=== PATIENT | female | born 1985 | race Caucasian/White ===

== ENCOUNTER → 2017-05-28 | Outpatient (CLI) | payer BC ==
[2017-05-28 18:09] LABS: CH 30.9; CHCM 34.4; HCT 40.8 % (34.0-46.0); HGB 13.7 gm/dL (11.4-16.0); MCH 30.4 pg (25.0-35.0); MCHC 33.6 g/dL (31.0-37.0); MCV 90.5 fL (80.0-100.0); Mean Platelet Volume 7.8; RDW 13.6 % (11.5-15.5); WBC 8.4 k/uL (3.8-10.6)
[2017-05-28 18:23] LABS: ALT 52 U/L (9-52); AST 23 U/L (14-36); Alkaline Phosphatase 63 U/L (38-126); Anion Gap 11 mmol/L; Blood Urea Nitrogen 21 mg/dL (7-17); Calcium 9.8 mg/dL (8.4-10.2); Carbon Dioxide 26 mmol/L (22-30); Chloride 103 mmol/L (98-107); Cholesterol 206 mg/dL (<200); Glucose 113 mg/dL (74-99); HDL Cholesterol 46 mg/dL (40-60); Non-African American GFR(MDRD) >60 (>60 ml/min/1.73 sqM); Potassium 4.7 mmol/L (3.5-5.1); Sodium 140 mmol/L (137-145); Total Bilirubin 0.7 mg/dL (0.2-1.3); Total Protein 7.2 g/dL (6.3-8.2)
[2017-05-28 19:11] LABS: Vitamin B12 491 pg/mL (239-931)
== END | disposition home or self-care (01) ==
LOC: LABWHC1 17:23
PROVIDERS: ATTEND Family Medicine
DX: E04.9 Nontoxic goiter, unspecified (principal)
CPT/HCPCS: 36415; 80053; 80061; 82306; 82607; 84439; 84443; 85027; 86376; 86800

== ENCOUNTER → 2017-06-09 | Outpatient (CLI) | payer BC ==
--- NOTE | 2017-06-09 15:37 | US ---
EXAMINATION TYPE: US thyroid st tissue head/neck DATE OF EXAM: 06/09/2017 COMPARISON: NONE CLINICAL HISTORY: E04.9 NONTOXIC GOITER. Patient stated has band of neck thickening noted by dentist. GLAND SIZE: Right Lobe: 5.6 x 2.1 x 1.5 cm Overall Parenchyma: heterogenous Left Lobe: 4.3 x 1.7 x 1.1 cm Overall Parenchyma: heterogeneous Isthmus Thickness: 0.4 cm NODULES RIGHT: # of nodules measured on right: 0. Upper lateral lobe is noted on right thyroid. LEFT: # of nodules measured on left: 0 ISTHMUS: # of nodules measured in the isthmus: 0 Bilateral neck scanned, no evidence of lymphadenopathy. No discrete solid or cystic areas are evident. IMPRESSION: Mildly Heterogenous thyroid without discrete solid or cystic nodules.
== END | disposition home or self-care (01) ==
LOC: RADUSWWP 14:14
PROVIDERS: ATTEND Family Medicine
DX: E04.9 Nontoxic goiter, unspecified (principal)
CPT/HCPCS: 76536

== ENCOUNTER → 2019-01-14 | Outpatient (CLI) | payer BC | END | disposition home or self-care (01) | LOC: LABWHC1 13:55 | PROVIDERS: ATTEND Obstetrics & Gynecology | DX: O20.0 Threatened abortion (principal); Z3A.00 Weeks of gestation of pregnancy not specified | CPT/HCPCS: 36415; 84702 ==

== ENCOUNTER 2019-02-07 09:56 | Emergency (ER) | payer BC ==
[2019-02-07 10:01] VITALS: TEMP 97.8
--- NOTE | 2019-02-07 10:12 | ED ---
Extremity Problem HPI - General Chief complaint: Extremity Problem,Nontraumatic Stated complaint: poss blood clot Time Seen by Provider: 02/07/19 10:04 Source: patient, RN notes reviewed Mode of arrival: ambulatory Limitations: no limitations - History of Present Illness Initial comments: 33-year-old female presents emergency Department chief complaint right leg pain, swelling and warmth. Patient states that she woke up tonight with the cramping that was severe, took a long period time to resolve. Patient states she occasionally does get these cramps was never had this was a long. Patient states she saw some soreness this morning. Patient is concerned about possible DVT ago she denies any history or risk factors. Denies hormone therapy, control, smoking history, family history of clots or clotting disorders. Patient states she did travel tramadol though she was on the vehicle for a few hours. - Related Data Home Medications Medication Instructions Recorded Confirmed Labetalol [Trandate] 100 mg PO BID 02/07/19 02/07/19 Allergies Allergy/AdvReac Type Severity Reaction Status Date / Time sulfamethoxazole Allergy Unknown Verified 02/07/19 10:21 [From Bactrim] Childhood trimethoprim [From Bactrim] Allergy Unknown Verified 02/07/19 10:21 Childhood Review of Systems ROS Statement: Those systems with pertinent positive or pertinent negative responses have been documented in the HPI. ROS Other: All systems not noted in ROS Statement are negative. Past Medical History Past Medical History: Asthma Additional Past Medical History / Comment(s): Gestational diabetes History of Any Multi-Drug Resistant Organisms: None Reported Past Surgical History: Adenoidectomy, Tonsillectomy Additional Past Surgical History / Comment(s): wisdom teeth extraction Past Anesthesia/Blood Transfusion Reactions: No Reported Reaction Past Psychological History: Anxiety Smoking Status: Never smoker Past Alcohol Use History: None Reported Past Drug Use History: None Reported - Past Family History Mother Family Medical History: Diabetes Mellitus General Exam Limitations: no limitations General appearance: alert, in no apparent distress Head exam: Present: atraumatic, normocephalic, normal inspection Respiratory exam: Present: normal lung sounds bilaterally. Absent: respiratory distress, wheezes, rales, rhonchi, stridor Cardiovascular Exam: Present: regular rate, normal rhythm, normal heart sounds. Absent: systolic murmur, diastolic murmur, rubs, gallop, clicks GI/Abdominal exam: Present: soft, normal bowel sounds. Absent: distended, tenderness, guarding, rebound, rigid Extremities exam: Present: other (Right calf there is tenderness with palpation, mild swelling, pedal pulses equal bilaterally, there is mild area of warmth with no erythema.) Skin exam: Present: warm, dry, intact, normal color. Absent: rash Course Vital Signs 02/07/19 09:58 Temperature 97.8 F Pulse Rate 90 Respiratory 18 Rate Blood Pressure 131/82 O2 Sat by Pulse 98 Oximetry Medical Decision Making - Medical Decision Making 33-year-old female presented for Pain. Ultrasound is negative for acute DVT. Patient has leg cramps, pain related to muscle spasm. Patient will be discharged. Disposition Clinical Impression: Calf pain, Leg cramp Disposition: HOME SELF-CARE Condition: Stable Instructions (If sedation given, give patient instructions): Leg Cramps (ED) Additional Instructions: Please return to the Emergency Department if symptoms worsen or any other concerns. Is patient prescribed a controlled substance at d/c from ED?: No Referrals: Tomasz Sanchez III, MD [Primary Care Provider] - 1-2 days
--- NOTE | 2019-02-07 11:10 | US ---
EXAMINATION TYPE: US venous doppler duplex LE RT DATE OF EXAM: 02/07/2019 10:10 AM COMPARISON: NONE CLINICAL HISTORY: 33-year-old female Pain. Right calf pain x 1 day SIDE PERFORMED: Right TECHNIQUE: The lower extremity deep venous system is examined utilizing real time linear array sonog erinn with graded compression, doppler sonography and color-flow sonography. FINDINGS: VESSELS IMAGED: External Iliac Vein (EIV) Common Femoral Vein Deep Femoral Vein Greater Saphenous Vein * Femoral Vein Popliteal Vein Small Saphenous Vein * Proximal Calf Veins (* superficial vessels) Right Leg: Appears negative for DVT IMPRESSION: No evidence for DVT within the right lower extremity imaged from the groin to the upper calf.
[2019-02-07 11:57] VITALS: BP 122/86; PULSE 97; RESP 20
== END 2019-02-07 11:57 | disposition home or self-care (01) ==
LOC: EC 09:56
DX: G47.62 Sleep related leg cramps (principal); M79.661 Pain in right lower leg; M62.831 Muscle spasm of calf; Z79.899 Other long term (current) drug therapy; Z88.1 Allergy status to other antibiotic agents; Z88.2 Allergy status to sulfonamides
CPT/HCPCS: 99283

== ENCOUNTER → 2019-02-11 | Outpatient (CLI) | payer BC | END | disposition home or self-care (01) | LOC: LABWHC1 10:22 | PROVIDERS: ATTEND Obstetrics & Gynecology | DX: N91.2 Amenorrhea, unspecified (principal) | CPT/HCPCS: 36415; 84702 ==

== ENCOUNTER → 2019-02-13 | Outpatient (CLI) | payer BC | END | disposition home or self-care (01) | LOC: LABWHC1 10:03 | PROVIDERS: ATTEND Obstetrics & Gynecology | DX: Z34.80 Encounter for supervision of other normal pregnancy, unspecified trimester (principal) | CPT/HCPCS: 36415; 84702 ==

== ENCOUNTER → 2019-04-16 | Outpatient (CLI) | payer BC | END | disposition home or self-care (01) | LOC: LABWHC1 10:07 | PROVIDERS: ATTEND Obstetrics & Gynecology | DX: O24.419 Gestational diabetes mellitus in pregnancy, unspecified control (principal); Z3A.00 Weeks of gestation of pregnancy not specified | CPT/HCPCS: 36415; 82950 ==

== ENCOUNTER 2019-07-29 17:55 | Outpatient (CLI) | payer BC ==
[2019-07-29 20:08] LABS: Basophils # (A) 0.1 k/uL (0-0.2); Basophils % (A) 1 %; Eosinophils # (A) 0.2 k/uL (0-0.7); Eosinophils % (A) 2 %; HCT 34.4 % (34.0-46.0); HGB 11.4 gm/dL (11.4-16.0); Lymphocytes % (A) 22 %; MCH 30.3 pg (25.0-35.0); MCV 91.7 fL (80.0-100.0); Mean Platelet Volume 7.3; Monocytes # (A) 0.4 k/uL (0-1.0); Monocytes % (A) 4 %; Neutrophils # (A) 6.2 k/uL (1.3-7.7); Neutrophils % (A) 70 %; Platelet Count 260 k/uL (150-450); RBC 3.75 m/uL (3.80-5.40); RDW 13.7 % (11.5-15.5); WBC 8.9 k/uL (3.8-10.6)
--- NOTE | 2019-07-29 20:20 | US ---
EXAMINATION TYPE: US gallbladder DATE OF EXAM: 07/29/2019 COMPARISON: NONE CLINICAL HISTORY: pain rt upper quad. Pain right side x 5 hours. HTN.Patient is . EXAM MEASUREMENTS: Liver Length: 19.8 cm Gallbladder Wall: 0.26 cm CBD: not seen with certainty Right Kidney: 11.8 x 6.4 x 5.6 cm Limited due to body habitus and overlying bowel gas Pancreas: limited, ?Portions seen slightly hyperechoic Liver: Appears enlarged. Hypoechoic area with indistinct border seen anterior to the gallbladder sug gestive of focal fatty sparing? measurin.1 x 1.9 x 1.5 cm Gallbladder: appears to be wnl Evidence for sonographic Luna's sign: no CBD: not seen with certainty Right Kidney: No hydronephrosis or masses seen, possible column of Sj IMPRESSION: Mild hepatomegaly. No gallstones or dilated ducts. 2 cm hypoechoic area in the liver amy cent to the gallbladder could be a hemangioma or fatty sparing..
[2019-07-29 20:40] LABS: ALT 27 U/L (9-52); AST 29 U/L (14-36); African American GFR (CKD) >90 (>60 ml/min/1.73 sqM); Albumin 3.5 g/dL (3.5-5.0); Alkaline Phosphatase 55 U/L (38-126); Anion Gap 8 mmol/L; Blood Urea Nitrogen 10 mg/dL (7-17); Calcium 9.2 mg/dL (8.4-10.2); Carbon Dioxide 23 mmol/L (22-30); Chloride 105 mmol/L (98-107); Glucose 87 mg/dL (74-99); Sodium 136 mmol/L (137-145); Total Bilirubin 0.5 mg/dL (0.2-1.3); Total Protein 6.2 g/dL (6.3-8.2)
[2019-07-29 23:12] VITALS: BP 130/73; PULSE 72; RESP 16; TEMP 98.5
--- NOTE | 2019-08-05 08:36 | P.MSEPDOC ---
Presenting Problems - Arrival Data Date of Arrival on Unit: 07/29/19 Time of Arrival on Unit: 17:55 Mode of Transport: Wheelchair - Complaint OB-Reason for Admission/Chief Complaint: Pain Comment: pt presented to er desk with complaints sharp constant abdominal pain that. started 2 hours ago. rates at 8 of 10. states is high risk due to gest dm and advanced. maternal age. to Triage for eval Medical History - Information : 3 Para: 2 Term: 2 : 0 Abortions: Spontaneous or Elective: 0 Number of Living Children: 2 - Gestational Age Gestational Age by KRISTI (wks/days): 28 Weeks and 2 Days - History Complications: GDM Comment: pt very teary state pain does not feel like contractions at all not a squeezing. pain. states regular bms no constipation, no history bowel or gall bladder issues Review of Systems - Review of Systems Constitutional: No problems Breast: No problems ENT: No problems Cardiovascular: No problems Respiratory: No problems Gastrointestinal: No problems Genitourinary: No problems Musculoskeletal: No problems Neurological: No problems Skin: No problems Vital Signs - Temperature Temperature: 98.5 F Temperature Source: Oral - Pulse Right Pulse Rate: 72 Pulse Assessment Method: Automatic Cuff - Respirations Respiratory Rate: 16 Oxygen Delivery Method: Room Air O2 Sat by Pulse Oximetry: 100 - Blood Pressure Right Arm Blood Pressure: 130/73 Blood Pressure Mean: 92 Blood Pressure Source: Automatic Cuff Medical Screen Scoring (Pre) - Cervical Exam Dilation: Exam Deferred Effacement: Exam Deferred - Uterine Contractions Frequency: N/A - Maternal Vital Signs Maternal Temperature: N/A Maternal Blood Pressure: N/A Signs of Preeclampsia: N/A Maternal Respirations: N/A - Maternal Trauma Maternal Trauma: N/A - Assessment - Baby A Baseline FHR: 140 Heart Rate - NICHD Category: Category I (Normal) = 0 NST: Reactive Position: Non-vertex & not laboring = 3 Station: N/A - Total Score - Baby A Total Score - Baby A: 3 - Total Score - Baby B Total Score - Baby B: 0 - Total Score - Baby C Total Score - Baby C: 0 - Level of Risk - Baby A Level of Risk - Baby A: Low (0-5) - Level of Risk - Baby B Level of Risk - Baby B: Low (0-5) - Level of Risk - Baby C Level of Risk - Baby C: Low (0-5) Physician Notification (Pre) - Physician Notified Physician Notified Date: 07/29/19 Physician Notified Time: 18:34 Physician/Practitioner Notifed:: Dr Loja Spoke With: Dr Loja New Order Received: Yes - Notification Comment Comment: 1833 Dr Loja notified pt here for sudden onset sharp constant abd pain about 2 hours. ago. Denies history of bowel issues or gall bladder issues. no contractions. nst. reactive for 28 weeks. cat 1 fhr . orders for labs to be drawn. 2054 dewayne remains in department. reviewed labs and ultrasound states pt february. discharge home with instructions for bland diet return with worsening of symptoms Disposition - Disposition OB Disposition: Discharge to home Discharge Date: 07/29/19 Discharge Time: 21:00 I agree with the RN Medical Screening Exam: Yes Risk & Benefit of care provided described in d/c instruction: Yes Diagnosis: RIGHT UPPER QUADRANT PAIN
== END 2019-07-29 21:00 | disposition home or self-care (01) ==
LOC: FBPOP 17:55
PROVIDERS: ATTEND Obstetrics & Gynecology
DX: O98.813 Other maternal infectious and parasitic diseases complicating pregnancy, third trimester (principal); R16.0 Hepatomegaly, not elsewhere classified; R10.11 Right upper quadrant pain; Z3A.28 28 weeks gestation of pregnancy
CPT/HCPCS: 59025; 76705; 80053; 85025; 99213

== ENCOUNTER 2019-09-20 16:56 | Outpatient (CLI) | payer BC ==
[2019-09-20] MEDS ORDERED: ACETAMINOPHEN TAB 325 MG TAB PO STA (17:39)
[2019-09-20 17:53] LABS: Appearance,Urine Clear (Clear); Bilirubin,Urine Negative (Negative); Blood,Urine Negative (Negative); Color,Urine Yellow; Glucose,Urine (UA) Negative (Negative); Ketones,Urine 1+ (Negative); Leukocyte Esterase,Urine Negative (Negative); Nitrite,Urine Negative (Negative); Protein,Urine Negative (Negative); Specific Gravity,Urine 1.012 (1.001-1.035); Urobilinogen,Urine <2.0 mg/dL (<2.0)
[2019-09-20 18:03] LABS: Basophils % (A) 0 %; Eosinophils # (A) 0.2 k/uL (0-0.7); Eosinophils % (A) 2 %; HCT 36.3 % (34.0-46.0); HGB 12.5 gm/dL (11.4-16.0); Lymphocytes # (A) 2.1 k/uL (1.0-4.8); Lymphocytes % (A) 24 %; MCHC 34.3 g/dL (31.0-37.0); MCV 90.5 fL (80.0-100.0); Mean Platelet Volume 7.3; Monocytes # (A) 0.4 k/uL (0-1.0); Monocytes % (A) 4 %; Neutrophils # (A) 5.9 k/uL (1.3-7.7); Neutrophils % (A) 68 %; Platelet Count 243 k/uL (150-450); RBC 4.02 m/uL (3.80-5.40); RDW 13.7 % (11.5-15.5); WBC 8.6 k/uL (3.8-10.6)
[2019-09-20 18:07] LABS: Creatinine,Urine Random 66.2 mg/dL
[2019-09-20 18:11] LABS: ALT 22 U/L (9-52); AST 21 U/L (14-36); African American GFR (CKD) >90 (>60 ml/min/1.73 sqM); Blood Urea Nitrogen 10 mg/dL (7-17); LDH 400 U/L (313-618); Non-African American GFR(CKD) >90 (>60 ml/min/1.73 sqM); Uric Acid 3.6 mg/dL (3.7-7.4)
[2019-09-20 18:56] VITALS: BP 134/87; PULSE 93; RESP 16; TEMP 98.2
--- NOTE | 2019-09-20 19:06 | P.MSEPDOC ---
Presenting Problems - Arrival Data Date of Arrival on Unit: 09/20/19 Time of Arrival on Unit: 16:56 Mode of Transport: Ambulatory - Complaint OB-Reason for Admission/Chief Complaint: Headache, Elevated Blood Pressure Medical History - Information : 3 Para: 2 Term: 2 : 0 Abortions: Spontaneous or Elective: 0 Number of Living Children: 2 - Gestational Age Gestational Age by KRISTI (wks/days): 35 Weeks and 6 Days - History Complications: GDM Review of Systems - Review of Systems Constitutional: No problems Breast: No problems ENT: No problems Cardiovascular: No problems Respiratory: No problems Gastrointestinal: No problems Genitourinary: No problems Musculoskeletal: No problems Neurological: No problems Skin: No problems Vital Signs - Temperature Temperature: 98.2 F Temperature Source: Oral - Pulse Right Brachial Pulse Rate: 93 Pulse Assessment Method: Automatic Cuff - Respirations Respiratory Rate: 16 Oxygen Delivery Method: Room Air O2 Sat by Pulse Oximetry: 97 - Blood Pressure Right Arm Blood Pressure: 134/87 Blood Pressure Mean: 102 Blood Pressure Source: Automatic Cuff Medical Screen Scoring (Pre) - Cervical Exam Dilation: Exam Deferred Effacement: Exam Deferred Membranes: Intact - Uterine Contractions Frequency: > 5 minutes apart = 1 Duration: N/A Intensity: N/A - Maternal Vital Signs Maternal Temperature: N/A Maternal Blood Pressure: N/A Signs of Preeclampsia: N/A Maternal Respirations: N/A - Maternal Trauma Maternal Trauma: N/A - Assessment - Baby A Baseline FHR: 140 Heart Rate - NICHD Category: Category I (Normal) = 0 NST: Reactive Position: N/A Station: N/A - Total Score - Baby A Total Score - Baby A: 1 - Total Score - Baby B Total Score - Baby B: 1 - Total Score - Baby C Total Score - Baby C: 1 - Level of Risk - Baby A Level of Risk - Baby A: Low (0-5) - Level of Risk - Baby B Level of Risk - Baby B: Low (0-5) - Level of Risk - Baby C Level of Risk - Baby C: Low (0-5) - Pain Assessment Pain Location and Character: Head, Frontal Pain Scale Used: Numeric (1 - 10) Pain Intensity: 1 Pain Description: *Acute, Dull Pain Frequency: Intermittent Pain Duration Units: Minutes Pain Behavior: None Exhibited Physician Notification (Pre) - Physician Notified Physician Notified Date: 09/20/19 Physician Notified Time: 18:12 New Order Received: Yes - Notification Comment Comment: Dr. Zuleta in unit. Report given. VS WNL. Reactive NST. Labs reviewed per Dr. Zuleta. Orders recieved to d/c pt to home. Disposition - Disposition OB Disposition: Discharge to home Discharge Date: 09/20/19 Discharge Time: 18:20 I agree with the RN Medical Screening Exam: Yes Risk & Benefit of care provided described in d/c instruction: Yes Diagnosis: GESTATIONAL HTN W/O SIGNIFICANT PROTEINURIA, THIRD TRIMESTER (Patient was sent over from the office by Dr. Wong for evaluation of a elevated blood pressure. Patient also had a headache at that time. Patient's blood pressures here were normal. Preeclampsia labs were normal. heart tones were category 1. At this point there is no evidence of gestational hypertension that is persistent. There is no evidence of compromise. Plan at this time was discharged home with follow-up maternal- medicine on as scheduled. Patient was given instructions to return if she had signs or symptoms of preeclampsia or other concerns.)
== END 2019-09-20 18:20 | disposition home or self-care (01) ==
LOC: FBPOP 16:56
PROVIDERS: ATTEND Obstetrics & Gynecology
DX: O13.3 Gestational [pregnancy-induced] hypertension without significant proteinuria, third trimester (principal); Z3A.35 35 weeks gestation of pregnancy
CPT/HCPCS: 59025; 81003; 82565; 82570; 83615; 84156; 84450; 84460; 84520; 84550; 85025; 99213

== ENCOUNTER 2019-09-27 13:57 | Outpatient (CLI) | payer BC ==
[2019-09-27 14:46] LABS: Appearance,Urine Clear (Clear); Bilirubin,Urine Negative (Negative); Blood,Urine Negative (Negative); Color,Urine Light Yellow; Glucose,Urine (UA) 1+ (Negative); Ketones,Urine Negative (Negative); Leukocyte Esterase,Urine Negative (Negative); Nitrite,Urine Negative (Negative); PH, Urine 5.5 (5.0-8.0); Protein,Urine Negative (Negative); Specific Gravity,Urine 1.008 (1.001-1.035); Urobilinogen,Urine <2.0 mg/dL (<2.0)
[2019-09-27 14:50] LABS: Basophils % (A) 0 %; Eosinophils # (A) 0.1 k/uL (0-0.7); Eosinophils % (A) 1 %; HCT 34.3 % (34.0-46.0); HGB 11.7 gm/dL (11.4-16.0); Lymphocytes # (A) 1.6 k/uL (1.0-4.8); Lymphocytes % (A) 24 %; MCH 30.7 pg (25.0-35.0); MCV 90.2 fL (80.0-100.0); Mean Platelet Volume 7.9; Monocytes # (A) 0.2 k/uL (0-1.0); Monocytes % (A) 4 %; Neutrophils # (A) 4.7 k/uL (1.3-7.7); Neutrophils % (A) 70 %; Platelet Count 210 k/uL (150-450); RDW 13.7 % (11.5-15.5); WBC 6.6 k/uL (3.8-10.6)
[2019-09-27 14:55] LABS: ALT 26 U/L (9-52); AST 19 U/L (14-36); African American GFR (CKD) >90 (>60 ml/min/1.73 sqM); Blood Urea Nitrogen 10 mg/dL (7-17); LDH 348 U/L (313-618); Non-African American GFR(CKD) >90 (>60 ml/min/1.73 sqM); Uric Acid 3.8 mg/dL (3.7-7.4)
[2019-09-27 15:38] VITALS: BP 139/60; PULSE 89; RESP 18; TEMP 96.4
--- NOTE | 2019-09-28 10:30 | P.MSEPDOC ---
Presenting Problems - Arrival Data Date of Arrival on Unit: 09/27/19 Time of Arrival on Unit: 13:57 Mode of Transport: Ambulatory - Complaint OB-Reason for Admission/Chief Complaint: Other Medical History - Gestational Age Gestational Age by KRISTI (wks/days): 36 Weeks and 6 Days - History Complications: GBS+ Review of Systems - Review of Systems Constitutional: No problems Breast: No problems ENT: No problems Cardiovascular: No problems Respiratory: No problems Gastrointestinal: No problems Genitourinary: No problems Musculoskeletal: No problems Neurological: No problems Skin: No problems Vital Signs - Temperature Temperature: 96.4 F - Pulse Right Brachial Pulse Rate: 89 Pulse Assessment Method: Automatic Cuff - Respirations Respiratory Rate: 18 Oxygen Delivery Method: Room Air O2 Sat by Pulse Oximetry: 98 - Blood Pressure Right Arm Blood Pressure: 139/60 Blood Pressure Mean: 86 Blood Pressure Source: Automatic Cuff Physician Notification (Pre) - Physician Notified Physician Notified Date: 09/27/19 Physician Notified Time: 15:20 New Order Received: Yes - Notification Comment Comment: lab results given and bp given, orders to discharge pt home, follow up on labor and delivery on fri for scheduled induction Disposition - Disposition OB Disposition: Triage, Discharge to home, Written follow up instructions reviewed Discharge Date: 09/27/19 Discharge Time: 15:30 I agree with the RN Medical Screening Exam: Yes Risk & Benefit of care provided described in d/c instruction: Yes Diagnosis: GESTATIONAL HTN W/O SIGNIFICANT PROTEINURIA, THIRD TRIMESTER
== END 2019-09-27 15:30 | disposition home or self-care (01) ==
LOC: FBPOP 13:57
PROVIDERS: ATTEND Obstetrics & Gynecology
DX: O13.3 Gestational [pregnancy-induced] hypertension without significant proteinuria, third trimester (principal); Z3A.36 36 weeks gestation of pregnancy
CPT/HCPCS: 59025; 81003; 82565; 82570; 83615; 84156; 84450; 84460; 84520; 84550; 85025

== ENCOUNTER 2019-09-29 06:00 | Inpatient (IN) | payer BC ==
--- NOTE | 2019-09-28 18:48 | P.HPOB ---
History of Present Illness H&P Date: 09/28/19 This is a 34 y.o. female, 3, para 2, with an estimated date of confinement of 10/19/2019, estimated gestational age of 37-1/7 weeks, who presents for induction of labor due to gestational hypertension. She has a history of chronic hypertension and has been on Labetalol throughout her pregna ncy, but has been experiencing elevated blood pressures over the last week along with increased headaches. Pre-eclampsia workup has been negative. Her has also been complicated by gestational diabetes controlled with Metformin and diet. Recently her fasting sugars have been slightly elevated. She has been followed by maternal medicine throughout her and they have recommended delivery between 37 and 38 weeks due to the above problems. NSTs have been reactive and she is feeling good movement. She is feeling irregular contractions. labs: Hepatitis B surface antigen-neg RPR-NR Rubella-immune Blood type-A neg Antibody screen-neg, Rhogam was given at 28 weeks Hemoglobin-13.2 Random glucose-174 1 hr. GTT-196 Group B streptococcus-positive OB Hx: . History of 2 vaginal deliveries at term. Gi Asst Hx: No hx of STDs. Social Hx: . Works at [employer]. Review of Systems Constitutional: Denies chills, Denies fever Eyes: denies blurred vision, denies pain Ears, nose, mouth and throat: Reports headache, Denies sore throat Cardiovascular: Denies chest pain, Denies shortness of breath Respiratory: Denies cough Gastrointestinal: Reports abdominal pain (Irreg. ctxs) Genitourinary: Reports pelvic pain, Reports Musculoskeletal: Reports low back pain Integumentary: Denies pruritus, Denies rash Neurological: Denies numbness, Denies weakness Psychiatric: Reports anxiety, Reports depression Past Medical History Past Medical History: Asthma Additional Past Medical History / Comment(s): Gestational diabetes History of Any Multi-Drug Resistant Organisms: None Reported Past Surgical History: Adenoidectomy, Tonsillectomy Additional Past Surgical History / Comment(s): wisdom teeth extraction Past Anesthesia/Blood Transfusion Reactions: No Reported Reaction Past Psychological History: Anxiety, Depression Smoking Status: Never smoker Past Alcohol Use History: None Reported Past Drug Use History: None Reported - Past Family History Mother Family Medical History: Diabetes Mellitus Medications and Allergies Home Medications Medication Instructions Recorded Confirmed Type Labetalol [Trandate] 100 mg PO BID 02/07/19 09/27/19 History Aspirin [Children's Aspirin] 1 tab PO DAILY 07/29/19 09/27/19 History metFORMIN HCL 1 tab PO BID 07/29/19 09/27/19 History Pnv No.95/Ferrous Fum/Folic AC 1 each PO DAILY 09/27/19 09/27/19 History [ Multivitamin Tablet] Allergies Allergy/AdvReac Type Severity Reaction Status Date / Time sulfamethoxazole Allergy Unknown Verified 09/27/19 14:07 [From Bactrim] Childhood trimethoprim [From Bactrim] Allergy Nausea & Verified 09/27/19 14:07 Vomiting Exam Osteopathic Statement: *. No significant issues noted on an osteopathic structural exam other than those noted in the History and Physical/Consult. HEENT: within normal limits Heart: regular rate and rhythm Lungs: clear to auscultation bilaterally Abdomen: heart tones: reactive Cervix: 2.5 cm/60%/-2 Extremities: trace edema Assessment and Plan (1) 37 weeks gestation of Status: Acute Code(s): Z3A.37 - 37 WEEKS GESTATION OF SNOMED Co de(s): 09553833 (2) Gestational hypertension Status: Acute Code(s): O13.9 - GESTATIONAL HTN W/O SIGNIFICANT PROTEINURIA, UNSP TRIMESTER SNOMED Code(s): 436130757 (3) Chronic hypertension affecting Status: Acute Code(s): O10.919 - UNSP PRE-EXISTING HTN COMP , UNSP TRIMESTER SNOMED Code(s): 78196610 (4) Group B Streptococcus carrier, +RV culture, currently Status: Acute Code(s): O99.820 - STREPTOCOCCUS B CARRIER STATE COMPLICATING SNOMED Code(s): 4959720955834 (5) Gestational diabetes mellitus (GDM) affecting Status: Acute Code(s): O24.419 - GESTATIONAL DIABETES MELLITUS IN , UNSP CONTROL SNOMED Code(s): 90152148462870 Plan: Proceed with oxytocin induction of labor. Antibiotic prophylaxis for group B streptococcus. Will monitor sugars during labor. Expectant management.
[2019-09-29] MEDS ORDERED: OXYTOCIN 30 UNITS/500 ML NS 30 UNIT in SALINE 1 500ML.BAG IV SCH (06:11)
[2019-09-29] MEDS ORDERED: CARBOPROST TROMETHAMINE 250 MCG/ML 1 ML AMP IM PRN (06:11)
[2019-09-29] MEDS ORDERED: TERBUTALINE 1 MG/ML VIAL SQ PRN (06:11)
[2019-09-29] MEDS ORDERED: LIDOCAINE 0.5% (PF) 5 MG/ML (50 ML SDV) SQ PRN (06:11)
[2019-09-29] MEDS ORDERED: LIDOCAINE 1% 20 ML VIAL (10MG/ML) FOR IV START INTRADERMA PRN (06:11)
[2019-09-29] MEDS ORDERED: OXYTOCIN 10 UNIT/ML 1 ML VIAL IM PRN (06:11)
[2019-09-29] MEDS ORDERED: METHYLERGONOVINE 0.2 MG/ML 1 ML AMP IM PRN (06:11)
[2019-09-29] MEDS ORDERED: AMPICILLIN 2,000 MG in SODIUM CHLORIDE 0.9% 100 ML IVPB ONE (06:15)
[2019-09-29 06:25] LABS: Glucose,Whole Blood 100 mg/dL (75-99)
[2019-09-29] MEDS: LACTATED RINGERS 1,000 ML IV SCH ×2 (06:36→10:27)
[2019-09-29 06:39] LABS: Basophils % (A) 0 %; Eosinophils # (A) 0.1 k/uL (0-0.7); Eosinophils % (A) 1 %; HCT 35.9 % (34.0-46.0); HGB 12.5 gm/dL (11.4-16.0); Lymphocytes # (A) 2.1 k/uL (1.0-4.8); Lymphocytes % (A) 27 %; MCH 31.2 pg (25.0-35.0); MCV 89.1 fL (80.0-100.0); Mean Platelet Volume 7.8; Monocytes # (A) 0.3 k/uL (0-1.0); Monocytes % (A) 4 %; Neutrophils # (A) 5.1 k/uL (1.3-7.7); Neutrophils % (A) 67 %; Platelet Count 222 k/uL (150-450); RBC 4.03 m/uL (3.80-5.40); RDW 13.5 % (11.5-15.5); WBC 7.7 k/uL (3.8-10.6)
[2019-09-29] MEDS: LABETALOL 100 MG TAB PO SCH ×3 (06:50→19:38)
[2019-09-29 06:54] LABS: INR 0.8 (<1.2); Partial Thromboplastin Time 21.7 sec (22.0-30.0); Prothrombin Time 9.3 sec (9.0-12.0)
[2019-09-29 08:18] LABS: Glucose,Urine (UA) Negative (Negative); Ketones,Urine Negative (Negative); Protein,Urine Negative (Negative)
[2019-09-29 08:40] LABS: Glucose,Whole Blood 93 mg/dL (75-99)
[2019-09-29] MEDS ORDERED: AMPICILLIN 1,000 MG in SODIUM CHLORIDE 0.9% 50 ML IVPB SCH (10:00)
[2019-09-29 10:26] LABS: Glucose,Whole Blood 81 mg/dL (75-99)
[2019-09-29] MEDS ORDERED: ROPIVACAINE 100 MG, fentaNYL (PF) 200 MCG in SODIUM CHLORIDE 0.9% 76 ML EPIDURAL ONE (11:41)
[2019-09-29 12:28] LABS: Glucose,Whole Blood 82 mg/dL (75-99)
[2019-09-29] MEDS ORDERED: ZOLPIDEM 5 MG TAB PO PRN (13:45)
[2019-09-29] MEDS ORDERED: diphenhydrAMINE 50 MG CAP PO PRN (13:45)
[2019-09-29] MEDS ORDERED: OXYTOCIN 20 UNITS/1000 ML NS 1,000 ML IV SCH (13:45)
[2019-09-29] MEDS ORDERED: diphenhydrAMINE 50 MG/ML 1 ML VIAL IVP PRN ×2 (13:45)
[2019-09-29] MEDS ORDERED: LANOLIN CREAM 5 GM TUBE TOPICAL PRN (13:45)
[2019-09-29] MEDS ORDERED: HYDROCORTISONE 2.5% RECTAL CREAM 30 GM TUBE RECTAL PRN (13:45)
[2019-09-29] MEDS ORDERED: SIMETHICONE 80 MG CHEWABLE PO PRN (13:45)
[2019-09-29] MEDS ORDERED: BENZOCAINE/MENTHOL SPRAY 1 GM/SPRAY AEROSOL TOPICAL PRN (13:45)
[2019-09-29] MEDS ORDERED: diphenhydrAMINE 25 MG CAP PO PRN (13:45)
[2019-09-29] MEDS ORDERED: WITCH HAZEL 1 EACH MED..PAD TOPICAL PRN (13:45)
--- NOTE | 2019-09-29 14:00 | P.PROBDLV ---
Vaginal Delivery Note - . Vaginal Delivery Note: The patient progressed to complete dilation after oxytocin induction of labor and artificial rupture membranes with clear fluid noted. She did receive epidural anesthesia. Once reaching complete, she pushed for a couple pushes and infant taken to a [facility]. With one further push, the 's head delivered across the perineum followed by the anterior shoulder. Nose and mouth were bulb suctioned at the perineum. With one further push, the remainder the infant eas vnetura delivered and was placed on mother's abdomen. was then taken to warmer for evaluation by nursing staff. A viable female infant was noted with scores of 9 at 1 minute and 9 at 5 minutes and infant weight of 7 pounds 10.9 ounces. At this point placenta was not ready to separate. Inspection of the perineum revealed a first degree perineal laceration. This area was anesthetized with 1% lidocaine and then it was sutured with 3-0 Vicryl suture in a running locked fashion. After approximately 20 minutes, the placenta did separate with some manual assistance. A gloved hand was placed within the uterus and no further tissue was obtained. Several blood clots were removed following the placenta. Uterus did contract well and firmed up easily. Oxytocin was given. Estimated blood loss is approximately 200 mL's. Both mother and infant are in stable condition.
[2019-09-29 14:53] LABS: Hemoglobin A1C 5.2 % (4.0-6.0)
[2019-09-29] MEDS: IBUPROFEN 600 MG TAB PO PRN (17:19)
[2019-09-29] MEDS: SENNOSIDES-DOCUSATE SODIUM 1 EACH TAB PO SCH (19:38)
[2019-09-29] MEDS: ACETAMINOPHEN TAB 325 MG TAB PO PRN (22:15)
[2019-09-29 23:58] VITALS: TEMP 98
[2019-09-30] MEDS: IBUPROFEN 600 MG TAB PO PRN ×3 (01:35→13:38)
[2019-09-30] MEDS: ACETAMINOPHEN TAB 325 MG TAB PO PRN ×2 (04:42→09:57)
[2019-09-30] MEDS: SENNOSIDES-DOCUSATE SODIUM 1 EACH TAB PO SCH (07:30)
[2019-09-30] MEDS: LABETALOL 100 MG TAB PO SCH (07:38)
[2019-09-30 07:39] VITALS: BP 142/97; PULSE 81; RESP 18
[2019-09-30 08:16] LABS: Basophils % (A) 0 %; Eosinophils # (A) 0.1 k/uL (0-0.7); Eosinophils % (A) 1 %; HCT 33.5 % (34.0-46.0); HGB 11.5 gm/dL (11.4-16.0); Lymphocytes # (A) 1.8 k/uL (1.0-4.8); Lymphocytes % (A) 21 %; MCH 31.1 pg (25.0-35.0); MCHC 34.2 g/dL (31.0-37.0); MCV 90.9 fL (80.0-100.0); Mean Platelet Volume 7.8; Monocytes # (A) 0.3 k/uL (0-1.0); Monocytes % (A) 4 %; Neutrophils # (A) 6.2 k/uL (1.3-7.7); Neutrophils % (A) 73 %; Platelet Count 215 k/uL (150-450); RBC 3.69 m/uL (3.80-5.40); RDW 13.7 % (11.5-15.5); WBC 8.6 k/uL (3.8-10.6)
--- NOTE | 2019-09-30 08:51 | P.DS ---
Providers Date of admission: 09/29/19 06:00 Expected date of discharge: 09/30/19 Attending physician: Jacqueline Loja Primary care physician: Stated None - Discharge Diagnosis(es) (1) 37 weeks gestation of Current Visit: No Status: Acute (2) Gestational hypertension Current Visit: No Status: Acute (3) Chronic hypertension affecting Current Visit: No Status: Acute (4) Group B Streptococcus carrier, +RV culture, currently Current Visit: No Status: Acute (5) Gestational diabetes mellitus (GDM) affecting Current Visit: No Status: Acute Hospital Course: This is a 34-year-old female 3 para 2 at 37 and one sevenths weeks who presented for induction of labor secondary to gestational hypertension along with gestational diabetes on metformin. She underwent oxytocin induction of labor and delivered vaginally a viable female with scores of 9 at 1 minute and 9 at 5 minutes and weight of 7 pounds 10.9 ounces. Her course has been essentially uncomplicated. Lochia has been decreasing. Pain is fairly well controlled. She is bottle feeding. Vital signs are stable. Abdomen is soft with fundus firm and nontender. Extremities show negative Homans. Impression is status post vaginal delivery day #1. Plan is to discharge home today. She will continue on her labetalol 100 mg twice a day. She is instructed to stop the metformin but monitor sugars as needed. She will contact me if she has any severe high blood pressures or any concerning symptoms. Otherwise she will follow up in the office in 6 weeks for check. She will be given a prescription for ibuprofen as needed. Routine instructions are given. Procedures: Oxytocin induction of labor Spontaneous vaginal delivery of a viable female infant on 09/29/2019 Patient Condition at Discharge: Stable Plan - Discharge Summary New Discharge Prescriptions: New Ibuprofen [Motrin] 600 mg PO Q6HR PRN #60 tab PRN Reason: Mild Pain Or Fever >= 100.5 Continue Pnv No.95/Ferrous Fum/Folic AC [ Multivitamin Tablet] 1 each PO DAILY No Action Labetalol [Trandate] 100 mg PO BID metFORMIN HCL 1 tab PO BID Aspirin [Children's Aspirin] 1 tab PO DAILY Discharge Medication List Labetalol [Trandate] 100 mg PO BID 02/07/19 [History] Aspirin [Children's Aspirin] 1 tab PO DAILY 07/29/19 [History] metFORMIN HCL 1 tab PO BID 07/29/19 [History] Pnv No.95/Ferrous Fum/Folic AC [ Multivitamin Tablet] 1 each PO DAILY 09/27/19 [History] Ibuprofen [Motrin] 600 mg PO Q6HR PRN #60 tab 09/30/19 [Rx] Follow up Appointment(s)/Referral(s): Jacqueline Loja DO [Doctor of Osteopathic Medicine] - 6 Weeks Activity/Diet/Wound Care/Special Instructions: Instructions 1. Do not begin any exercise program for 3 weeks. 2. Do not resume sexual relations for 3 weeks or longer if uncomfortable. 3. You may take tub baths or showers at any time. 4. You may use tampons if desired after 3 weeks. 5. Keep the area of episiotomy (stitches) clean and dry. 6. If you are not nursing, wear a good fitting, supportive bra during the day and limit fluid intake for at least 1 week to prevent breast engorgement. 7. Call the office, [phone], within the next week to make appointment for your 6 week checkup if it has not already been made. 8. Report any of the following occurrences to the doctor promptly: a. Heavy, excessive bleeding b. Chills, fever c. Burning or frequency of urination d. Pain or redness and breasts if nursing e. Increasing pain or swelling in episiotomy (stitches). In addition to the above instructions, the following additional should be followed: 1. No heavy lifting or straining (exercising) until after 6 week checkup. 2. Keep abdominal incision clean and dry: You may wear a dressing if more comfortable. 3. Make office appointment for 10 days after going home or as instructed by her doctor. Discharge Disposition: HOME SELF-CARE
== END 2019-09-30 15:05 | disposition home or self-care (01) | DRG 807 ==
LOC: 4FBP 06:00
PROVIDERS: ADMIT Obstetrics & Gynecology; ATTEND Obstetrics & Gynecology
PROC: 0HQ9XZZ Repair Perineum Skin, External Approach (ICD-10-PCS; principal; 2019-09-29)
PROC: 10E0XZZ Delivery of Products of Conception, External Approach (ICD-10-PCS; 2019-09-29)
PROC: 3E033VJ Introduction of Other Hormone into Peripheral Vein, Percutaneous Approach (ICD-10-PCS; 2019-09-29)
DX: O13.4 Gestational [pregnancy-induced] hypertension without significant proteinuria, complicating childbirth (principal); Z37.0 Single live birth; O24.425 Gestational diabetes mellitus in childbirth, controlled by oral hypoglycemic drugs; O70.0 First degree perineal laceration during delivery; O99.344 Other mental disorders complicating childbirth; O99.52 Diseases of the respiratory system complicating childbirth; J45.909 Unspecified asthma, uncomplicated; F32.9 Major depressive disorder, single episode, unspecified; F41.9 Anxiety disorder, unspecified; O10.92 Unspecified pre-existing hypertension complicating childbirth; Z3A.37 37 weeks gestation of pregnancy; Z79.82 Long term (current) use of aspirin; Z79.84 Long term (current) use of oral hypoglycemic drugs; Z83.3 Family history of diabetes mellitus
CPT/HCPCS: 81003; 83036; 85025; 85610; 85730; 86850; 86870; 86880; 86900; 86901; 88307

== ENCOUNTER 2019-10-06 16:46 | Inpatient (IN) | payer BC ==
[2019-10-06] MEDS ORDERED: SODIUM CHLORIDE 0.9% 500 ML 500 ML IV STA (17:11)
[2019-10-06] MEDS ORDERED: LABETALOL 5 MG/ML VIAL MDV IVP STA ×2 (17:47→20:29)
--- NOTE | 2019-10-06 17:58 | ED ---
General Adult HPI - General Chief complaint: Headache Stated complaint: headache, elevated BP Time Seen by Provider: 10/06/19 17:09 Source: patient, RN notes reviewed Mode of arrival: ambulatory Limitations: no limitations - History of Present Illness Initial comments: 34-year-old female 1 week presents to the emergency department for a chief complaint of headache and hypertension. Patient states she checked her blood pressure at home and it was elevated. States she had a headache from high blood pressure before her livery. States she has been taking 100 mg of labetalol 3 times a day. States that she has had this headache for 3 days. denies visual changes, denies any weakness in upper or lower extremities. Patient has no other complaints at this time including shortness of breath, chest pain, abdominal pain, nausea or vomiting, or visual changes. - Related Data Home Medications Medication Instructions Recorded Confirmed Labetalol [Trandate] 100 mg PO BID 02/07/19 09/29/19 Aspirin [Children's Aspirin] 1 tab PO DAILY 07/29/19 09/29/19 metFORMIN HCL 1 tab PO BID 07/29/19 09/29/19 Pnv No.95/Ferrous Fum/Folic AC 1 each PO DAILY 09/27/19 09/29/19 [ Multivitamin Tablet] Previous Rx's Medication Instructions Recorded Ibuprofen [Motrin] 600 mg PO Q6HR PRN #60 tab 09/30/19 Allergies Allergy/AdvReac Type Severity Reaction Status Date / Time sulfamethoxazole Allergy Unknown Verified 09/29/19 06:10 [From Bactrim] Childhood trimethoprim [From Bactrim] Allergy Nausea & Verified 09/29/19 06:10 Vomiting Review of Systems ROS Statement: Those systems with pertinent positive or pertinent negative responses have been documented in the HPI. ROS Other: All systems not noted in ROS Statement are negative. Past Medical History Past Medical History: Asthma, Hypertension Additional Past Medical History / Comment(s): Gestational diabetes History of Any Multi-Drug Resistant Organisms: None Reported Past Surgical History: Adenoidectomy, Tonsillectomy Additional Past Surgical History / Comment(s): wisdom teeth extraction Past Anesthesia/Blood Transfusion Reactions: No Reported Reaction Past Psychological History: Anxiety, Depression Smoking Status: Never smoker Past Alcohol Use History: None Reported Past Drug Use History: None Reported - Past Family History Mother Family Medical History: Diabetes Mellitus General Exam Limitations: no limitations General appearance: alert, in no apparent distress Head exam: Present: atraumatic, normocephalic, normal inspection Eye exam: Present: normal appearance, PERRL, EOMI. Absent: scleral icterus, conjunctival injection, periorbital swelling ENT exam: Present: normal exam, mucous membranes moist Neck exam: Present: normal inspection, full ROM. Absent: tenderness, meningismus, lymphadenopathy Respiratory exam: Present: normal lung sounds bilaterally. Absent: respiratory distress, wheezes, rales, rhonchi, stridor Cardiovascular Exam: Present: regular rate, normal rhythm, normal heart sounds. Absent: systolic murmur, diastolic murmur, rubs, gallop, clicks Neurological exam: Present: alert, oriented X3, CN II-XII intact, normal gait, other (gcs 15) Psychiatric exam: Present: normal affect, normal mood Course Vital Signs 10/06/19 10/06/19 10/06/19 16:47 17:54 18:40 Temperature 97.9 F Pulse Rate 70 61 58 L Respiratory 19 18 18 Rate Blood Pressure 187/102 164/90 178/108 O2 Sat by Pulse 99 94 L 97 Oximetry 10/06/19 10/06/19 10/06/19 19:00 19:10 19:15 Temperature Pulse Rate 63 65 68 Respiratory 18 18 18 Rate Blood Pressure 160/64 149/91 168/95 O2 Sat by Pulse 97 96 97 Oximetry 10/06/19 10/06/19 19:23 19:35 Temperature Pulse Rate 65 60 Respiratory 18 18 Rate Blood Pressure 168/102 164/98 O2 Sat by Pulse 94 L 94 L Oximetry Medical Decision Making - Medical Decision Making Patient's initial blood pressure 187/102. CBC unremarkable. CMP shows a creatinine of 0.95. Patient does have 1+ protein on urine dipstick. She also has 56 white blood cells with greater than 182 red blood cells, this will be cultured before starting antibiotics. Given elevated blood pressure patient was started on labetalol drip as well as given 4 embolus of magnesium and maintained on 2 g maintenance magnesium per hour. Dr. Middleton consulted with Dr. Yao. Will be admitted to the labor and delivery floor. Pressure did improve to 149/91 and will continue to be monitored. - Lab Data Result diagrams: 10/06/19 18:08 10/06/19 18:08 Lab Results 10/06/19 10/06/19 10/06/19 Range/Units 18:08 18:08 18:45 WBC 5.4 (3.8-10.6) k/uL RBC 3.57 L (3.80-5.40) m/uL Hgb 11.1 L (11.4-16.0) gm/dL Hct 33.0 L (34.0-46.0) % MCV 92.4 (80.0-100.0) fL MCH 31.2 (25.0-35.0) pg MCHC 33.8 (31.0-37.0) g/dL RDW 13.4 (11.5-15.5) % Plt Count 245 (150-450) k/uL Neutrophils % 59 % Lymphocytes % 32 % Monocytes % 4 % Eosinophils % 3 % Basophils % 1 % Neutrophils # 3.2 (1.3-7.7) k/uL Lymphocytes # 1.7 (1.0-4.8) k/uL Monocytes # 0.2 (0-1.0) k/uL Eosinophils # 0.2 (0-0.7) k/uL Basophils # 0.0 (0-0.2) k/uL Sodium 139 (137-145) mmol/L Potassium 4.4 (3.5-5.1) mmol/L Chloride 108 H (98-107) mmol/L Carbon Dioxide 24 (22-30) mmol/L Anion Gap 7 mmol/L BUN 18 H (7-17) mg/dL Creatinine 0.95 (0.52-1.04) mg/dL Est GFR (CKD-EPI)AfAm 90 (>60 ml/min/1.73 sqM) Est GFR (CKD-EPI)NonAf 78 (>60 ml/min/1.73 sqM) Glucose 105 H (74-99) mg/dL Uric Acid 4.9 (3.7-7.4) mg/dL Calcium 9.1 (8.4-10.2) mg/dL Magnesium 2.0 (1.6-2.3) mg/dL Total Bilirubin 0.6 (0.2-1.3) mg/dL AST 38 H (14-36) U/L ALT 29 (4-34) U/L Alkaline Phosphatase 64 (38-126) U/L Lactate Dehydrogenase 479 (313-618) U/L Total Protein 6.0 L (6.3-8.2) g/dL Albumin 3.6 (3.5-5.0) g/dL Urine Color Light Red Urine Appearance Cloudy H (Clear) Urine pH 7.5 (5.0-8.0) Ur Specific Lloyd 1.011 (1.001-1.035) Urine Protein 1+ H (Negative) Urine Glucose (UA) Negative (Negative) Urine Ketones Negative (Negative) Urine Blood Large H (Negative) Urine Nitrite Negative (Negative) Urine Bilirubin Negative (Negative) Urine Urobilinogen <2.0 (<2.0) mg/dL Ur Leukocyte Esterase Large H (Negative) Urine RBC >182 H (0-5) /hpf Urine WBC 56 H (0-5) /hpf Ur Squamous Epith Cells 2 (0-4) /hpf Disposition Clinical Impression: Hypertension Disposition: ADMITTED IP TO THIS HOSP Condition: Fair Is patient prescribed a controlled substance at d/c from ED?: No Referrals: Vesna Whelan MD [Primary Care Provider] - 1-2 days Time of Disposition: 19:45
[2019-10-06] MEDS ORDERED: MAGNESIUM SULFATE-D5W PMX 1 GM in DEXTROSE/WATER 1 100ML.BAG IVPB SCH (18:00)
[2019-10-06] MEDS ORDERED: MAGNESIUM SULFATE-WATER PMX 4 GM in WATER FOR INJECTION 1 100ML.BAG IVPB ONE (18:00)
[2019-10-06] MEDS ORDERED: LABETALOL 100 MG in SODIUM CHLORIDE 0.9% 80 ML IV ONE (18:08)
[2019-10-06 18:20] LABS: Basophils % (A) 1 %; Eosinophils # (A) 0.2 k/uL (0-0.7); Eosinophils % (A) 3 %; HGB 11.1 gm/dL (11.4-16.0); Lymphocytes # (A) 1.7 k/uL (1.0-4.8); Lymphocytes % (A) 32 %; MCH 31.2 pg (25.0-35.0); MCHC 33.8 g/dL (31.0-37.0); MCV 92.4 fL (80.0-100.0); Mean Platelet Volume 7.9; Monocytes # (A) 0.2 k/uL (0-1.0); Monocytes % (A) 4 %; Neutrophils # (A) 3.2 k/uL (1.3-7.7); Neutrophils % (A) 59 %; Platelet Count 245 k/uL (150-450); RBC 3.57 m/uL (3.80-5.40); RDW 13.4 % (11.5-15.5); WBC 5.4 k/uL (3.8-10.6)
[2019-10-06 18:27] LABS: Albumin 3.6 g/dL (3.5-5.0); Calcium 9.1 mg/dL (8.4-10.2); Potassium 4.4 mmol/L (3.5-5.1); Total Bilirubin 0.6 mg/dL (0.2-1.3); Uric Acid 4.9 mg/dL (3.7-7.4)
[2019-10-06] MEDS: MAGNESIUM SULFATE-WATER PMX 20 GM in WATER FOR INJECTION 1 500ML.BAG IV SCH (19:16)
[2019-10-06] MEDS ORDERED: MORPHINE SULFATE 4 MG/ML SYRINGE IVP STA (19:35)
[2019-10-06] MEDS ORDERED: NALOXONE 0.4 MG/ML 1 ML VIAL IV PRN (19:36)
[2019-10-06 19:38] LABS: Appearance,Urine Cloudy (Clear); Bilirubin,Urine Negative (Negative); Blood,Urine Large (Negative); Color,Urine Light Red; Glucose,Urine (UA) Negative (Negative); Ketones,Urine Negative (Negative); Leukocyte Esterase,Urine Large (Negative); Nitrite,Urine Negative (Negative); PH, Urine 7.5 (5.0-8.0); Protein,Urine 1+ (Negative); RBC,Urine >182 /hpf (0-5); Specific Gravity,Urine 1.011 (1.001-1.035); Squamous Epithelial Cell,Urine 2 /hpf (0-4); Urobilinogen,Urine <2.0 mg/dL (<2.0); WBC,Urine 56 /hpf (0-5)
[2019-10-06] MEDS ORDERED: LABETALOL 200 MG TAB PO STA (21:50)
--- NOTE | 2019-10-06 22:01 | P.HPOB ---
History of Present Illness H&P Date: 10/06/19 Chief Complaint: preeclampsia 34-year-old presents with chronic hypertension and superimposed preeclampsia. She delivered one week ago. Her blood pressures have been controlled throughout her with 100 mg of labetalol twice daily. She presented today with a blood pressure of 180/107. She's been having a headache for the last 3 days which she thought to attribute to sleep deprivation but then she took her blood pressure today and her blood pressure was elevated at home so she came in. she has a headache and photophobia, decreased urine output and edema in her upper and lower extremities. Her liver enzymes were slightly elevated and in waiting on the PC ratio. She was started on magnesium sulfate and labetalol IV was pushed in the emergency room. Review of Systems All systems: negative Constitutional: Denies chills, Denies fever Eyes: denies blurred vision, denies pain Ears, nose, mouth and throat: Reports headache, Denies sore throat Cardiovascular: Denies chest pain, Denies shortness of breath Respiratory: Denies cough Gastrointestinal: Reports nausea, Denies abdominal pain, Denies diarrhea, Denies vomiting Genitourinary: Denies dysuria, Denies hematuria Musculoskeletal: Denies myalgias Integumentary: Denies pruritus, Denies rash Neurological: Denies numbness, Denies weakness Psychiatric: Denies anxiety, Denies depression Endocrine: Denies fatigue, Denies weight change Past Medical History Past Medical History: Asthma, Hypertension Additional Past Medical History / Comment(s): Gestational diabetes, one week History of Any Multi-Drug Resistant Organisms: None Reported Past Surgical History: Adenoidectomy, Tonsillectomy Additional Past Surgical History / Comment(s): wisdom teeth extraction Past Anesthesia/Blood Transfusion Reactions: No Reported Reaction Past Psychological History: Anxiety, Depression Smoking Status: Never smoker Past Alcohol Use History: None Reported Past Drug Use History: None Reported - Past Family History Mother Family Medical History: Diabetes Mellitus Medications and Allergies Home Medications Medication Instructions Recorded Confirmed Type Labetalol [Trandate] 100 mg PO BID 02/07/19 10/06/19 History Aspirin [Children's Aspirin] 81 mg PO DAILY 07/29/19 10/06/19 History metFORMIN HCL 1,000 mg PO BID 07/29/19 10/06/19 History Pnv No.95/Ferrous Fum/Folic AC 1 tab PO DAILY 09/27/19 10/06/19 History [ Multivitamin Tablet] Albuterol Nebulized [Ventolin 2.5 mg INHALATION RT-QID PRN 10/06/19 10/06/19 History Nebulized] Calcium Carbonate [Calcium] 600 mg PO DAILY 10/06/19 10/06/19 History Doxylamine Succinate [Unisom] 25 mg PO HS 10/06/19 10/06/19 History Vitamin B-6(Unknown Dose) 1 tab PO DAILY 10/06/19 10/06/19 History Allergies Allergy/AdvReac Type Severity Reaction Status Date / Time sulfamethoxazole Allergy Unknown Verified 10/06/19 20:26 [From Bactrim] Childhood trimethoprim [From Bactrim] Allergy Unknown Verified 10/06/19 20:26 Childhood Exam Osteopathic Statement: *. No significant issues noted on an osteopathic structural exam other than those noted in the History and Physical/Consult. Vital Signs Temp Pulse Resp BP Pulse Ox 10/06/19 21:00 72 18 144/88 94 L 10/06/19 20:40 98.0 F 81 18 139/79 94 L 10/06/19 20:20 67 18 160/93 94 L 10/06/19 19:50 67 18 171/96 96 10/06/19 19:35 60 18 164/98 94 L 10/06/19 19:23 65 18 168/102 94 L 10/06/19 19:15 68 18 168/95 97 10/06/19 19:10 65 18 149/91 96 10/06/19 19:00 63 18 160/64 97 10/06/19 18:40 58 L 18 178/108 97 10/06/19 17:54 61 18 164/90 94 L 10/06/19 16:47 97.9 F 70 19 187/102 99 Intake and Output 10/06/19 10/06/19 10/06/19 06:59 14:59 22:59 Other: Weight 128.956 kg Heart: Regular rate and rhythm Lungs: Clear to auscultation bilaterally Abdomen: Soft, nontender Extremities: Negative Homans sign, 2+ bilateral lower extremity edema, 1+ DTR Results Result Diagrams: 10/06/19 18:08 10/06/19 18:08 Abnormal Lab Results - Last 24 Hours (Table) 10/06/19 10/06/19 10/06/19 Range/Units 18:08 18:08 18:45 RBC 3.57 L (3.80-5.40) m/uL Hgb 11.1 L (11.4-16.0) gm/dL Hct 33.0 L (34.0-46.0) % Chloride 108 H (98-107) mmol/L BUN 18 H (7-17) mg/dL Glucose 105 H (74-99) mg/dL AST 38 H (14-36) U/L Total Protein 6.0 L (6.3-8.2) g/dL Urine Appearance Cloudy H (Clear) Urine Protein 1+ H (Negative) Urine Blood Large H (Negative) Ur Leukocyte Esterase Large H (Negative) Urine RBC >182 H (0-5) /hpf Urine WBC 56 H (0-5) /hpf Assessment and Plan (1) Preeclampsia in period Current Visit: Yes Status: Acute Code(s): O14.95 - UNSPECIFIED PRE- ECLAMPSIA, COMPLICATING THE PUERPERIUM SNOMED Code(s): 818491545 Plan: 1. Magnesium sulfate was started and will be continued for 24 hours. 2. Catheter placed 3. Seizure precautions 4. Clear liquid diet 5. Tylenol for headache 6. Labetalol Will be increased to 200 mg po twice a day with first dose now 7. Strict input and output 8. Monitor very closely for worsening preeclampsia or signs of magnesium toxicity
[2019-10-06 22:04] LABS: Creatinine,Urine Random 49.8 mg/dL; Protein/Creatinine Ratio,Urine 2.2
[2019-10-06] MEDS: ACETAMINOPHEN TAB 500 MG TAB PO PRN (23:18)
[2019-10-06] MEDS ORDERED: hydrALAZINE HCL 20 MG/ML 1 ML VIAL IVP STA (23:34)
[2019-10-07] MEDS: IBUPROFEN 600 MG TAB PO PRN ×2 (03:22→09:36)
[2019-10-07] MEDS: MAGNESIUM SULFATE-WATER PMX 20 GM in WATER FOR INJECTION 1 500ML.BAG IV SCH ×2 (05:25→22:33)
[2019-10-07] MEDS ORDERED: HYDROmorphone 1 MG/ML 1 ML SYRINGE IVP STA (05:41)
[2019-10-07] MEDS ORDERED: LORazepam 2 MG/ML INJ IV STA (06:03)
[2019-10-07 06:12] LABS: Glucose,Whole Blood 142 mg/dL (75-99)
[2019-10-07] MEDS: PRENATAL VIT-IRON-FOLIC ACID 1 EACH CAP PO SCH (08:11)
[2019-10-07] MEDS: ACETAMINOPHEN TAB 500 MG TAB PO PRN ×3 (08:11→20:32)
[2019-10-07] MEDS: LABETALOL 200 MG TAB PO SCH ×2 (09:03→20:35)
--- NOTE | 2019-10-07 12:50 | P.PN ---
Progress Note - Text Progress Note Date: 10/07/19 Patient is seen. She complains of continuing to have a headache and more pain around her eyes. She states the headache isn't any worse but it has not gone away. She stated her eyes just hurt. She denies any blurry vision. She denies any abdominal or pelvic pain. Her bleeding has been minimal. She is bottle feeding. She states she is not really hungry but she denies nausea or vomiting. She would like to get up to the shower when she can. Her blood pressures are running in the 150s over 80s. Advised I will consult with hospitalist covering for Dr. Vesna roblero her PCP. Will also order a head CT due to persistent headache. I will continue the magnesium sulfate until it has been at least 24 hours since it started. We'll continue to follow.
--- NOTE | 2019-10-07 15:26 | CT ---
EXAMINATION TYPE: CT brain wo/w con DATE OF EXAM: 10/07/2019 COMPARISON: None. HISTORY: LEIGH, post x1 week CT DLP: 2247 mGycm. Automated Exposure Control for Dose Reduction was Utilized. TECHNIQUE: CT scan of the head is performed without and with IV Contrast, patient injected with 100 mL of Isovue 300. FINDINGS: Noncontrast images show no acute intracranial hemorrhage or midline shift. The ventricles and sulci are within normal limits in size. Zhao-white matter differentiation is maintained. Postcon trast images show no suspicious enhancing intraparenchymal mass or abnormal enhancement. Cerebellar h emispheres are slightly low lying into foramen magnum axial image 5 for reference but not greater carolann n 5 mm inferior displacement to suggest Chiari type I malformation . [id number] mucosal thick ening left maxillary sinus with patchy fluid. Remainder paranasal sinuses are clear. Globes are intac t. IMPRESSION: Low-lying cerebellar tonsils without Chiari type I malformation. Acute on chronic left m axillary sinus disease.
[2019-10-07] MEDS ORDERED: FLUTICASONE 50MCG/SPRAY NASAL 16GM EA NOSTRIL PRN (16:59)
--- NOTE | 2019-10-07 17:07 | P.CONS ---
History of Present Illness - Reason for Consult Consult date: 10/07/19 Preeclampsia - Chief Complaint Headache - History of Present Illness Patient is a 34 old female with a known history of asthma, anxiety/depression, gestational diabetes, hypertension and 1 week came to ER with the complaints of headache 3 days. Denied blurry vision. But does have photophobia. Denied any focal weakness. denied cough. Patient does have stuffy nose and says that her 3-year-old son is having some upper respiratory infection. Denied any complaints of chest pain or shortness of breath. No leg swelling. No fever no chills. Patient was found to have elevated blood pressure 187/102 on admission. Patient does have high blood pressure before delivery and was well controlled with 100 mg of labetalol 3 times daily. Patient was given a dose of 20 mg of IV labetalol and hydralazine 10 mg IV in the ER. Blood pressure has been elevated with SBP around 150s/80s currently. CT of the head was ordered to rule out any acute intracranial abnormalities. Medicine service was consulted for uncontrolled blood pressure. Patient is currently on magnesium sulfate drip. Laboratory data showed WBC 5.4, hemoglobin 11.1 and platelets 2 45,000 Sodium 139 potassium 4.4, BUE and 18 and creatinine 0.95 AST 38 and ALT 29 Magnesium 5.3 Urinalysis showed cloudy with large leukocyte esterase and nitrite negative. RBCs greater than 182 and WBCs 56. Next line random urine creatinine level is 57.8 and random total urine protein 16. Urine protein creatinine ratio around 0.27 Review of Systems Review of Systems All systems: negative Constitutional: Denies chills, Denies fever Eyes: denies blurred vision, denies pain Ears, nose, mouth and throat: Reports headache, Denies sore throat Cardiovascular: Denies chest pain, Denies shortness of breath Respiratory: Denies cough Gastrointestinal: Reports nausea, Denies abdominal pain, Denies diarrhea, Denies vomiting Genitourinary: Denies dysuria, Denies hematuria Musculoskeletal: Denies myalgias Integumentary: Denies pruritus, Denies rash Neurological: Denies numbness, Denies weakness Psychiatric: Denies anxiety, Denies depression Endocrine: Denies fatigue, Denies weight change Past Medical History Past Medical History: Asthma, Hypertension Additional Past Medical History / Comment(s): Gestational diabetes, one week History of Any Multi-Drug Resistant Organisms: None Reported Past Surgical History: Adenoidectomy, Tonsillectomy Additional Past Surgical History / Comment(s): wisdom teeth extraction Past Anesthesia/Blood Transfusion Reactions: No Reported Reaction Past Psychological History: Anxiety, Depression Additional Psychological History / Comment(s): Hx depression Smoking Status: Never smoker Past Alcohol Use History: None Reported Past Drug Use History: None Reported - Past Family History Mother Family Medical History: Diabetes Mellitus Medications and Allergies Home Medications Medication Instructions Recorded Confirmed Type Labetalol [Trandate] 100 mg PO BID 02/07/19 10/06/19 History Aspirin [Children's Aspirin] 81 mg PO DAILY 07/29/19 10/06/19 History metFORMIN HCL 1,000 mg PO BID 07/29/19 10/06/19 History Pnv No.95/Ferrous Fum/Folic AC 1 tab PO DAILY 09/27/19 10/06/19 History [ Multivitamin Tablet] Albuterol Nebulized [Ventolin 2.5 mg INHALATION RT-QID PRN 10/06/19 10/06/19 H istory Nebulized] Calcium Carbonate [Calcium] 600 mg PO DAILY 10/06/19 10/06/19 History Doxylamine Succinate [Unisom] 25 mg PO HS 10/06/19 10/06/19 History Vitamin B-6(Unknown Dose) 1 tab PO DAILY 10/06/19 10/06/19 History Allergies Allergy/AdvReac Type Severity Reaction Status Date / Time sulfamethoxazole Allergy Unknown Verified 10/06/19 20:26 [From Bactrim] Childhood trimethoprim [From Bactrim] Allergy Unknown Verified 10/06/19 20:26 Childhood Physical Exam Vitals: Vital Signs Temp Pulse Pulse Resp BP BP Pulse Ox 10/07/19 14:00 97.6 F 74 16 152/89 93 L 10/07/19 11:48 97.4 F L 72 16 153/87 10/07/19 10:00 73 16 156/89 10/07/19 09:00 79 18 150/81 10/07/19 07:59 96.7 F L 76 18 144/72 10/07/19 06:53 86 16 134/76 10/07/19 06:00 81 16 151/84 10/07/19 05:10 81 16 155/86 10/07/19 04:00 88 133/78 10/07/19 03:00 98 16 122/75 98 10/07/19 02:00 97 16 126/77 95 10/07/19 01:15 96 16 133/72 10/07/19 00:15 155/88 10/06/19 23:56 96.5 F L 78 18 145/80 98 10/06/19 23:00 97.2 F L 68 18 165/88 96 10/06/19 22:25 97.2 F L 88 18 152/96 96 10/06/19 22:00 88 18 152/96 96 10/06/19 21:00 72 18 144/88 94 L 10/06/19 20:40 98.0 F 81 18 139/79 94 L 10/06/19 20:20 67 18 160/93 94 L 10/06/19 19:50 67 18 171/96 96 10/06/19 19:35 60 18 164/98 94 L 10/06/19 19:23 65 18 168/102 94 L 10/06/19 19:15 68 18 168/95 97 10/06/19 19:10 65 18 149/91 96 10/06/19 19:00 63 18 160/64 97 10/06/19 18:40 58 L 18 178/108 97 10/06/19 17:54 61 18 164/90 94 L 10/06/19 16:47 97.9 F 70 19 187/102 99 Intake and Output 10/07/19 10/07/19 10/07/19 06:59 14:59 22:59 Intake Total 1754.838 6431 Output Total 1449 2024 Balance 243.333 -510 Intake: IV 150 175 Magnesium Sulfate-Water 150 175 Pmx 20 gm In Water For Injection 1 500ml.bag @ 1 GM/HR 25 mls/hr IV .Q20H PAULETTE Rx#:[id number] Intake, IV Titration 943.333 140 Amount Magnesium Sulfate-Water 783.333 Pmx 20 gm In Water For Injection 1 500ml.bag @ 1 GM/HR 25 mls/hr IV .Q20H PAULETTE Rx#:[id number] Sodium Chloride 0.9% 1, 160 140 000 ml @ 20 mls/hr IV . Q24H PAULETTE Rx#:[id number] Oral 600 1200 Output: Urine 1450 2024 Other: Voiding Method Indwelling Catheter PHYSICAL EXAMINATION: Patient is lying in the bed comfortably, no acute distress, awake alert and oriented.. HEENT: Normocephalic. Neck is supple.minimal preseptal swelling and redness of eyes. Pupils reactive. Nostrils clear. Oral cavity is moist. Ears reveal no drainage. Neck reveals no JVD, carotid bruits, or thyromegaly. CHEST EXAMINATION: Trachea is central. Symmetrical expansion. Lung pressley clear to auscultation and percussion. CARDIAC: Normal S1, S2 with no gallops. No murmurs ABDOMEN: Soft. Bowel sounds normal. No organomegaly. No abdominal bruits. Extremities: reveal no edema. No clubbing or cyanosis Neurologically awake, alert, oriented x3 with well-coordinated movements. No focal deficits noted Skin: No rash or skin lesions. Psychiatric: Coperative. Nonsuicidal Musculoskeletal: No joint swelling or deformity. Normal range of motion. Results CBC & Chem 7: 10/06/19 18:08 10/06/19 18:08 Labs: Abnormal Lab Results - Last 24 Hours (Table) 10/06/19 10/06/19 10/06/19 Range/Units 18:08 18:08 18:45 RBC 3.57 L (3.80-5.40) m/uL Hgb 11.1 L (11.4-16.0) gm/dL Hct 33.0 L (34.0-46.0) % Chloride 108 H (98-107) mmol/L BUN 18 H (7-17) mg/dL Glucose 105 H (74-99) mg/dL POC Glucose (mg/dL) (75-99) mg/dL Magnesium (1.6-2.3) mg/dL AST 38 H (14-36) U/L Total Protein 6.0 L (6.3-8.2) g/dL Urine Appearance Cloudy H (Clear) Urine Protein 1+ H (Negative) Urine Blood Large H (Negative) Ur Leukocyte Esterase Large H (Negative) Urine RBC >182 H (0-5) /hpf Urine WBC 56 H (0-5) /hpf U Random Total Protein (<12) mg/dL 10/06/19 10/06/19 10/07/19 Range/Units 18:45 22:10 05:40 RBC (3.80-5.40) m/uL Hgb (11.4-16.0) gm/dL Hct (34.0-46.0) % Chloride (98-107) mmol/L BUN (7-17) mg/dL Glucose (74-99) mg/dL POC Glucose (mg/dL) (75-99) mg/dL Magnesium 5.3 H* (1.6-2.3) mg/dL AST (14-36) U/L Total Protein (6.3-8.2) g/dL Urine Appearance (Clear) Urine Protein (Negative) Urine Blood (Negative) Ur Leukocyte Esterase (Negative) Urine RBC (0-5) /hpf Urine WBC (0-5) /hpf U Random Total Protein 112 H 16 H (<12) mg/dL 10/07/19 Range/Units 06:06 RBC (3.80-5.40) m/uL Hgb (11.4-16.0) gm/dL Hct (34.0-46.0) % Chloride (98-107) mmol/L BUN (7-17) mg/dL Glucose (74-99) mg/dL POC Glucose (mg/dL) 142 H (75-99) mg/dL Magnesium (1.6-2.3) mg/dL AST (14-36) U/L Total Protein (6.3-8.2) g/dL Urine Appearance (Clear) Urine Protein (Negative) Urine Blood (Negative) Ur Leukocyte Esterase (Negative) Urine RBC (0-5) /hpf Urine WBC (0-5) /hpf U Random Total Protein (<12) mg/dL Microbiology - Last 24 Hours (Table) 10/06/19 18:45 Urine Culture - Preliminary Urine,Voided Assessment and Plan Assessment: Preeclampsia with severe features. Patient does have a systolic blood pressure greater than 180 mmHg and cerebral symptoms. acute on chronic left maxillary sinusitis Uncontrolled hypertension 1 week Asthma stable Gestational diabetes on metformin at home DVT prophylaxis with early ambulation Plan: Patient will be continued on labetalol 200 mg twice daily and low-dose Nifedipine XL 30 mg daily can be added if the systolic blood pressure is greater than 160 mmHg. Continue the symptomatic management for headache with Tylenol. Sinusitis could also be contributing to headache. will start on ceftriaxone 1 g daily and monitor for any improvement in symptoms. Patient is currently on magnesium sulfate drip for 24 hours. Continue the seizure precautions and liquid diet as tolerated. Follow-up urine culture report. Patient is currently symptomatic. We will continue to follow closely and further recommendations based on the clinical course. Time with Patient: Greater than 30
[2019-10-07] MEDS: NIFEdipine XL 30 MG TAB.ER.24 PO SCH (17:34)
[2019-10-07] MEDS: SODIUM CHLORIDE 0.9% 1,000 ML IV SCH (22:33)
[2019-10-08] MEDS: ACETAMINOPHEN TAB 500 MG TAB PO PRN (04:00)
--- NOTE | 2019-10-08 08:54 | P.DS ---
Providers Date of admission: 10/06/19 19:17 Expected date of discharge: 10/08/19 Attending physician: Sharron Yao Consults: 10/07/19 12:43 Consult Physician Urgent Consulting Provider: Daron De La Cruz Consult Reason/Comments: preeclampsia, persistent LEIGH Do you want consulting provider notified?: Yes Primary care physician: Vesna Whelan [place] [facility] Course: this is a 34-year-old female 3 para 3 who is 1 week who presented to the emergency room with headache and severely elevated blood pressures. She also had swelling around her eyes and photophobia. She was started on magnesium sulfate seizure prophylaxis and given IV hydralazine and labetalol in the emergency room. She was also continued on labetalol but the dose was increased. Medicine was consulted and a second blood pressure medicine with Procardia was added. CT of the head did show some sinusitis but no acute lesions. She was also started on Rocephin for possible sinusitis. Today she feels much better compared to when she was admitted. She still has a very dull minimal headache across the top of her forehead. She denies any vision changes currently. The photophobia is gone. She denies any pain. She would like to go home today if possible. Vital signs have shown mildly elevated blood pressures in the 150s over 80s this morning. Impression is status post vaginal delivery approximate 1 week, preeclampsia, chronic hypertension, possible sinusitis. Plan is to possibly discharge home today pending medicine evaluation. I have advised her to follow up with a 1-2 weeks in the office. Will confirm with medicine what medications she needs to go home on and follow- up with Dr. Vesna roblero after discharge. She is advised to return to the emerge ncy room if any severely high blood pressures, new symptoms, or any other concerns. Patient Condition at Discharge: Fair Plan - Discharge Summary New Discharge Prescriptions: No Action Labetalol [Trandate] 100 mg PO BID metFORMIN HCL 1,000 mg PO BID Aspirin [Children's Aspirin] 81 mg PO DAILY Pnv No.95/Ferrous Fum/Folic AC [ Multivitamin Tablet] 1 tab PO DAILY Vitamin B-6(Unknown Dose) 1 tab PO DAILY Doxylamine Succinate [Unisom] 25 mg PO HS Albuterol Nebulized [Ventolin Nebulized] 2.5 mg INHALATION RT-QID PRN PRN Reason: Shortness Of Breath Calcium Carbonate [Calcium] 600 mg PO DAILY Discharge Medication List Labetalol [Trandate] 100 mg PO BID 02/07/19 [History] Aspirin [Children's Aspirin] 81 mg PO DAILY 07/29/19 [History] metFORMIN HCL 1,000 mg PO BID 07/29/19 [History] Pnv No.95/Ferrous Fum/Folic AC [ Multivitamin Tablet] 1 tab PO DAILY 09/27/19 [History] Albuterol Nebulized [Ventolin Nebulized] 2.5 mg INHALATION RT-QID PRN 10/06/19 [History] Calcium Carbonate [Calcium] 600 mg PO DAILY 10/06/19 [History] Doxylamine Succinate [Unisom] 25 mg PO HS 10/06/19 [History] Vitamin B-6(Unknown Dose) 1 tab PO DAILY 10/06/19 [History] Follow up Appointment(s)/Referral(s): Vesna Whelan MD [Primary Care Provider] - 1-2 days Jacqueline Loja DO [Doctor of Osteopathic Medicine] - 10 Days Activity/Diet/Wound Care/Special Instructions: Activity as tolerated. Diet as tolerated. Discharge Disposition: HOME SELF-CARE
[2019-10-08] MEDS: NIFEdipine XL 30 MG TAB.ER.24 PO SCH (09:29)
[2019-10-08] MEDS: PRENATAL VIT-IRON-FOLIC ACID 1 EACH CAP PO SCH (09:29)
[2019-10-08] MEDS: LABETALOL 200 MG TAB PO SCH (09:29)
[2019-10-08 09:58] VITALS: TEMP 97.4
[2019-10-08 13:34] VITALS: BP 149/79; PULSE 72; RESP 16
== END 2019-10-08 13:30 | disposition home or self-care (01) | DRG 776 ==
LOC: EC 16:46 → 4FBP 19:17
PROVIDERS: ADMIT Obstetrics & Gynecology; ATTEND Obstetrics & Gynecology
DX: O11.5 Pre-existing hypertension with pre-eclampsia, complicating the puerperium (principal); O24.415 Gestational diabetes mellitus in pregnancy, controlled by oral hypoglycemic drugs; J01.00 Acute maxillary sinusitis, unspecified; O10.93 Unspecified pre-existing hypertension complicating the puerperium; J32.0 Chronic maxillary sinusitis; J45.909 Unspecified asthma, uncomplicated; Z72.820 Sleep deprivation; Z79.82 Long term (current) use of aspirin; Z79.84 Long term (current) use of oral hypoglycemic drugs; Z79.899 Other long term (current) drug therapy; Z90.49 Acquired absence of other specified parts of digestive tract; Z86.59 Personal history of other mental and behavioral disorders; Z98.890 Other specified postprocedural states; Z88.2 Allergy status to sulfonamides; Z83.3 Family history of diabetes mellitus
CPT/HCPCS: 36415; 70470; 80053; 81001; 82570; 83615; 83735; 84156; 84550; 85025; 87086; 93005; 96365; 96366; 96367; 96375; 99285

== ENCOUNTER 2019-10-22 10:04 | Observation (INO) | payer BC ==
--- NOTE | 2019-10-22 10:29 | ED ---
Dizziness HPI - General Source: patient Mode of arrival: ambulatory <Billy Johnson - Last Filed: 10/22/19 18:29> <Adilson May - Last Filed: 10/22/19 18:44> - General Chief Complaint: Dizziness Stated Complaint: Shooting pain in left arm Time Seen by Provider: 10/22/19 10:14 - History of Present Illness Initial Comments: Patient is a 34-year-old female with history of hypertension presenting to emergency Department with a chief complaint of lightheadedness. Patient reports she woke up this morning without any issues, began to wash dishes and felt a sudden onset of lightheadedness, nausea, and feeling clammy. She also reports sudden onset of pain in the left upper extremity without alleviating or exacerbating factors. Denies chest pain shortness of breath and vomiting. Denies any headaches, blurry vision, one-sided extremity weakness or paresthesias. Denies a history of hypercholesterolemia, family history of cardiovascular disease. Not a smoker. Patient currently takes two antihypertensive medications. Denies abdominal pain, back pain. (Billy Johnson) - Related Data Home Medications Medication Instructions Recorded Confirmed metFORMIN HCL 1,000 mg PO BID 07/29/19 10/22/19 Pnv No.95/Ferrous Fum/Folic AC 1 tab PO DAILY 09/27/19 10/22/19 [ Multivitamin Tablet] Albuterol Nebulized [Ventolin 2.5 mg INHALATION RT-QID PRN 10/06/19 10/22/19 Nebulized] Doxylamine Succinate [Unisom] 25 mg PO HS 10/06/19 10/22/19 Vitamin B-6(Unknown Dose) 1 tab PO DAILY 10/06/19 10/22/19 Acetaminophen Tab [Tylenol Tab] 1,000 mg PO Q6HR PRN 10/22/19 10/22/19 Metoprolol Succinate (ER) [Toprol 100 mg PO DAILY 10/22/19 10/22/19 Xl] NIFEdipine XL [Procardia XL] 60 mg PO DAILY 10/22/19 10/22/19 Allergies Allergy/AdvReac Type Severity Reaction Status Date / Time sulfamethoxazole Allergy Unknown Verified 10/22/19 11:56 [From Bactrim] Childhood trimethoprim [From Bactrim] Allergy Unknown Verified 10/22/19 11:56 Childhood Review of Systems ROS Other: All systems not noted in ROS Statement are negative. <Billy Johnson - Last Filed: 10/22/19 18:29> ROS Other: All systems not noted in ROS Statement are negative. <Adilson May - Last Filed: 10/22/19 18:44> ROS Statement: Those systems with pertinent positive or pertinent negative responses have been documented in the HPI. Past Medical History Past Medical History: Asthma, Hypertension Additional Past Medical History / Comment(s): Gestational diabetes, one week History of Any Multi-Drug Resistant Organisms: None Reported Past Surgical History: Adenoidectomy, Tonsillectomy Additional Past Surgical History / Comment(s): wisdom teeth extraction Past Anesthesia/Blood Transfusion Reactions: No Reported Reaction Past Psychological History: Anxiety, Depression Smoking Status: Never smoker Past Alcohol Use History: None Reported Past Drug Use History: None Reported - Past Family History Mother Family Medical History: Diabetes Mellitus <Billy Johnson - Last Filed: 10/22/19 18:29> General Exam Limitations: no limitations General appearance: alert, in no apparent distress, obese Head exam: Present: atraumatic, normocephalic, normal inspection Eye exam: Present: normal appearance, PERRL, EOMI. Absent: conjunctival injection, nystagmus Pupils: Present: normal accommodation ENT exam: Present: normal exam, normal oropharynx, mucous membranes moist, TM's normal bilaterally, normal external ear exam Neck exam: Present: normal inspection, full ROM Respiratory exam: Present: normal lung sounds bilaterally. Absent: respiratory distress, wheezes, rales Cardiovascular Exam: Present: regular rate, normal rhythm, normal heart sounds Extremities exam: Present: normal inspection, full ROM, normal capillary refill, other (+2 bilateral radial pulses bilaterally.). Absent: tenderness Back exam: Present: normal inspection, full ROM. Absent: tenderness Neurological exam: Present: alert, oriented X3, CN II-XII intact, normal gait, r eflexes normal (+ 1 patellar reflex bilaterally) Psychiatric exam: Present: normal affect, normal mood Skin exam: Present: warm, dry, intact, normal color <Billy Johnson - Last Filed: 10/22/19 18:29> General appearance: alert, in no apparent distress Head exam: Present: normocephalic Respiratory exam: Present: normal lung sounds bilaterally Cardiovascular Exam: Present: regular rate, normal rhythm, normal heart sounds Expanded Peripheral pulses: 2+: Radial (R), Radial (L), Posterior Tibialis (R), Posterior Tibialis (L), Dorsalis Pedis (R), Dorsalis Pedis (L) Neurological exam: Present: alert <Adilson May - Last Filed: 10/22/19 18:44> Course <Adilson May - Last Filed: 10/22/19 18:44> Vital Signs 10/22/19 10/22/19 10/22/19 10:07 11:30 12:00 Temperature 97.4 F L Pulse Rate 59 L 69 70 Respiratory 18 21 23 Rate Blood Pressure 113/77 126/84 135/90 O2 Sat by Pulse 100 98 98 Oximetry 10/22/19 10/22/19 10/22/19 12:30 13:00 16:50 Temperature Pulse Rate 75 71 75 Respiratory 27 H 18 18 Rate Blood Pressure 117/81 134/97 140/96 O2 Sat by Pulse 100 96 98 Oximetry - Reevaluation(s) Reevaluation #1: 10/22/19 12:25 Patient reevaluated by myself, Dr. May. Patient resting comfortably in bed and is symptom-free at this time. Patient is 3 weeks . Patient states while doing dishes today she felt lightheaded and had discomfort of her left arm. Discomfort is described as an ache. Patient states there was a little bit of her left shoulder as well. Patient denies ever having chest discomfort or dyspnea. X-ray reviewed. EKGs reviewed. Patient reevaluated. Case was discussed in detail with Dr. De La Cruz who does request d-dimer echo computed tomography scan consult with Maximilian and MRV. Cardiology has been paged. EKG #1 done at 1054 shows normal sinus rhythm at 71. CT 166. QRS 86. QT 410. QTc 445. Normal axis. Normal QRS. Nonspecific inferior ST. Repeat EKG at 1218 shows normal sinus rhythm at 80. CT 158. QRS 84. QT 390. QTC 449. Left axis. Normal QRS. No acute ST change. 10/22/19 17:34 Patient was seen by Dr. Bullard. CTA of the chest as well as MRI and MRV results reviewed. Case was earlier discussed with neural interventional list Dr. mcclellan, who did not feel patient needed another neurology evaluation at this time. 10/22/19 18:44 Patient was also updated on CT results as well as need for follow-up regarding aneurysm. (Adilson May) Medical Decision Making - Lab Data Result diagrams: 10/22/19 11:00 10/22/19 11:00 <Billy Johnson - Last Filed: 10/22/19 18:29> - Lab Data Result diagrams: 10/22/19 11:00 10/22/19 11:00 <Adilson May - Last Filed: 10/22/19 18:44> - Lab Data Lab Results 10/22/19 10/22/19 10/22/19 Range/Units 11:00 11:00 11:00 WBC 7.8 (3.8-10.6) k/uL RBC 4.73 (3.80-5.40) m/uL Hgb 13.6 (11.4-16.0) gm/dL Hct 41.9 (34.0-46.0) % MCV 88.6 (80.0-100.0) fL MCH 28.8 (25.0-35.0) pg MCHC 32.5 (31.0-37.0) g/dL RDW 12.2 (11.5-15.5) % Plt Count 319 (150-450) k/uL Neutrophils % 78 % Lymphocytes % 16 % Monocytes % 3 % Eosinophils % 1 % Basophils % 0 % Neutrophils # 6.1 (1.3-7.7) k/uL Lymphocytes # 1.3 (1.0-4.8) k/uL Monocytes # 0.2 (0-1.0) k/uL Eosinophils # 0.1 (0-0.7) k/uL Basophils # 0.0 (0-0.2) k/uL PT 9.6 (9.0-12.0) sec INR 0.9 (<1.2) APTT 21.0 L (22.0-30.0) sec D-Dimer (<0.60) mg/L FEU Sodium 138 (137-145) mmol/L Potassium 4.8 (3.5-5.1) mmol/L Chloride 104 (98-107) mmol/L Carbon Dioxide 25 (22-30) mmol/L Anion Gap 9 mmol/L BUN 17 (7-17) mg/dL Creatinine 1.03 (0.52-1.04) mg/dL Est GFR (CKD-EPI)AfAm 81 (>60 ml/min/1.73 sqM) Est GFR (CKD-EPI)NonAf 70 (>60 ml/min/1.73 sqM) Glucose 143 H (74-99) mg/dL Calcium 9.8 (8.4-10.2) mg/dL Magnesium 1.8 (1.6-2.3) mg/dL Total Bilirubin 1.0 (0.2-1.3) mg/dL AST 33 (14-36) U/L ALT 29 (4-34) U/L Alkaline Phosphatase 58 (38-126) U/L Troponin I (0.000-0.034) ng/mL Total Protein 7.5 (6.3-8.2) g/dL Albumin 4.8 (3.5-5.0) g/dL Influenza Type A RNA (Not Detectd) Influenza Type B (PCR) (Not Detectd) 10/22/19 10/22/19 10/22/19 Range/Units 11:00 11:00 11:00 WBC (3.8-10.6) k/uL RBC (3.80-5.40) m/uL Hgb (11.4-16.0) gm/dL Hct (34.0-46.0) % MCV (80.0-100.0) fL MCH (25.0-35.0) pg MCHC (31.0-37.0) g/dL RDW (11.5-15.5) % Plt Count (150-450) k/uL Neutrophils % % Lymphocytes % % Monocytes % % Eosinophils % % Basophils % % Neutrophils # (1.3-7.7) k/uL Lymphocytes # (1.0-4.8) k/uL Monocytes # (0-1.0) k/uL Eosinophils # (0-0.7) k/uL Basophils # (0-0.2) k/uL PT (9.0-12.0) sec INR (<1.2) APTT (22.0-30.0) sec D-Dimer 0.79 H (<0.60) mg/L FEU Sodium (137-145) mmol/L Potassium (3.5-5.1) mmol/L Chloride (98-107) mmol/L Carbon Dioxide (22-30) mmol/L Anion Gap mmol/L BUN (7-17) mg/dL Creatinine (0.52-1.04) mg/dL Est GFR (CKD-EPI)AfAm (>60 ml/min/1.73 sqM) Est GFR (CKD-EPI)NonAf (>60 ml/min/1.73 sqM) Glucose (74-99) mg/dL Calcium (8.4-10.2) mg/dL Magnesium (1.6-2.3) mg/dL Total Bilirubin (0.2-1.3) mg/dL AST (14-36) U/L ALT (4-34) U/L Alkaline Phosphatase (38-126) U/L Troponin I 0.223 H* (0.000-0.034) ng/mL Total Protein (6.3-8.2) g/dL Albumin (3.5-5.0) g/dL Influenza Type A RNA Not Detected (Not Detectd) Influenza Type B (PCR) Not Detected (Not Detectd) Disposition Is patient prescribed a controlled substance at d/c from ED?: No Time of Disposition: 18:30 <Billy Johnson - Last Filed: 10/22/19 18:29> <Adilson May - Last Filed: 10/22/19 18:44> Clinical Impression: Elevated troponin I level, Lightheadedness Disposition: ADMITTED IP TO THIS HOSP Condition: Stable Instructions (If sedation given, give patient instructions): Dizziness (ED) Additional Instructions: She will be admitted Referrals: Vesna Whelan MD [Primary Care Provider] - 1-2 days
[2019-10-22] MEDS ORDERED: ASPIRIN 81 MG PO STA (10:30)
[2019-10-22 11:29] LABS: Albumin 4.8 g/dL (3.5-5.0); Calcium 9.8 mg/dL (8.4-10.2); Magnesium 1.8 mg/dL (1.6-2.3); Potassium 4.8 mmol/L (3.5-5.1); Total Protein 7.5 g/dL (6.3-8.2)
--- NOTE | 2019-10-22 11:31 | XR ---
EXAMINATION TYPE: XR chest 2V DATE OF EXAM: 10/22/2019 COMPARISON: None INDICATION: Chest pain TECHNIQUE: Frontal and lateral views of the chest are obtained. FINDINGS: The heart size is normal. The pulmonary vasculature is normal. The lungs are clear. IMPRESSION: 1. No acute pulmonary process.
[2019-10-22 11:42] LABS: Basophils % (A) 0 %; Eosinophils # (A) 0.1 k/uL (0-0.7); Eosinophils % (A) 1 %; HCT 41.9 % (34.0-46.0); HGB 13.6 gm/dL (11.4-16.0); Lymphocytes # (A) 1.3 k/uL (1.0-4.8); Lymphocytes % (A) 16 %; MCH 28.8 pg (25.0-35.0); MCHC 32.5 g/dL (31.0-37.0); MCV 88.6 fL (80.0-100.0); Mean Platelet Volume 7.7; Monocytes # (A) 0.2 k/uL (0-1.0); Monocytes % (A) 3 %; Neutrophils # (A) 6.1 k/uL (1.3-7.7); Neutrophils % (A) 78 %; Platelet Count 319 k/uL (150-450); RBC 4.73 m/uL (3.80-5.40); RDW 12.2 % (11.5-15.5); WBC 7.8 k/uL (3.8-10.6)
[2019-10-22 11:48] LABS: INR 0.9 (<1.2); Prothrombin Time 9.6 sec (9.0-12.0)
[2019-10-22] MEDS ORDERED: ATORVASTATIN 40 MG TAB PO STA (12:03)
--- NOTE | 2019-10-22 14:15 | CT ---
CT CHEST FOR PULMONARY EMBOLISM. EXAMINATION TYPE: CT angio chest DATE OF EXAM: 10/22/2019 INDICATION: Arm discomfort and elevated troponin CT DLP: 1291.7 mGycm, Automated exposure control for dose reduction was used. CONTRAST: Patient injected with 100 mL of Isovue 370. COMPARISON: None TECHNIQUE: CT of the chest is performed on a spiral scan at 2 mm thick sections. 3-D MIP images yomaira nstructed by the technologist are reviewed on the computer in the coronal and sagittal planes. Dissec tion protocol utilized. FINDINGS: No persistent filling defects are evident to suggest an acute pulmonary embolism as visualized. The a sterling appears without evidence of dissection No mediastinal or hilar adenopathy enlarged by CT criteria is evident. The ascending aorta diameter at the level of the main pulmonary artery is 4.3 cm. The main pulmonary artery diameter at the bifur cation is 3.8 cm. Lung windows are clear. Limited CT section through the upper abdomen are unremarkable. IMPRESSIONS: 1. Ascending thoracic aortic aneurysm of 4.3 cm. 2. No acute pulmonary embolism. No aortic dissection is evident.
--- NOTE | 2019-10-22 15:33 | ECHOF ---
Referral Reason:nstemi MEASUREMENTS -------- HEIGHT: 165.1 cm WEIGHT: 120.2 kg BP: 134/97 RVIDd: 3.2 cm (< 3.3) IVSd: 1.3 cm (0.6 - 1.1) LVIDd: 5.3 cm (3.9 - 5.3) LVPWd: 1.1 cm (0.6 - 1.1) IVSs: 1.7 cm LVIDs: 3.3 cm LVPWs: 1.8 cm LA Diam: 3.3 cm (2.7 - 3.8) LAESV Index (A-L): 19.57 ml/m Ao Diam: 3.3 cm (2.0 - 3.7) AV Cusp: 2.5 cm (1.5 - 2.6) MV EXCURSION: 18.378 mm (> 18.000) MV EF SLOPE: 94 mm/s (70 - 150) EPSS: 1.0 cm MV E Brenden: 0.89 m/s MV DecT: 179 ms MV A Brenden: 0.77 m/s MV E/A Ratio: 1.15 FINDINGS -------- Sinus rhythm. This was a technically good study. The left ventricular size is normal. There is mild concentric left ventricular hypertrophy. Overa ll left ventricular systolic function is normal with, an EF between 60 - 65 %. The right ventricle is normal in size and function. Normal LA size by volume 22+/-6 ml/m2. The right atrium is normal in size. Interatrial and interventricular septum intact. The aortic valve is trileaflet and appears structurally normal. There is trace to mild mitral regurgitation. Trace tricuspid regurgitation present. There is no pulmonic regurgitation present. The aortic root size is normal. Normal inferior vena cava with normal inspiratory collapse consistent with estimated right atrial pre ssure of 5 mmHg. There is no pericardial effusion. CONCLUSIONS -------- 1. Sinus rhythm. 2. This was a technically good study. 3. The left ventricular size is normal. 4. There is mild concentric left ventricular hypertrophy. 5. Overall left ventricular systolic function is normal with, an EF between 60 - 65 %. 6. The right ventricle is normal in size and function. 7. Normal LA size by volume 22+/-6 ml/m2. 8. The right atrium is normal in size. 9. Interatrial and interventricular septum intact. 10. The aortic valve is trileaflet and appears structurally normal. 11. There is trace to mild mitral regurgitation. 12. Trace tricuspid regurgitation present. 13. There is no pulmonic regurgitation present. 14. The aortic root size is normal. 15. Normal inferior vena cava with normal inspiratory collapse consistent with estimated right atrial pressure of 5 mmHg. 16. There is no pericardial effusion. HOSPITALITY DIRECTOR: ELSY Harvey
--- NOTE | 2019-10-22 15:52 | P.CRDCN ---
History of Present Illness Consult date: 10/22/19 History of present illness: This is a 34-year-old female who delivered her third child about 3 weeks ago. Apparently about 2 weeks ago patient came to the emergency room with headache and was diagnosed to have post echo and serial. She was treated with Procardia and was sent home. She was subsequently seen by primary care physician who changed to Procardia to Toprol-XL. Patient has been doing well until this morning. When she went to the kitchen and was standing there, suddenly cyst felt dizzy and sweaty and also developed some left arm discomfort. This lasted about several minutes. Patient came to the emergency room. She did not have any chest pain. Did not complain of any palpitations. Her EKG showed sinus rhythm without acute changes. However cardiac enzymes showed a troponin value 0.22. Patient is a d-dimer was mildly high. Computed tomography scan of the chest was negative for pulmonary emboli or dissection. There doesn't seem to be any calcification of the coronary arteries. At the time of my examination, patient is completely asymptomatic. She wants to go home to take care of her baby. Bedside echo cardiogram did not reveal any evidence of wall motion of normalities and showed preserved LV function. I suggest that we do serial troponin values to see if the trend is consistent with acute coronary syndrome. Patient is also being evaluated by MRI of the brain. She doesn't have any hypercholesterolemia or smoking history. She does have gestational diabetes. No family history of ischemic heart disease Review of Systems As per the chart Past Medical History Past Medical History: Asthma, Hypertension Additional Past Medical History / Comment(s): Gestational diabetes, one week History of Any Multi-Drug Resistant Organisms: None Reported Past Surgical History: Adenoidectomy, Tonsillectomy Additional Past Surgical History / Comment(s): wisdom teeth extraction Past Anesthesia/Blood Transfusion Reactions: No Reported Reaction Past Psychological History: Anxiety, Depression Smoking Status: Never smoker Past Alcohol Use History: None Reported Past Drug Use History: None Reported - Past Family History Mother Family Medical History: Diabetes Mellitus Medications and Allergies Home Medications Medication Instructions Recorded Confirmed Type metFORMIN HCL 1,000 mg PO BID 07/29/19 10/22/19 History Pnv No.95/Ferrous Fum/Folic AC 1 tab PO DAILY 09/27/19 10/22/19 History [ Multivitamin Tablet] Albuterol Nebulized [Ventolin 2.5 mg INHALATION RT-QID PRN 10/06/19 10/22/19 History Nebulized] Doxylamine Succinate [Unisom] 25 mg PO HS 10/06/19 10/22/19 History Vitamin B-6(Unknown Dose) 1 tab PO DAILY 10/06/19 10/22/19 History Acetaminophen Tab [Tylenol Tab] 1,000 mg PO Q6HR PRN 10/22/19 10/22/19 History Metoprolol Succinate (ER) [Toprol 100 mg PO DAILY 10/22/19 10/22/19 History Xl] NIFEdipine XL [Procardia XL] 60 mg PO DAILY 10/22/19 10/22/19 History Allergies Allergy/AdvReac Type Severity Reaction Status Date / Time sulfamethoxazole Allergy Unknown Verified 10/22/19 11:56 [From Bactrim] Childhood trimethoprim [From Bactrim] Allergy Unknown Verified 10/22/19 11:56 Childhood Physical Exam Vitals: Vital Signs Temp Pulse Resp BP Pulse Ox 10/22/19 13:00 71 18 134/97 96 10/22/19 12:30 75 27 H 117/81 100 10/22/19 12:00 70 23 135/90 98 10/22/19 11:30 69 21 126/84 98 10/22/19 10:07 97.4 F L 59 L 18 113/77 100 Intake and Output 10/22/19 10/22/19 10/22/19 06:59 14:59 22:59 Other: Weight 120.202 kg GENERAL EXAM: Patient is alert and oriented and doesn't appear to be in any acute distress HEENT: Normocephalic. Normal reaction of pupils, equal size, normal range of extraocular motion. No erythema or exudates in the throat. NECK: No masses, no nuchal rigidity. CHEST: No chest wall deformity. LUNGS: Equal air entry with no crackles or wheeze. HEART: S1 and S2 normal with no audible mumurs or gallops. Regular rhythm, femorals equal on both sides.. ABDOMEN: No hepatosplenomegaly, normal bowel sounds, no guarding or rigidity. SKIN: No rashes CENTRAL NERVOUS SYSTEM: No focal deficits. EXTREMITIES: No cyanosis, clubbing or edema. Results 10/22/19 11:00 10/22/19 11:00 Cardiac Enzymes 10/22/19 10/22/19 Range/Units 11:00 11:00 AST 33 (14-36) U/L Troponin I 0.223 H* (0.000-0.034) ng/mL Coagulation 10/22/19 Range/Units 11:00 PT 9.6 (9.0-12.0) sec APTT 21.0 L (22.0-30.0) sec CBC 10/22/19 Range/Units 11:00 WBC 7.8 (3.8-10.6) k/uL RBC 4.73 (3.80-5.40) m/uL Hgb 13.6 (11.4-16.0) gm/dL Hct 41.9 (34.0-46.0) % Plt Count 319 (150-450) k/uL Comprehensive Metabolic Panel 10/22/19 Range/Units 11:00 Sodium 138 (137-145) mmol/L Potassium 4.8 (3.5-5.1) mmol/L Chloride 104 (98-107) mmol/L Carbon Dioxide 25 (22-30) mmol/L BUN 17 (7-17) mg/dL Creatinine 1.03 (0.52-1.04) mg/dL Glucose 143 H (74-99) mg/dL Calcium 9.8 (8.4-10.2) mg/dL AST 33 (14-36) U/L ALT 29 (4-34) U/L Alkaline Phosphatase 58 (38-126) U/L Total Protein 7.5 (6.3-8.2) g/dL Albumin 4.8 (3.5-5.0) g/dL Intake and Output 10/22/19 10/22/19 10/22/19 06:59 14:59 22:59 Other: Weight 120.202 kg Patient Weight 10/23/19 06:59 Weight 120.202 kg 10/22/19 11:00 10/22/19 11:00 EKG Interpretations (text) Sinus rhythm Assessment and Plan (1) Left arm pain Current Visit: Yes Status: Acute Code(s): M79.602 - PAIN IN LEFT ARM SNOMED Code(s): 151718627 (2) Gestational hypertension Current Visit: No Status: Acute Code(s): O13.9 - GESTATIONAL HTN W/O SIGNIFICANT PROTEINURIA, UNSP TRIMESTER SNOMED Code(s): 721554717 (3) Preeclampsia in period Current Visit: No Status: Acute Code(s): O14.95 - UNSPECIFIED PRE-ECLAMPSIA, COMPLICATING THE PUERPERIUM SNOMED Code(s): 023938402 (4) Dizziness Current Visit: Yes Status: Acute Code(s): R42 - DIZZINESS AND GIDDINESS SNOMED Code(s): 941047980 (5) Troponin level elevated Current Visit: Yes Status: Acute Code(s): R79.89 - OTHER SPECIFIED ABNORMAL FINDINGS OF BLOOD CHEMISTRY SNOMED Code(s): 283116952 Plan: I recommend that we follows serious of troponin values to assess if it is consistent with acute coronary syndrome. So far her echocardiogram did not reveal any wall motion of normal and his. We'll also check her blood pressure for any postural changes. Continue to monitor for any cardiac arrhythmias. Further recommendations depend upon the clinical course.
--- NOTE | 2019-10-22 17:21 | MR ---
EXAMINATION TYPE: MR brain wo/w con DATE OF EXAM: 10/22/2019 COMPARISON: CT brain 10/07/2019 HISTORY: Lightheaded, lt arm shooting pain CONTRAST: Performed utilizing 12.5 mL intravenous Gadavist gadolinium contrast. TECHNIQUE: Multiplanar, multiecho imaging on a 3.0 Antonella magnet is performed through the brain. Stud y is performed within 24 hours of arrival to the hospital. The craniovertebral junction is normal. The pituitary is normal. Diffusion-weighted imaging is performed. No abnormal hyperintensity is present to suggest an acute i ntracranial infarct or acute ischemic change. Signal through the brain appears normal. There is preservation of the gregg-white matter differentiati on. Ventricles and sulci are appropriate for the patient age. No abnormal enhancement is evident. IMPRESSIONS: 1. Normal pre and postcontrast MRI brain
--- NOTE | 2019-10-22 17:23 | MR ---
EXAMINATION TYPE: MR venography head w con DATE OF EXAM: 10/22/2019 COMPARISON: MRI brain 10/22/2019 HISTORY: Lightheaded, lt arm shooting pain CONTRAST: Performed utilizing 12.5 mL intravenous Gadavist gadolinium contrast. TECHNIQUE: Multiplanar, multiecho imaging on a 3.0 Antonella magnet is performed through the brain. Stud y is performed within 24 hours of arrival to the hospital. 3-D imaging postcontrast was performed through the venous structures of the brain. Sagittal sinus appears patent without filling defects are evident. Straight sinus is normal. Sigmoid sinus and jugular veins appear normal. Intracranial veins reconstructed on these images appear normal . No suspicious filling defects are evident. No venous infarcts were evident within the brain. IMPRESSIONS: 1. Normal MRV brain
[2019-10-22] MEDS ORDERED: NITROGLYCERIN SL TABS 0.4 MG TAB SUBLINGUAL PRN (18:28)
[2019-10-22] MEDS ORDERED: HEPARIN SODIUM,PORCINE 5,000 UNIT/ML 1 ML VIAL IV ONE (18:42)
[2019-10-22] MEDS: HEPARIN SOD,PORK IN 0.45% NACL 25,000 UNIT in 0.45% NACL 1 250ML.BAG IV SCH (19:05)
[2019-10-22] MEDS ORDERED: ACETAMINOPHEN TAB 500 MG TAB PO PRN (20:26)
[2019-10-22] MEDS ORDERED: ALBUTEROL NEBULIZED 2.5 MG/3 ML INHALATION PRN (20:26)
[2019-10-22] MEDS ORDERED: HYDROcodone/APAP 5-325MG 1 EACH TAB PO PRN (20:27)
[2019-10-22] MEDS ORDERED: ALPRAZolam 0.25 MG TAB PO PRN (20:27)
--- NOTE | 2019-10-22 20:37 | US ---
EXAMINATION TYPE: US carotid duplex BILAT DATE OF EXAM: 10/22/2019 COMPARISON: NONE CLINICAL HISTORY: pain, r/o thrombus. possible VA, h/o post pre-eclampsia, post 23 days, left arm shooting pain, no h/o stroke EXAM MEASUREMENTS: RIGHT: Peak Systolic Velocity (PSV) cm/sec ----- Right CCA: 71.2 ----- Right ICA: 86.6 ----- Right ECA: 76.2 ICA/CCA ratio: 1.2 RIGHT: End Diastole cm/sec ----- Right CCA: 25.8 ----- Right ICA: 45.6 ----- Right ECA: 14.2 LEFT: Peak Systolic Velocity (PSV) cm/sec ----- Left CCA: 75.3 ----- Left ICA: 78.8 ----- Left ECA: 59.6 ICA/CCA ratio: 1.0 LEFT: End Diastole cm/sec ----- Left CCA: 24.7 ----- Left ICA: 44.8 ----- Left ECA: 16.0 VERTEBRALS (direction of flow): Right Vertebral: Antegrade Left Vertebral: Antegrade Rhythm: Normal Mild homogenous plaque with no stenosis seen, color flow imaging of IJV appeared normal bilaterally IMPRESSION: 1. Carotid Doppler ultrasound is unremarkable as visualized Criteria for Assigning % of Stenosis / Diameter reduction (Estimation based on the indirect measurements of the internal carotid artery velocities (ICA PSV). 1. Normal (no stenosis)=ICA PSV < 125 cm/s: ratio < 2.0: ICA EDV<40 cm/s. 2. Less than 50% stenosis=ICA PSV < 125 cm/s: ratio < 2.0: ICA EDV<40 cm/s. 3. 50 to 69% stenosis=ICA PSV of 125 to 230 cm/s: ration 2.0 ? 4.0: ICA EDV 40-100 cm/s. 4. Greater than 70% stenosis to near occlusion= ICA PSV > 230 cm/s: ratio > 4.0: ICA EDV > 100 cm/s. 5. Near occlusion= ICA PSV velocities may be low or undetectable: variable ratio and ICA EDV. 6. Total occlusion=unable to detect flow.
[2019-10-22] MEDS ORDERED: NON FORMULARY DRUG (Doxylamine Succinate [Unisom] 25 MG) PO SCH (21:00)
--- NOTE | 2019-10-22 23:04 | HP ---
HISTORY AND PHYSICAL DATE OF SERVICE: 10/22/2019 CHIEF COMPLAINT: Lightheadedness and as well as aching pain of the left arm. HISTORY OF PRESENT ILLNESS: This 34-year-old woman with a past medical history of multiple medical problems including asthma, hypertension, history of gestational diabetes, history of preeclampsia, anxiety, depression, being followed by Dr. Vesna Whelan in the outpatient setting, recently had a baby and the patient had eclampsia during that admission apparently. The patient was treated with magnesium sulfate and other medications. The blood pressure was controlled and the patient went home. Today the patient woke up this morning without any issues, but started to wash dishes and felt sudden onset of lightheadedness and nausea and feeling clammy and patient also had some left upper arm numbness and achy pain also. The patient came to [facility] and was admitted for further evaluation and treatment. The multiple evaluations showed EKG showed some T inversions in V1. Otherwise, no other acute changes are noted. The patient also had D-dimer elevated to 0.7 and no evidence of pulmonary embolism. Glucose 143. Troponin elevated to 0.223 and 0.70. Cardiology is consulted and cardiology is evaluating the patient. There is no history of fever, rigors No history of headache, loss of consciousness or headache. The patient also had multiple other workup including the head and brain MRV which showed normal findings. The patient also had a brain MRI which showed again normal pre and post-contrast MRI of the brain. The chest CTA was also done as mentioned earlier, which showed ascending thoracic aortic aneurysm 4.3 cm. No acute findings are noted. A 2D echo by Cardiology showed ejection fraction about 60- 65%. No wall motion abnormalities. PAST MEDICAL HISTORY: History of recent delivery, history of asthma, hypertension, history of gestational diabetes, anxiety, depression. HOME MEDICATIONS: 1. Metformin 1000 mg p.o. b.i.d. 2. Vitamin B6. 3. vitamin. 4. ( ) XL 60 mg p.o. daily. 5. Toprol-XL 100 mg. 6. Unasyn 25 mg p.o. daily. 7. Ventolin 2.5. 8. Tylenol p.r.n. ALLERGIES: BACTRIM. FAMILY HISTORY: History of diabetes in the family. SOCIAL HISTORY: No history of smoking. No alcohol intake. REVIEW OF SYSTEMS: ENT: No diminished vision, no diminished hearing. CARDIOVASCULAR SYSTEM: As mentioned earlier. RESPIRATORY: As mentioned earlier. GI: No nausea. : No dysuria. NERVOUS SYSTEM: No numbness or weakness. ALLERGY: No asthma or hayfever. MUSCULOSKELETAL: As mentioned earlier. HEMATOLOGY: No anemia. ENDOCRINE: No history of diabetes or hypothyroidism. CONSTITUTIONAL: As mentioned earlier. PSYCHIATRY: As mentioned earlier. PHYSICAL EXAM: Patient is alert, oriented x3. Pulse 75, blood pressure 140/96, respiration 18, temp is normal, pulse ox 98% on room air. HEENT: Conjunctivae normal. Oral mucosa moist. NECK: No jugular venous distention. No lymph node enlargement. CARDIOVASCULAR: S1, S2. RESPIRATORY: Diminished breath sounds at the bases. No rhonchi, no crackles. ABDOMEN: Soft, obese, nontender. No mass palpable. LEGS: No edema, no swelling. NERVOUS SYSTEM: Higher functions mentioned earlier. Moves all four limbs. No focal deficits. LYMPHATICS: No lymph node in neck or axilla. SKIN: No rash. JOINTS: No active deforming arthropathy. LABS: CBC within normal. D-dimer is 0.79, glucose 143. Troponins are noted. ASSESSMENT: 1. Lightheadedness, dizziness and left arm achiness. Rule out acute [id number]- elevation myocardial infarction. 2. Troponin 0.223 and 0.790. 3. Elevated glucose, possible diabetes type 2. 4. History of gestational diabetes type 2. 5. History of asthma. 6. Hypertension. 7. History of and as well as preeclampsia. 8. Anxiety, depression. 9. Obesity with body mass index 44.1. RECOMMENDATIONS AND DISCUSSION: This 34-year-old woman who presented with multiple complex medical issues, we will monitor the patient closely, continue the current medication, continue symptomatic treatment. Otherwise, recommend unstable angina protocol, antiplatelet agents and follow closely with Cardiology. 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 The overall prognosis is guarded because of multiple complex medical issues as mentioned earlier. MRI and MRV are normal. However, I will continue to monitor. Discussed with the patient who understands. MMODL / IJN: [id number] /
[2019-10-23 00:56] LABS: C Reactive Protein 8.4 mg/L (<10.0)
[2019-10-23] MEDS: HEPARIN SODIUM,PORCINE 5,000 UNIT/ML 1 ML VIAL IV PRN ×2 (01:52→09:37)
[2019-10-23] MEDS: PANTOPRAZOLE 40 MG/10 ML VIAL IVP SCH ×2 (01:53→09:36)
[2019-10-23 02:26] LABS: Appearance,Urine Clear (Clear); Bacteria,Urine Rare /hpf; Bilirubin,Urine Negative (Negative); Blood,Urine Moderate (Negative); Color,Urine Yellow; Glucose,Urine (UA) Negative (Negative); Ketones,Urine 2+ (Negative); Leukocyte Esterase,Urine Moderate (Negative); Mucus,Urine Few /hpf; Nitrite,Urine Negative (Negative); PH, Urine 5.5 (5.0-8.0); Protein,Urine Trace (Negative); RBC,Urine 1 /hpf (0-5); Specific Gravity,Urine 1.037 (1.001-1.035); Squamous Epithelial Cell,Urine 4 /hpf (0-4); Urobilinogen,Urine <2.0 mg/dL (<2.0); WBC,Urine 10 /hpf (0-5)
[2019-10-23 02:30] LABS: Amphetamine Screen,Urine Not Detected (NotDetected); Barbiturate Screen,Urine Not Detected (NotDetected); Benzodiazepines Screen,Urine Not Detected (NotDetected); Cocaine Screen,Urine Not Detected (NotDetected); Methadone Screen, Urine Not Detected (NotDetected); Opiate Screen,Urine Not Detected (NotDetected); Oxycodone Screen, Urine Not Detected (NotDetected); Phencyclidine Screen,Urine Not Detected (NotDetected); Tricyclic Antidepressant,Urine Not Detected (NotDetected); Urn Cannabinoid Scrn Not Detected (NotDetected)
--- NOTE | 2019-10-23 07:35 | XR ---
EXAMINATION TYPE: XR chest 1V portable DATE OF EXAM: 10/23/2019 Comparison: 10/22/2019 Clinical History: 34-year-old female CHF Findings: Heart size is accentuated by AP portable technique. Aorta and pulmonary vasculature are within normal limits. Lungs and pleural spaces are clear. Impression: No acute cardiopulmonary process.
[2019-10-23 07:51] LABS: Basophils % (A) 1 %; Eosinophils # (A) 0.1 k/uL (0-0.7); Eosinophils % (A) 2 %; HCT 41.1 % (34.0-46.0); HGB 13.5 gm/dL (11.4-16.0); Lymphocytes # (A) 1.9 k/uL (1.0-4.8); Lymphocytes % (A) 37 %; MCH 29.7 pg (25.0-35.0); MCHC 32.8 g/dL (31.0-37.0); MCV 90.7 fL (80.0-100.0); Mean Platelet Volume 8.5; Monocytes # (A) 0.3 k/uL (0-1.0); Monocytes % (A) 6 %; Neutrophils # (A) 2.8 k/uL (1.3-7.7); Neutrophils % (A) 53 %; Platelet Count 309 k/uL (150-450); RBC 4.53 m/uL (3.80-5.40); RDW 12.4 % (11.5-15.5); WBC 5.2 k/uL (3.8-10.6)
[2019-10-23 07:55] LABS: INR 0.9 (<1.2); Partial Thromboplastin Time 42.8 sec (22.0-30.0); Prothrombin Time 9.9 sec (9.0-12.0)
[2019-10-23 08:05] LABS: African American GFR (CKD) >90 (>60 ml/min/1.73 sqM); Anion Gap 10 mmol/L; Blood Urea Nitrogen 16 mg/dL (7-17); Calcium 9.1 mg/dL (8.4-10.2); Carbon Dioxide 24 mmol/L (22-30); Chloride 106 mmol/L (98-107); Cholesterol 216 mg/dL (<200); Glucose 96 mg/dL (74-99); HDL Cholesterol 49 mg/dL (40-60); LDL Cholesterol,Calculated 134 mg/dL (0-99); Non-African American GFR(CKD) 81 (>60 ml/min/1.73 sqM); Sodium 140 mmol/L (137-145); Triglycerides 165 mg/dL (<150)
--- NOTE | 2019-10-23 08:51 | P.GSCN ---
History of Present Illness Consult date: 10/23/19 Reason for Consult: Thoracic aneurysm Requesting physician: Adilson May History of present illness: This is a 34-year-old active female patient who is 3 weeks who follows on an outpatient basis with Dr. Vesna Whelan. She has a previous medical history of hypertension, asthma, gestational diabetes. Apparently yesterday she was in her kitchen doing dishes when she had a sudden episode of lightheadedness, dizziness, nausea, feeling clammy, with excruciating pain in her left arm. She denied any shortness of breath or emesis. She also denied ever experiencing anything like this before. The lightheaded and dizziness feeling went away quickly, however after an hour of excruciating pain in her left arm she presented to [facility] emergency room. Chest x-ray was completed which demonstrated no acute process. Echocardiogram was completed demonstrating normal left ventricular function with EF 60-65%, 3 leaflet aortic valve, trace to mild mitral regurgitation, trace tricuspid regurgitation, and normal aortic root without enlargement. A chest CTA was also completed with no findings consistent with pulmonary embolism, however there was noted a 4.3 cm enlargement of the ascending aorta at the level of the main pulmonary artery without any evidence of dissection. Due to this finding cardiothoracic surgery was consulted for surgical recommendations. Of note the patient also had carotid Dopplers, and brain MRI which were normal. The patient did have elevation in her troponins, she was placed on a heparin drip, and cardiology was consulted for recommendations. Review of Systems Review of systems was completed and was negative except as noted in the HPI Past Medical History Past Medical History: Asthma, Hypertension Additional Past Medical History / Comment(s): Gestational diabetes, three weeks History of Any Multi-Drug Resistant Organisms: None Reported Past Surgical History: Adenoidectomy, Tonsillectomy Additional Past Surgical History / Comment(s): wisdom teeth extraction Past Anesthesia/Blood Transfusion Reactions: No Reported Reaction Past Psychological History: Anxiety, Depression Additional Psychological History / Comment(s): Hx depression Smoking Status: Never smoker Past Alcohol Use History: None Reported Past Drug Use History: None Reported - Past Family History Mother Family Medical History: Diabetes Mellitus, Hypertension Medications and Allergies Home Medications Medication Instructions Recorded Confirmed Type metFORMIN HCL 1,000 mg PO BID 07/29/19 10/22/19 History Pnv No.95/Ferrous Fum/Folic AC 1 tab PO DAILY 09/27/19 10/22/19 History [ Multivitamin Tablet] Albuterol Nebulized [Ventolin 2.5 mg INHALATION RT-QID PRN 10/06/19 10/22/19 History Nebulized] Doxylamine Succinate [Unisom] 25 mg PO HS 10/06/19 10/22/19 History Vitamin B-6(Unknown Dose) 1 tab PO DAILY 10/06/19 10/22/19 History Acetaminophen Tab [Tylenol Tab] 1,000 mg PO Q6HR PRN 10/22/19 10/22/19 History Metoprolol Succinate (ER) [Toprol 100 mg PO DAILY 10/22/19 10/22/19 History Xl] NIFEdipine XL [Procardia XL] 60 mg PO DAILY 10/22/19 10/22/19 History Allergies Allergy/AdvReac Type Severity Reaction Status Date / Time sulfamethoxazole Allergy Unknown Verified 10/22/19 11:56 [From Bactrim] Childhood trimethoprim [From Bactrim] Allergy Unknown Verified 10/22/19 11:56 Childhood Surgical - Exam Vital Signs Temp Pulse Resp BP Pulse Ox 97.4 F L 59 L 18 113/77 100 10/22/19 10:07 10/22/19 10:07 10/22/19 10:07 10/22/19 10:07 10/22/19 10:07 - General well developed, well nourished, no distress, no pain, obese - Eyes PERRL, normal ocular movement - ENT no hearing loss, no congestion - Neck no masses, no bruits, trachea midline - Respiratory Lungs sounds clear bilaterally. Respirations even, nonlabored. Currently on room air with oxygen saturation 98%. No chest wall deformities. No clubbing or cyanosis present. - Cardiovascular S1, S2 present. Regular rate and rhythm, sinus rhythm on telemetry. Palpable peripheral pulses bilaterally. No edema present. No calf pain or tenderness noted. - Abdomen Abdomen: soft, non tender, bowel sounds - Genitourinary Deferred - Rectum Deferred - Integumentary no rash, no growths - Neurologic normal coordination, normal sensation - Musculoskeletal normal gait, normal posture - Psychiatric Patient is a bit teary-eyed, very anxious oriented to time, oriented to person, oriented to place, speech is normal, memory intact Results - Labs 10/23/19 06:58 10/23/19 06:58 Abnormal Lab Results - Last 24 Hours (Table) 10/22/19 10/22/19 10/22/19 Range/Units 11:00 11:00 11:00 APTT 21.0 L (22.0-30.0) sec D-Dimer (<0.60) mg/L FEU Glucose 143 H (74-99) mg/dL Troponin I 0.223 H* (0.000-0.034) ng/mL Ur Specific [place] (1.001-1.035) Urine Protein (Negative) Urine Ketones (Negative) Urine Blood (Negative) Ur Leukocyte Esterase (Negative) Urine WBC (0-5) /hpf Urine Bacteria (None) /hpf Urine Mucus (None) /hpf 10/22/19 10/22/19 10/23/19 Range/Units 11:00 17:38 00:00 APTT (22.0-30.0) sec D-Dimer 0.79 H (<0.60) mg/L FEU Glucose (74-99) mg/dL Troponin I 0.790 H* 3.210 H* (0.000-0.034) ng/mL Ur Specific [place] (1.001-1.035) Urine Protein (Negative) Urine Ketones (Negative) Urine Blood (Negative) Ur Leukocyte Esterase (Negative) Urine WBC (0-5) /hpf Urine Bacteria (None) /hpf Urine Mucus (None) /hpf 10/23/19 10/23/19 10/23/19 Range/Units 00:00 02:10 06:58 APTT 31.0 H 42.8 H (22.0-30.0) sec D-Dimer (<0.60) mg/L FEU Glucose (74-99) mg/dL Troponin I (0.000-0.034) ng/mL Ur Specific [place] 1.037 H (1.001-1.035) Urine Protein Trace H (Negative) Urine Ketones 2+ H (Negative) Urine Blood Moderate H (Negative) Ur Leukocyte Esterase Moderate H (Negative) Urine WBC 10 H (0-5) /hpf Urine Bacteria Rare H (None) /hpf Urine Mucus Few H (None) /hpf Diabetes panel 10/22/19 Range/Units 11:00 Sodium 138 (137-145) mmol/L Potassium 4.8 (3.5-5.1) mmol/L Chloride 104 (98-107) mmol/L Carbon Dioxide 25 (22-30) mmol/L BUN 17 (7-17) mg/dL Creatinine 1.03 (0.52-1.04) mg/dL Glucose 143 H (74-99) mg/dL Calcium 9.8 (8.4-10.2) mg/dL AST 33 (14-36) U/L ALT 29 (4-34) U/L Alkaline Phosphatase 58 (38-126) U/L Total Protein 7.5 (6.3-8.2) g/dL Albumin 4.8 (3.5-5.0) g/dL Calcium panel 10/22/19 Range/Units 11:00 Calcium 9.8 (8.4-10.2) mg/dL Albumin 4.8 (3.5-5.0) g/dL Pituitary panel 10/22/19 Range/Units 11:00 Sodium 138 (137-145) mmol/L Potassium 4.8 (3.5-5.1) mmol/L Chloride 104 (98-107) mmol/L Carbon Dioxide 25 (22-30) mmol/L BUN 17 (7-17) mg/dL Creatinine 1.03 (0.52-1.04) mg/dL Glucose 143 H (74-99) mg/dL Calcium 9.8 (8.4-10.2) mg/dL Adrenal panel 10/22/19 Range/Units 11:00 Sodium 138 (137-145) mmol/L Potassium 4.8 (3.5-5.1) mmol/L Chloride 104 (98-107) mmol/L Carbon Dioxide 25 (22-30) mmol/L BUN 17 (7-17) mg/dL Creatinine 1.03 (0.52-1.04) mg/dL Glucose 143 H (74-99) mg/dL Calcium 9.8 (8.4-10.2) mg/dL Total Bilirubin 1.0 (0.2-1.3) mg/dL AST 33 (14-36) U/L ALT 29 (4-34) U/L Alkaline Phosphatase 58 (38-126) U/L Total Protein 7.5 (6.3-8.2) g/dL Albumin 4.8 (3.5-5.0) g/dL - Imaging Chest x-ray: report reviewed, image reviewed CT scan - chest: report reviewed, image reviewed EKG: image reviewed Assessment and Plan Assessment: 1. 4.3 cm ascending aortic aneurysm at the level of the main pulmonary artery, no evidence of dissection 2. Hypertension 3. Troponin elevation 4. Asthma 5. 3 weeks 6. Gestational diabetes Plan: The patient was seen and examined at the bedside. Chart/diagnostics were revie wed. The case will be discussed in detail with Dr. Vale. Patient is asymptomatic, there is no evidence of dissection, aortic valve is noted to be trileaflet and the aortic root is normal. No surgical intervention is warranted at this time. We recommended good blood pressure control with beta blockers. Follow-up computed tomography scan of the chest in 6 months to evaluate for increasing size of the aortic aneurysm. Continue medical management of other comorbidities per primary care service, cardiology. Thank you for this consult. Please contact us with any further questions. Time with Patient: Greater than 30
[2019-10-23] MEDS: PYRIDOXINE 50 MG TAB PO SCH (09:36)
[2019-10-23] MEDS: METOPROLOL SUCCINATE (ER) 100 MG TAB.ER.24H PO SCH (09:36)
[2019-10-23] MEDS ORDERED: ASPIRIN 325 MG TAB PO STA (10:04)
[2019-10-23] MEDS ORDERED: NITROGLYCERIN SL TABS 0.4 MG TAB SUBLINGUAL PRN ×2 (10:04→13:30)
[2019-10-23] MEDS ORDERED: ALPRAZolam 0.5 MG TAB PO PRN (10:04)
[2019-10-23] MEDS ORDERED: SODIUM CHLORIDE 0.9% 1,000 ML in EMPTY BAG 1 BAG IV ONE (10:04)
[2019-10-23] MEDS ORDERED: ALPRAZolam 0.25 MG TAB PO PRN (10:04)
[2019-10-23] MEDS ORDERED: ATORVASTATIN 80 MG TAB PO STA (10:04)
[2019-10-23] MEDS ORDERED: LIDOCAINE 1% INJ 10MG/ML (20 ML MDV) ONE ×2 (11:25→11:40)
[2019-10-23] MEDS ORDERED: fentaNYL (PF) 50 MCG/ML 2 ML AMP ONE (11:30)
--- NOTE | 2019-10-23 11:31 | P.PN ---
Subjective Progress Note Date: 10/23/19 This is a pleasant 34-year-old female who delivered her third child about 3 weeks ago, about 2 weeks ago the patient came to the emergency room with complaints of headache, and was found to be hypertensive, she was initiated on Procardia and sent home. Subsequently she was seen by her primary care doctor who changed to Procardia over to Toprol-XL. She presented to the hospital on this occasion with symptoms of an episode of dizziness with diaphoresis as well as some left arm discomfort which lasted several minutes. She denied any discomfort in her chest. Her initial EKG on presentation here showed a normal sinus rhythm with nonspecific ST-T wave changes in the inferior leads. Carotid Doppler study was normal. Chest x-ray on presentation here did not reveal any acute pulmonary process. An echocardiogram with Doppler study was performed which revealed an ejection fraction of 60-65%. CTA of the chest was performed which showed an ascending thoracic aortic aneurysm of 4.3 cm in its of pulmonary embolism. Chest x-ray did not show any acute cardiopulmonary process. Blood pressure here has been stable, 120/80 with a heart rate in the 70s, 98% on room air. No orthostatics were documented when they were evaluated. White blood cell count this morning 5.2, hemoglobin 13.5, platelet count 309. Sodium 140, potassium 4. BUN 16, creatinine 0.9. Troponins 0.2-3, 0.79, 3.2, 3.2. Cholesterol 216, LDL 134, triglycerides 165, HDL 49. Influenza A and B were negative. Objective - Vital Signs Vital signs: Vital Signs Temp 97.9 F 10/23/19 10:05 Pulse 79 10/23/19 10:05 Resp 16 10/23/19 10:05 BP 128/81 10/23/19 10:05 Pulse Ox 98 10/23/19 10:05 Intake & Output 10/22/19 10/23/19 10/23/19 18:59 06:59 18:59 Intake Total 269.256 123.731 Balance 269.256 123.731 Weight 120.202 kg 117 kg Intake: Intake, IV Titration 69.256 123.731 Amount Heparin Sod,Pork in 0.45% 69.256 103.731 NaCl 25,000 unit In 0.45 % NaCl 1 250ml.bag @ 8.33 UNITS/KG/HR 10.013 mls/ hr IV .Q24H [facility] Rx#: [id number] Sodium Chloride 0.9% 1, 20 000 ml In Empty Bag 1 bag @ 1 ML/KG/HR 117 mls/hr IV .[id number] ONE Rx#: [id number] Oral 200 - Exam GENERAL EXAM: Patient is alert and oriented and doesn't appear to be in any acute distress HEENT: Normocephalic. Normal reaction of pupils, equal size, normal range of extraocular motion. No erythema or exudates in the throat. NECK: No masses, no nuchal rigidity. CHEST: No chest wall deformity. LUNGS: Equal air entry with no crackles or wheeze. HEART: S1 and S2 normal with no audible mumurs or gallops. Regular rhythm, f emorals equal on both sides.. ABDOMEN: No hepatosplenomegaly, normal bowel sounds, no guarding or rigidity. SKIN: No rashes CENTRAL NERVOUS SYSTEM: No focal deficits. EXTREMITIES: No cyanosis, clubbing or edema - Labs CBC & Chem 7: 10/23/19 06:58 10/23/19 06:58 Labs: Abnormal Lab Results - Last 24 Hours (Table) 10/22/19 10/22/19 10/22/19 Range/Units 11:00 11:00 11:00 APTT 21.0 L (22.0-30.0) sec D-Dimer (<0.60) mg/L FEU Glucose 143 H (74-99) mg/dL Troponin I 0.223 H* (0.000-0.034) ng/mL Triglycerides (<150) mg/dL Cholesterol (<200) mg/dL LDL Cholesterol, Calc (0-99) mg/dL Ur Specific [place] (1.001-1.035) Urine Protein (Negative) Urine Ketones (Negative) Urine Blood (Negative) Ur Leukocyte Esterase (Negative) Urine WBC (0-5) /hpf Urine Bacteria (None) /hpf Urine Mucus (None) /hpf 10/22/19 10/22/19 10/23/19 Range/Units 11:00 17:38 00:00 APTT (22.0-30.0) sec D-Dimer 0.79 H (<0.60) mg/L FEU Glucose (74-99) mg/dL Troponin I 0.790 H* 3.210 H* (0.000-0.034) ng/mL Triglycerides (<150) mg/dL Cholesterol (<200) mg/dL LDL Cholesterol, Calc (0-99) mg/dL Ur Specific [place] (1.001-1.035) Urine Protein (Negative) Urine Ketones (Negative) Urine Blood (Negative) Ur Leukocyte Esterase (Negative) Urine WBC (0-5) /hpf Urine Bacteria (None) /hpf Urine Mucus (None) /hpf 10/23/19 10/23/19 10/23/19 Range/Units 00:00 02:10 06:58 APTT 31.0 H (22.0-30.0) sec D-Dimer (<0.60) mg/L FEU Glucose (74-99) mg/dL Troponin I (0.000-0.034) ng/mL Triglycerides 165 H (<150) mg/dL Cholesterol 216 H (<200) mg/dL LDL Cholesterol, Calc 134 H (0-99) mg/dL Ur Specific [place] 1.037 H (1.001-1.035) Urine Protein Trace H (Negative) Urine Ketones 2+ H (Negative) Urine Blood Moderate H (Negative) Ur Leukocyte Esterase Moderate H (Negative) Urine WBC 10 H (0-5) /hpf Urine Bacteria Rare H (None) /hpf Urine Mucus Few H (None) /hpf 10/23/19 10/23/19 Range/Units 06:58 06:58 APTT 42.8 H (22.0-30.0) sec D-Dimer (<0.60) mg/L FEU Glucose (74-99) mg/dL Troponin I 3.270 H* (0.000-0.034) ng/mL Triglycerides (<150) mg/dL Cholesterol (<200) mg/dL LDL Cholesterol, Calc (0-99) mg/dL Ur Specific [place] (1.001-1.035) Urine Protein (Negative) Urine Ketones (Negative) Urine Blood (Negative) Ur Leukocyte Esterase (Negative) Urine WBC (0-5) /hpf Urine Bacteria (None) /hpf Urine Mucus (None) /hpf Assessment and Plan Plan: Assessment and plan #1 left arm pain, EKGs show normal sinus rhythm with nonspecific changes in the inferior leads, troponins up to 3.2, cannot completely rule out acute coronary syndrome #2 gestational hypertension #3 preeclampsia in the period #4 diabetes gestational #5 dizziness, orthostatics have been negative Plan CT of the chest did show an ascending thoracic aortic aneurysm of 4.3 cm, no pulmonary embolism. Because of the abnormality in troponin along with the patient symptoms of arm discomfort, she was advised to undergo cardiac catheterization, the risks and benefits were explained to the patient in detail and she is willing to proceed. This will be performed today by Dr. Bullard and further recommendations will be made following this procedure. DNP note has been reviewed, I agree with a documented findings and plan of care. Patient was seen and examined.
[2019-10-23] MEDS ORDERED: fentaNYL (PF) 50 MCG/ML 2 ML AMP IVP ONE (11:33)
[2019-10-23] MEDS ORDERED: LIDOCAINE 1% INJ 10MG/ML (20 ML MDV) SQ ONE (11:33)
[2019-10-23] MEDS ORDERED: MIDAZOLAM 2 MG/2 ML VIAL IVP ONE ×2 (11:33→12:32)
[2019-10-23] MEDS ORDERED: IV FLUID CONTINUATION 1,000 ML IV ONE (11:39)
[2019-10-23] MEDS ORDERED: IOPAMIDOL-370 50ML BTL INJ ONE (11:54)
--- NOTE | 2019-10-23 12:11 | P.CARDCATH ---
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 Her troponin showed elevation consistent with acute coronary syndrome. EKG did not reveal any acute changes. Echocardiogram did not: Deferred wall motion normalities. However because of abnormal cardiac enzymes sized for non-STEMI, patient is advised to have a cardiac catheterization for definitive diagnosis. CONSENT:I have discussed the risks, benefits and alternative therapies for the above-mentioned procedure and for both sedation/analgesia as well as necessary blood product administration, if indicated, as they pertain to this patient. The patient has indicated understanding and acceptance of the risks and procedures discussed. PROCEDURE: Patient was brought to the lab in a fasting state. Patient was given some IV sedation. The right groin is infiltrated with lidocaine and right femoral artery was entered using Seldinger technique. A 6-Tajik catheter was left in place and selective coronary arteriography and left ventriculography was performed. Patient tolerated the procedure well. No immediate complications were noted . Patient is waiting to have intervention by Dr. Garcia Conscious Sedation: Versed 1mg Fentanyl 50 g Duration 22minutes HEMODYNAMICS: The aortic pressure is 140/70. The left ventricle end-diastolic pressure is about 5-10. There was no gradient across the aortic valve SELECTIVE CORONARY ARTERIOGRAPHY: LEFT MAIN: This is normal length and free of occlusive disease THE LEFT ANTERIOR DESCENDING CORONARY ARTERY:. This is a good caliber vessel giving rise good-sized diagonal and saw small septal branches. The LAD and branches are free of occlusive disease. THE LEFT CIRCUMFLEX AND IS CORONARY ARTERY: This is a moderate caliber vessel giving rise to moderate caliber OM branch. Free of occlusive disease THE RIGHT CORONARY ARTERY: Is a dominant vessel giving rise good-sized PLV and also PDA branches. The PDA branch has 80-90% stenosis in the midportion. Beyond the lesion. It appears is small LEFT VENTRICULOGRAPHY:. This revealed normal-sized cardiac silhouette with hypokinesis of the inferoapical segment with an ejection fraction of about 50% FINAL IMPRESSION: Critical lesion involving the small PDA. Mild hypokinesis of the inferoapical segment PLAN: Dr. Garcia is going to see if he can intervene the lesion in the PDA PROGNOSIS: Guarded
[2019-10-23] MEDS ORDERED: BIVALIRUDIN BOLUS 250 MG/50 ML IV ONE (12:22)
[2019-10-23] MEDS ORDERED: BIVALIRUDIN 250 MG in SODIUM CHLORIDE 0.9% 50 ML IV ONE ×2 (12:23→12:58)
[2019-10-23] MEDS ORDERED: NITROGLYCERIN 1000MCG/10ML SYRINGE INTRACORON ONE ×4 (12:30→13:12)
[2019-10-23] MEDS ORDERED: IOPAMIDOL-370 125ML BTL INJ ONE (12:34)
[2019-10-23] MEDS ORDERED: HYDROmorphone 1 MG/ML 1 ML SYRINGE ONE ×2 (12:42→12:53)
[2019-10-23] MEDS ORDERED: HYDROmorphone 1 MG/ML 1 ML SYRINGE IVP ONE ×2 (12:44→12:58)
[2019-10-23] MEDS ORDERED: PRASUGREL 10 MG TAB ONE (12:53)
[2019-10-23] MEDS ORDERED: PRASUGREL 10 MG TAB PO ONE (13:05)
[2019-10-23] MEDS ORDERED: niCARdipine Syringe (1,000 mcg/10 mL) INTRACORON ONE (13:13)
[2019-10-23] MEDS ORDERED: IOPAMIDOL-370 100ML BTL INJ ONE (13:16)
[2019-10-23] MEDS ORDERED: RX INFO: IV CONTRAST WAS GIVEN 1 EACH MISC MISCELLANE PRN (13:30)
[2019-10-23] MEDS ORDERED: SODIUM CHLORIDE 0.9% 1,000 ML IV SCH (13:30)
[2019-10-23] MEDS ORDERED: MAG HYDROX/AL HYDROX/SIMETH 30 ML CUP PO PRN (13:30)
[2019-10-23] MEDS ORDERED: ATROPINE SULFATE 0.1 MG/ML 10ML SYRINGE IV PRN (13:30)
[2019-10-23] MEDS ORDERED: ZOLPIDEM 5 MG TAB PO PRN (13:30)
[2019-10-23] MEDS: HEPARIN SOD,PORK IN 0.45% NACL 25,000 UNIT in 0.45% NACL 1 250ML.BAG IV SCH (13:37)
[2019-10-23] MEDS ORDERED: HYDROmorphone 1 MG/ML 1 ML SYRINGE IVP PRN ×2 (13:51→13:57)
[2019-10-23] MEDS ORDERED: ISOSORBIDE MONONITRATE ER 30 MG TAB.ER.24H PO STA (13:54)
--- NOTE | 2019-10-23 20:46 | PTCA ---
PERCUTANEOUSTRANS CORORONARY ANGIOGRAPHY DATE OF SERVICE: October 23, 2019 PERFORMING PHYSICIAN: Franc Shelton MD. PROCEDURE PERFORMED: Successful stenting of the PDA branch of the right coronary artery using 2.0 x 15 mm Jose Martin drug-eluting stent with an excellent angiographic results and reduction of stenosis from 90% to 0%. INDICATIONS: This is a 34-year-old female patient with history of gestational diabetes who recently had a baby which was her 3rd child 3 weeks ago, presented to the hospital with left arm discomfort as well as chest discomfort. She was ruled in for acute mmz-KG-rpqoxxjmi myocardial infarction. She underwent a heart catheterization by Dr. Bullard and was found to have critical disease involving the PDA branch of the RCA. The PDA was about 2 mm vessel. The decision was made toward percutaneous coronary intervention. APPROACH: Right common femoral artery. COMPLICATION: None. LEVEL OF SEDATION: Moderate with sedation length of 56 minutes. PROCEDURE DESCRIPTION: Please refer to diagnostic heart catheterization was performed by Dr. Bullard. Initially, I tried to engage the RCA using JR4 guide, but the guide was not seated well and not coaxial and because of that I decided to change into multipurpose catheter. I did engage the RCA using multipurpose guide. I did wire it using a Whisper wire. I did balloon angioplasty using 1.5 mm balloon before I deployed 2.0 x 15 mm Sunny Side drug- eluting stent where the stent was positioned under fluoroscopy guidance and deployed under its nominal pressure. The following angiogram after I pulled the wire out showed an area about 10 mm distal to the stent seems to be hazy and appeared to be diseased in the range of 50% to 60%. I decided to cover the area with a stent so I wired the PDA branch again, but I could not get any stent across the previous stent. Because of that, I decided to stop. The procedure was completed without any complication. POSTPROCEDURE MANAGEMENT: 1. Dual anti-platelet therapy. 2. Risk factors modifications. 3. Follow up with the patient. MMODL / IJN: [id number] /
[2019-10-23] MEDS ORDERED: ATORVASTATIN 80 MG TAB PO SCH (21:00)
--- NOTE | 2019-10-23 22:28 | PN ---
PROGRESS NOTE DATE OF SERVICE: 10/23/2019 This 34-year-old woman was admitted with acute pqj-HO-xqriewc-elevation myocardial infarction, underwent cardiac catheterization and stenting of the PDA. Troponin 3.270. 1. Hyperlipidemia. 2. Hypertriglyceridemia. 3. Acute urinary tract infection present on admission. 4. Elevated glucose, possible diabetes type 2. 5. History of gestational diabetes type 2. 6. History of asthma. 7. Hypertension. 8. History of as well as preeclampsia. 9. Anxiety, depression. 10.Obesity with body mass index 44.1. RECOMMENDATIONS AND DISCUSSION: Recommend to continue current medication, continue symptomatic treatment, continue with antiplatelet agents. Please refer to Cardiology notes for further information. Otherwise, prognosis guarded. Beta blockers, antiplatelet agents. Further recommendations to follow. MMODL / IJN: [id number] /
[2019-10-23 23:42] VITALS: RESP 18
[2019-10-24 06:46] LABS: Basophils % (A) 0 %; Eosinophils # (A) 0.1 k/uL (0-0.7); Eosinophils % (A) 2 %; HCT 35.9 % (34.0-46.0); Lymphocytes # (A) 1.8 k/uL (1.0-4.8); Lymphocytes % (A) 27 %; MCH 30.4 pg (25.0-35.0); MCHC 33.5 g/dL (31.0-37.0); MCV 90.7 fL (80.0-100.0); Mean Platelet Volume 7.8; Monocytes # (A) 0.3 k/uL (0-1.0); Monocytes % (A) 5 %; Neutrophils # (A) 4.3 k/uL (1.3-7.7); Neutrophils % (A) 65 %; Platelet Count 305 k/uL (150-450); RBC 3.96 m/uL (3.80-5.40); RDW 12.4 % (11.5-15.5); WBC 6.6 k/uL (3.8-10.6)
[2019-10-24 06:52] LABS: INR 0.9 (<1.2); Prothrombin Time 9.9 sec (9.0-12.0)
[2019-10-24 07:04] LABS: Calcium 9.1 mg/dL (8.4-10.2); Potassium 4.2 mmol/L (3.5-5.1)
[2019-10-24] MEDS ORDERED: PANTOPRAZOLE 40 MG TABLET PO SCH (07:30)
[2019-10-24] MEDS ORDERED: ISOSORBIDE MONONITRATE ER 30 MG TAB.ER.24H PO SCH (09:00)
[2019-10-24] MEDS ORDERED: ASPIRIN 325 MG TAB PO SCH (09:00)
[2019-10-24 09:16] VITALS: TEMP 98.5
[2019-10-24] MEDS: PYRIDOXINE 50 MG TAB PO SCH (09:17)
[2019-10-24] MEDS: METOPROLOL SUCCINATE (ER) 100 MG TAB.ER.24H PO SCH (09:17)
[2019-10-24 11:22] VITALS: BP 117/82; PULSE 98
--- NOTE | 2019-10-24 11:38 | P.PN ---
Subjective Progress Note Date: 10/24/19 This is a pleasant 34-year-old female who delivered her third child about 3 weeks ago, about 2 weeks ago the patient came to the emergency room with complaints of headache, and was found to be hypertensive, she was initiated on Procardia and sent home. Subsequently she was seen by her primary care doctor who changed to Procardia over to Toprol-XL. She presented to the hospital on this occasion with symptoms of an episode of dizziness with diaphoresis as well as some left arm discomfort which lasted several minutes. She denied any discomfort in her chest. Her initial EKG on presentation here showed a normal sinus rhythm with nonspecific ST-T wave changes in the inferior leads. Carotid Doppler study was normal. Chest x-ray on presentation here did not reveal any acute pulmonary process. An echocardiogram with Doppler study was performed which revealed an ejection fraction of 60-65%. CTA of the chest was performed which showed an ascending thoracic aortic aneurysm of 4.3 cm in its of pulmonary embolism. Chest x-ray did not show any acute cardiopulmonary process. Blood pressure here has been stable, 120/80 with a heart rate in the 70s, 98% on room air. No orthostatics were documented when they were evaluated. White blood cell count this morning 5.2, hemoglobin 13.5, platelet count 309. Sodium 140, potassium 4. BUN 16, creatinine 0.9. Troponins 0.2-3, 0.79, 3.2, 3.2. Cholesterol 216, LDL 134, triglycerides 165, HDL 49. Influenza A and B were negative. 10/24/2019 Patient seen and examined this morning, she was taken to the cardiac catheterization lab yesterday, underwent a stent to the PDA. Blood pressure 116/80 with a heart rate in the 90s, 99% on room air. White blood cell count 6.6, hemoglobin 12.0, platelet count 305. Sodium 139, potassium 4.2, BUN 15, creatinine 1.0. Echocardiogram with Doppler study revealed an ejection fraction of 60-65%. Objective - Vital Signs Vital signs: Vital Signs Temp 98.5 F 10/24/19 08:00 Pulse 98 10/24/19 11:21 Resp 18 10/24/19 11:21 BP 117/82 10/24/19 11:21 Pulse Ox 99 10/24/19 11:21 Intake & Output 10/23/19 10/24/1910/24/20 18:59 06:59 18:59 Intake Total 468.731 200 50 Output Total 225 Balance 243.731 200 50 Weight 116.6 kg Intake: IV 345 Intake, IV Titration 123.731 50 Amount Heparin Sod,Pork in 0.45% 103.731 NaCl 25,000 unit In 0.45 % NaCl 1 250ml.bag @ 8.33 UNITS/KG/HR 10.013 mls/ hr IV .Q24H [facility] Rx#: [id number] Sodium Chloride 0.9% 1, 20 000 ml In Empty Bag 1 bag @ 1 ML/KG/HR 117 mls/hr IV .Q8H33M [facility] Rx#: [id number] cefTRIAXone 1 gm In 50 Sodium Chloride 0.9% 50 ml @ 100 mls/hr IVPB Q24HR [facility] Rx#:[id number] Oral 200 Output: Urine 225 Other: # Voids 450 - Exam GENERAL EXAM: Patient is alert and oriented and doesn't appear to be in any acute distress HEENT: Normocephalic. Normal reaction of pupils, equal size, normal range of extraocular motion. No erythema or exudates in the throat. NECK: No masses, no nuchal rigidity. CHEST: No chest wall deformity. LUNGS: Equal air entry with no crackles or wheeze. HEART: S1 and S2 normal with no audible mumurs or gallops. Regular rhythm, femorals equal on both sides.. ABDOMEN: No hepatosplenomegaly, normal bowel sounds, no guarding or rigidity. SKIN: No rashes CENTRAL NERVOUS SYSTEM: No focal deficits. EXTREMITIES: No cyanosis, clubbing or edema. Right groin soft, no evidence of hematoma. - Labs CBC & Chem 7: 10/24/19 05:42 10/24/19 05:42 Assessment and Plan Plan: Assessment and plan #1 non-STEMI, status post angioplasty and stenting of the PDA branch of the right coronary artery #2 gestational hypertension #3 preeclampsia in the period #4 diabetes gestational #5 dizziness, orthostatics have been negative Plan From cardiology's perspective, patient may be able to be discharged home today. We'll make her a follow-up appointment with Dr. Bullard in the office post discharge. She will be discharged home on a baby aspirin daily, Lipitor 80 mg daily, Imdur 30 mg daily, metoprolol 100 mg daily, Effient 10 mg daily, and sub lingual nitroglycerin as needed for chest pain. DNP note has been reviewed, I agree with a documented findings and plan of care. Patient was seen and examined.
--- NOTE | 2019-10-24 11:45 | P.OBCN ---
History of Present Illness Consult date: 10/23/19 Reason for consult: other (, recent history of preeclampsia) Chief complaint: Acute coronary syndrome History of present illness: 34-year-old presented to the emergency room complaining of left arm pain, diaphoresis and shortness of breath. She had an elevated troponin levels then was taken for a cardiac catheterization which revealed acute coronary syndrome and the need for cardiac stent. Same was placed today by Dr. Shelton. Patient seen resting in her bed after just walking from the bathroom. She is not short of breath since she is not having any pain right now. I have been consulted for her care. She is 3 weeks after a vaginal delivery where she had chronic hypertension. I Admitted her 2 weeks ago for chronic hypertension with superimposed preeclampsia. At that time she was also diagnosed with sinusitis. Since that time she has been seen and [facility] office as well as our office at her blood pressures have been normal on medication. Her lochia is minimal and she is not having any uterine cramping. Patient is no longer breast-feeding due to lack of supply. Review of Systems All systems: negative Constitutional: Denies chills, Denies fever Eyes: denies blurred vision, denies pain Ears, nose, mouth and throat: Denies headache, Denies sore throat Cardiovascular: Denies chest pain, Denies shortness of breath Respiratory: Denies cough Gastrointestinal: Denies abdominal pain, Denies diarrhea, Denies nausea, Denies vomiting Genitourinary: Denies dysuria, Denies hematuria Musculoskeletal: Denies myalgias Integumentary: Denies pruritus, Denies rash Neurological: Denies numbness, Denies weakness Psychiatric: Denies anxiety, Denies depression Endocrine: Denies fatigue, Denies weight change Past Medical History Past Medical History: Asthma, Hypertension Additional Past Medical History / Comment(s): Gestational diabetes, three weeks History of Any Multi-Drug Resistant Organisms: None Reported Past Surgical History: Adenoidectomy, Tonsillectomy Additional Past Surgical History / Comment(s): wisdom teeth extraction Past Anesthesia/Blood Transfusion Reactions: No Reported Reaction Past Psychological History: Anxiety, Depression Additional Psychological History / Comment(s): Hx depression Smoking Status: Never smoker Past Alcohol Use History: None Reported Past Drug Use History: None Reported - Past Family History Mother Family Medical History: Diabetes Mellitus, Hypertension Medications and Allergies Home Medications Medication Instructions Recorded Confirmed Type metFORMIN HCL 1,000 mg PO BID 07/29/19 10/22/19 History Pnv No.95/Ferrous Fum/Folic AC 1 tab PO DAILY 09/27/19 10/22/19 History [ Multivitamin Tablet] Albuterol Nebulized [Ventolin 2.5 mg INHALATION RT-QID PRN 10/06/19 10/22/19 History Nebulized] Doxylamine Succinate [Unisom] 25 mg PO HS 10/06/19 10/22/19 History Vitamin B-6(Unknown Dose) 1 tab PO DAILY 10/06/19 10/22/19 History Acetaminophen Tab [Tylenol Tab] 1,000 mg PO Q6HR PRN 10/22/19 10/22/19 History Metoprolol Succinate (ER) [Toprol 100 mg PO DAILY 10/22/19 10/22/19 History XL] Aspirin 81 mg PO DAILY #30 chew 10/24/19 Rx Atorvastatin [Lipitor] 80 mg PO HS #30 tab 10/24/19 Rx Isosorbide Mononitrate ER [Imdur] 30 mg PO DAILY #30 tab.er.24h 10/24/19 Rx NIFEdipine XL [Procardia Xl] 60 mg PO DAILY 10/24/19 10/24/19 History Nitroglycerin Sl Tabs [Nitrostat] 0.4 mg SUBLINGUAL Q5M PRN #25 tab 10/24/19 Rx Prasugrel [Effient] 10 mg PO DAILY #30 tab 10/24/19 Rx Allergies Allergy/AdvReac Type Severity Reaction Status Date / Time sulfamethoxazole Allergy Unknown Verified 10/22/19 11:56 [From Bactrim] Childhood trimethoprim [From Bactrim] Allergy Unknown Verified 10/22/19 11:56 Childhood Exam Osteopathic Statement: *. No significant issues noted on an osteopathic structural exam other than those noted in the History and Physical/Consult. Vital Signs Temp Pulse Pulse Resp BP BP BP 10/24/19 11:21 98 18 117/82 10/24/19 08:00 98.5 F 18 122/79 10/24/19 04:00 98.3 F 77 18 135/79 10/23/19 23:38 98.4 F 81 18 130/70 10/23/19 20:00 98.7 F 79 16 149/93 10/23/19 17:40 81 18 10/23/19 16:40 75 16 10/23/19 15:40 97.4 F L 75 16 10/23/19 15:10 76 16 10/23/19 14:40 78 18 130/86 10/23/19 14:25 75 16 117/82 10/23/19 14:10 81 18 10/23/19 13:55 84 16 114/79 10/23/19 12:00 84 16 BP Pulse Ox 10/24/19 11:21 99 10/24/19 08:00 97 10/24/19 04:00 10/23/19 23:38 10/23/19 20:00 97 10/23/19 17:40 114/78 95 10/23/19 16:40 117/82 94 L 10/23/19 15:40 130/84 99 10/23/19 15:10 129/88 99 10/23/19 14:40 96 10/23/19 14:25 94 L 10/23/19 14:10 114/83 95 10/23/19 13:55 93 L 10/23/19 12:00 Intake and Output 10/23/19 10/24/19 10/24/19 22:59 06:59 14:59 Intake Total 200 50 Output Total 225 Balance -225 200 50 Intake: Intake, IV Titration 50 Amount cefTRIAXone 1 gm In 50 Sodium Chloride 0.9% 50 ml @ 100 mls/hr IVPB Q24HR [facility] Rx#:[id number] Oral 200 Output: Urine 225 Other: # Voids 450 Weight 116.6 kg Abdomen : Fundus firm below umbilicus. Results Result Diagrams: 10/24/19 05:42 10/24/19 05:42 Assessment and Plan (1) Status post normal vaginal delivery Current Visit: Yes Status: Acute Code(s): [id number] - SNOMED Code(s): 640201461 (2) Chronic hypertension Current Visit: Yes Status: Acute Code(s): I10 - ESSENTIAL (PRIMARY) HYPERTENSION SNOMED Code(s): 51526762 Plan: 1. For the care management based make sure she just has everything that she needs for her perineal care. As far as vitamins and medications go a can be up to medicine and cardiology. As the patient is no longer or breast-feeding medications chosen don't need to be considered for what would affect the baby. Thanks for this consultation.
[2019-10-24 12:56] VITALS: BMI 42.7
[2019-10-24] MEDS ORDERED: PRASUGREL 10 MG TAB PO SCH (13:31)
--- NOTE | 2019-10-24 16:29 | PN ---
PROGRESS NOTE DATE OF SERVICE: 10/23/2019 This 34-year-old was admitted with acute non ST segment myocardial infarction, underwent cardiac catheterization and stenting of the RCA by the Cardiology. No chest pain. No palpitations. No fever. PHYSICAL EXAMINATION: Alert and oriented x3. The pulse is 76 blood pressure 110/80 respirations 16, temperature 97.4, pulse ox 98% on 2 L. HEENT: Conjunctivae normal. Oral mucosa moist. NECK: No jugular venous distention. No lymph node enlargement. CARDIOVASCULAR: S1, S2. RESPIRATORY: Diminished breath sounds at the bases. A few scattered rhonchi. ABDOMEN: Soft, nontender. LEGS: No edema, no swelling. NERVOUS SYSTEM: No focal deficits. Labs are reviewed. MMODL / IJN: [id number] /
--- NOTE | 2019-10-25 08:39 | DS ---
DISCHARGE SUMMARY DATE OF SERVICE: 10/24/2019 FINAL DIAGNOSES: 1. Acute mmx-GH-jquqsuegf myocardial infarction, status post cardiac catheterization and stenting of the PDA. 2. Hyperlipidemia. 3. Hypertriglyceridemia. 4. Acute urinary tract infection, present on admission. 5. Elevated glucose, rule out diabetes mellitus type 2. 6. Gestational diabetes mellitus type 2 history. 7. History of asthma. 8. Hypertension. 9. History of preeclampsia. 10.Anxiety, depression. 11.Obesity with body mass index of 44.1. 12.Ascending aortic aneurysm 4.3 cm, asymptomatic. DISCHARGE DISPOSITION: The patient will be discharged in stable condition with guarded prognosis. HISTORY OF PRESENT ILLNESS: This 34-year-old woman with a past medical history of multiple medical problems was admitted with features of chest pain and as well as acute icb-WQ-wurlppqwx myocardial infarction. Patient underwent cardiac catheterization and stenting of the PDA. Troponin was elevated up to 3.270. The patient monitored closely. Cardiology saw the patient and cleared the patient for discharge. The patient will be discharged in stable condition and guarded prognosis. On exam, vitals are stable. CARDIOVASCULAR: S1, S2 muffled. ABDOMEN: Soft. NERVOUS SYSTEM: No focal deficits. DISCHARGE ADVICE: 1. Diet is cardiac. 2. Activity limited until followup. 3. Follow up with Dr. Vesna Whelan in 2 to 3 days. 4. Follow up with Dr. Bullard as recommended. 5. Follow up with Dr. Vale as recommended. Medications are as follows: 1. Metformin 1000 mg p.o. b.i.d. 2. Multivitamins one p.o. daily. 3. procardia xl 60 mg p.o. daily. 4. Toprol-XL 100 mg p.o. daily. 5. Tylenol p.r.n. 6. Unisom p.r.n. 7. Albuterol p.r.n. 8. Vitamin B6 p.o. daily. 9. Aspirin 81 mg p.o. daily. 10.Ceftin 500 mg p.o. b.i.d. for 3 days. 11.Effient 10 mg p.o. daily. 12.Imdur ER 30 mg. 13.Lipitor 80 mg at bedtime. 14.Nitrostat 0.4 sublingual p.r.n. Once again, the patient will be discharged in stable condition with guarded prognosis. MMNOEMI / IJN: [id number] / MTDD
[2019-10-25] MEDS ORDERED: ASPIRIN 81 MG PO SCH (09:00)
== END 2019-10-24 13:40 | disposition home or self-care (01) ==
LOC: EC 10:04 → 3SCARD 19:40 → UNDOADMOB 19:40 → 3SCARD 22:54 → OBSVTOIN 10-23 13:02 → INTOOBSV 10-23 13:02 → UNDODISIN 10-24 13:40
PROVIDERS: ADMIT Hospitalist; ATTEND Hospitalist
DX: O99.43 Diseases of the circulatory system complicating the puerperium (principal); I21.4 Non-ST elevation (NSTEMI) myocardial infarction; N39.0 Urinary tract infection, site not specified; Z68.41 Body mass index [BMI] 40.0-44.9, adult; O14.95 Unspecified pre-eclampsia, complicating the puerperium; Z86.32 Personal history of gestational diabetes; O99.345 Other mental disorders complicating the puerperium; I11.9 Hypertensive heart disease without heart failure; F41.9 Anxiety disorder, unspecified; O99.53 Diseases of the respiratory system complicating the puerperium; J45.909 Unspecified asthma, uncomplicated; I71.2 Thoracic aortic aneurysm, without rupture; E66.9 Obesity, unspecified; E78.1 Pure hyperglyceridemia; E78.5 Hyperlipidemia, unspecified; F32.9 Major depressive disorder, single episode, unspecified; Z79.02 Long term (current) use of antithrombotics/antiplatelets; Z79.82 Long term (current) use of aspirin; Z79.899 Other long term (current) drug therapy; Z82.49 Family history of ischemic heart disease and other diseases of the circulatory system; Z83.3 Family history of diabetes mellitus; Z95.5 Presence of coronary angioplasty implant and graft; Z88.2 Allergy status to sulfonamides
CPT/HCPCS: 96376 ×2; 96366 ×2; 96375; 93005 ×3; 96365; 99285; 36415; 93306; 93458; 85379; 80061; 80053; 80048 ×2; 85652; 83735; 84484 ×2; 85025 ×3; 85610 ×3; 85730 ×2; 86140; 86431; 81001; 86038; 80306; 87086; 87502; 71045; 71046; 93880; 71275; 70545; 70553; G0378 ×3; C9600; C1769 ×7; C1887 ×2; C1725 ×2; C1894; C1760; C1874; J2250; J1644 ×3; J2001; J0696 ×2; J3010; J1170; J0583; C9113; A9585; Q9967 ×4

== ENCOUNTER → 2019-11-30 | Outpatient (CLI) | payer BC ==
[2019-11-30 15:54] LABS: Albumin 4.6 g/dL (3.80-4.90); Albumin/Globulin Ratio 2.88 (1.60-3.17); Bilirubin, Conjugated 0.2 mg/dL (0.20-0.40); Bilirubin,Unconjugated 0.4 mg/dL; Chol/HDL Ratio 2.41; Globulin 1.6 g/dL (1.6-3.3); LDL Cholesterol,Calculated 37.4 mg/dL (0.0-131.0); Total Bilirubin 0.6 mg/dL (0.3-1.2); Total Protein 6.2 g/dL (6.2-8.2); VLDL Calculation 24.6 mg/dL (5.00-40.00)
== END | disposition home or self-care (01) ==
LOC: LABWHC1 07:45
PROVIDERS: ATTEND Internal Medicine Cardiovascular Disease
DX: I25.10 Atherosclerotic heart disease of native coronary artery without angina pectoris (principal); E78.5 Hyperlipidemia, unspecified
CPT/HCPCS: 36415; 80061; 80076

== ENCOUNTER → 2019-12-06 | Outpatient (CLI) | payer BC ==
--- NOTE | 2019-12-06 09:00 | CT ---
EXAMINATION TYPE: CT angio abdomen pelvis DATE OF EXAM: 12/06/2019 COMPARISON: None HISTORY: Chronic ischemic heart disease CT DLP: 1077.4 mGycm CONTRAST: CTA thoracic and abdominal aorta with 3-D reconstruction is performed without Oral Contrast and with IV Contrast, patient injected with 100 mL of Isovue 370. Contrast CTA of the abdominal aorta was performed from the lung bases through the base of the pelvis. 3-D reconstruction imaging obtained at a separate workstation. CONTRAST CT ABDOMEN AND PELVIS ABDOMINAL AORTA: No evidence for abdominal aortic aneurysm. No dissection. Iliac vessels are symmet tj and patent. LIVER/GB- No significant abnormality is seen. PANCREAS- No significant abnormality is seen. SPLEEN- No significant abnormality is seen. ADRENALS- No significant abnormality is seen. KIDNEYS/BLADDER- No significant abnormality is seen. BOWEL- No Significant abnormality GENITAL ORGANS: No gross abnormality seen. LYMPH NODES- No greater than 1cm abdominal or pelvic lymph nodes areappreciated. OSSEOUS STRUCTURES- No significant abnormality is seen. OTHER- No significant abnormality is seen. IMPRESSION- No evidence for abdominal aortic aneurysm.
--- NOTE | 2019-12-06 09:24 | CT ---
EXAMINATION TYPE: CT angio neck DATE OF EXAM: 12/06/2019 COMPARISON: None HISTORY: Chronic ischemic heart disease CT DLP: 447.2 mGycm CONTRAST: CTA cervical carotids is performed and with IV Contrast, patient injected with 65 mL of Isovue 370. Contrast CTA of the cervical carotids was performed 3-D reconstruction imaging obtained at a separate workstation. Right carotid system: No significant plaque is seen of the right common carotid artery. There is No significant plaque also noted at the carotid bulb. No hemodynamically significant stenosis identified . Tortuosity right ICA noted. ECA is patent. Right vertebral artery appears unremarkable. Left carotid system: No significant is seen of the left common carotid artery. There is No significa nt also noted at the carotid bulb. No hemodynamically significant stenosis identified. ECA is patrick nt. Left vertebral artery appears unremarkable. IMPRESSION: 1. No hemodynamically significant stenosis identified.
== END | disposition home or self-care (01) ==
LOC: RADCTMAIN 07:06
PROVIDERS: ATTEND Internal Medicine Cardiovascular Disease
DX: I25.10 Atherosclerotic heart disease of native coronary artery without angina pectoris (principal); I25.9 Chronic ischemic heart disease, unspecified; Z88.2 Allergy status to sulfonamides
CPT/HCPCS: 70498; 74174; Q9967

== ENCOUNTER → 2020-05-04 | Outpatient (CLI) | payer BC ==
[2020-05-04 16:11] LABS: African American GFR (CKD) >90 (>60 ml/min/1.73 sqM); Blood Urea Nitrogen 17 mg/dL (7-17); Non-African American GFR(CKD) 84 (>60 ml/min/1.73 sqM)
--- NOTE | 2020-05-05 07:28 | CT ---
CT CHEST FOR PULMONARY EMBOLISM. EXAMINATION TYPE: CT angio chest DATE OF EXAM: 05/04/2020 INDICATION: Thoracic Aortic Aneurysm w/out rupture. Pt states she had a stent placed in aortic arch a fter [facility] in October. [facility] occured post live delivery CT DLP: 1306 mGycm, Automated exposure control for dose reduction was used. CONTRAST: Patient injected with 100 mL of Isovue 370. COMPARISON: 10/22/2019 TECHNIQUE: CT of the chest is performed on a spiral scan at 2 mm thick sections. Study is performed with intravenous contrast timed for evaluation for the aorta. This will limit additional portions of the evaluation. 3-D MIP images reconstructed by the technologist are reviewed on the computer in th e coronal and sagittal planes. Pre and postcontrast imaging is performed. FINDINGS: The thoracic aorta at the aortic root measures 3.3 cm. Thoracic aorta at the level of main pulmonary artery is 4.2 cm. The main pulmonary artery the bifurcation is 3.2 cm. The thoracic aorta at the aort ic arch level with a transverse dimension of 2.6 cm. Thoracic aorta at the diaphragm is 2.3 cm. Three-D reconstructed images performed on a separate computer by the technologist are reviewed. There is a three-vessel arch. No mediastinal or hilar adenopathy enlarged by CT criteria is evident. There is a punctate 0.2 cm density within the right midlung. Series 8 image 29 lung windows. This pre sent previously. Lungs are otherwise clear. Limited CT section through the upper abdomen are unremarkable. IMPRESSIONS: 1. Ascending thoracic aortic aneurysm measuring 4.2 cm. Exam is stable from comparison.
== END | disposition home or self-care (01) ==
LOC: RADCTMAIN 15:12
PROVIDERS: ATTEND Thoracic Surgery (Cardiothoracic Vascular Surgery)
DX: I71.2 Thoracic aortic aneurysm, without rupture (principal); Z88.1 Allergy status to other antibiotic agents
CPT/HCPCS: 82565; 84520; 71275; Q9967

== ENCOUNTER 2020-09-16 19:25 | Observation (INO) | payer BC ==
[2020-09-16 19:30] VITALS: RESP 16
--- NOTE | 2020-09-16 20:16 | ED ---
General Adult HPI - General Chief complaint: Chest Pain Stated complaint: Chest Pain Time Seen by Provider: 09/16/20 19:55 Source: patient, RN notes reviewed, old records reviewed Mode of arrival: ambulatory Limitations: no limitations - History of Present Illness Initial comments: 34-year-old female presenting for evaluation of left-sided chest pain. Patient has history of coronary artery disease status post stenting in October 2019. She is on 2 antiplatelet agents. As well as Toprol, Imdur, and metformin. She is a nonsmoker. Approximately one hour prior to arrival she developed left- sided chest pain which was nonradiating. No associated nausea vomiting. No diaphoresis. No dyspnea. She has been compliant with her medication. Her pain is resolved at this time. - Related Data Home Medications Medication Instructions Recorded Confirmed metFORMIN HCL 1,000 mg PO BID 07/29/19 10/22/19 Pnv No.95/Ferrous Fum/Folic AC 1 tab PO DAILY 09/27/19 10/22/19 [ Multivitamin Tablet] Albuterol Nebulized [Ventolin 2.5 mg INHALATION RT-QID PRN 10/06/19 10/22/19 Nebulized] Doxylamine Succinate [Unisom] 25 mg PO HS 10/06/19 10/22/19 Vitamin B-6(Unknown Dose) 1 tab PO DAILY 10/06/19 10/22/19 Acetaminophen Tab [Tylenol] 1,000 mg PO Q6HR PRN 10/22/19 10/22/19 Metoprolol Succinate (ER) [Toprol 100 mg PO DAILY 10/22/19 10/22/19 XL] NIFEdipine XL [Procardia XL] 60 mg PO DAILY 10/24/19 10/24/19 Previous Rx's Medication Instructions Recorded Aspirin 81 mg PO DAILY #30 chew 10/24/19 Atorvastatin [Lipitor] 80 mg PO HS #30 tab 10/24/19 Cefuroxime Axetil [Ceftin] 500 mg PO BID 3 Days #6 tab 10/24/19 Isosorbide Mononitrate ER [Imdur] 30 mg PO DAILY #30 tab.er.24h 10/24/19 Nitroglycerin Sl Tabs [Nitrostat] 0.4 mg SUBLINGUAL Q5M PRN #25 tab 10/24/19 Prasugrel [Effient] 10 mg PO DAILY #30 tab 10/24/19 Allergies Allergy/AdvReac Type Severity Reaction Status Date / Time sulfamethoxazole Allergy Unknown Verified 09/16/20 19:25 [From Bactrim] Childhood trimethoprim [From Bactrim] Allergy Unknown Verified 09/16/20 19:25 Childhood Review of Systems ROS Statement: Those systems with pertinent positive or pertinent negative responses have been documented in the HPI. ROS Other: All systems not noted in ROS Statement are negative. Past Medical History Past Medical History: Asthma, Hypertension, Myocardial Infarction ([place]) Additional Past Medical History / Comment(s): Gestational diabetes, three weeks History of Any Multi-Drug Resistant Organisms: None Reported Past Surgical History: Adenoidectomy, Heart Catheterization With Stent, Tonsillectomy Additional Past Surgical History / Comment(s): wisdom teeth extraction Past Anesthesia/Blood Transfusion Reactions: No Reported Reaction Past Psychological History: Anxiety, Depression Smoking Status: Never smoker Past Alcohol Use History: None Reported Past Drug Use History: None Reported - Past Family History Mother Family Medical History: Diabetes Mellitus, Hypertension General Exam Limitations: no limitations General appearance: alert, in no apparent distress Head exam: Present: atraumatic, normocephalic Eye exam: Present: normal appearance, PERRL ENT exam: Present: normal exam Neck exam: Present: normal inspection. Absent: tenderness, meningismus Respiratory exam: Present: normal lung sounds bilaterally. Absent: respiratory distress, wheezes Cardiovascular Exam: Present: regular rate, normal rhythm GI/Abdominal exam: Present: soft. Absent: distended, tenderness, guarding Extremities exam: Present: normal inspection, normal capillary refill. Absent: pedal edema Neurological exam: Present: alert, oriented X3, CN II-XII intact Psychiatric exam: Present: normal affect, normal mood Skin exam: Present: warm, dry, intact. Absent: cyanosis, diaphoretic Course Vital Signs 09/16/20 09/16/20 19:26 20:30 Temperature 98.2 F 98.6 F Pulse Rate 78 85 Respiratory 16 16 Rate Blood Pressure 131/94 131/83 O2 Sat by Pulse 100 98 Oximetry EKG Findings - EKG Comments: EKG Findings:: EKG: Normal sinus rhythm, anterior infarct age undetermined, rate of 89, LA interval 160, QRS duration 84, QTC 459, no ST segment elevation. Medical Decision Making - Medical Decision Making 34-year-old female with known CAD status post stenting presents for evaluation of left-sided chest pain. Pain is nonradiating, not associated with nausea or diaphoresis. Pain resolved at the time my evaluation and completely resolved at the time my reevaluation at 213. Workup reveals EKG shows sinus rhythm without ST segment elevation. Chest x-rays negative for acute cardiac primary disease. Patient has normal CBC, normal CMP, negative initial troponin. She will be kept in observation for serial cardiac enzymes, telemetry, cardiology consultation. - Lab Data Result diagrams: 09/16/20 20:16 09/16/20 20:16 Lab Results 09/16/20 09/16/20 09/16/20 Range/Units 20:16 20:16 20:16 WBC 8.7 (3.8-10.6) k/uL RBC 4.83 (3.80-5.40) m/uL Hgb 14.2 (11.4-16.0) gm/dL Hct 42.5 (34.0-46.0) % MCV 87.9 (80.0-100.0) fL MCH 29.5 (25.0-35.0) pg MCHC 33.5 (31.0-37.0) g/dL RDW 13.6 (11.5-15.5) % Plt Count 309 (150-450) k/uL MPV 7.6 Neutrophils % 55 % Lymphocytes % 36 % Monocytes % 4 % Eosinophils % 2 % Basophils % 1 % Neutrophils # 4.8 (1.3-7.7) k/uL Lymphocytes # 3.1 (1.0-4.8) k/uL Monocytes # 0.4 (0-1.0) k/uL Eosinophils # 0.2 (0-0.7) k/uL Basophils # 0.1 (0-0.2) k/uL PT 9.4 (9.0-12.0) sec INR 0.9 (<1.2) APTT 21.8 L (22.0-30.0) sec Sodium 137 (137-145) mmol/L Potassium 4.1 (3.5-5.1) mmol/L Chloride 103 (98-107) mmol/L Carbon Dioxide 25 (22-30) mmol/L Anion Gap 9 mmol/L BUN 20 H (7-17) mg/dL Creatinine 0.93 (0.52-1.04) mg/dL Est GFR (CKD-EPI)AfAm >90 (>60 ml/min/1.73 sqM) Est GFR (CKD-EPI)NonAf 80 (>60 ml/min/1.73 sqM) Glucose 150 H (74-99) mg/dL Calcium 9.2 (8.4-10.2) mg/dL Magnesium 1.6 (1.6-2.3) mg/dL Total Bilirubin 0.6 (0.2-1.3) mg/dL AST 26 (14-36) U/L ALT 25 (4-34) U/L Alkaline Phosphatase 76 (38-126) U/L Troponin I (0.000-0.034) ng/mL NT-Pro-B Natriuret Pep pg/mL Total Protein 7.2 (6.3-8.2) g/dL Albumin 4.5 (3.5-5.0) g/dL Lipase 96 (23-300) U/L 09/16/20 09/16/20 Range/Units 20:16 20:16 WBC (3.8-10.6) k/uL RBC (3.80-5.40) m/uL Hgb (11.4-16.0) gm/dL Hct (34.0-46.0) % MCV (80.0-100.0) fL MCH (25.0-35.0) pg MCHC (31.0-37.0) g/dL RDW (11.5-15.5) % Plt Count (150-450) k/uL MPV Neutrophils % % Lymphocytes % % Monocytes % % Eosinophils % % Basophils % % Neutrophils # (1.3-7.7) k/uL Lymphocytes # (1.0-4.8) k/uL Monocytes # (0-1.0) k/uL Eosinophils # (0-0.7) k/uL Basophils # (0-0.2) k/uL PT (9.0-12.0) sec INR (<1.2) APTT (22.0-30.0) sec Sodium (137-145) mmol/L Potassium (3.5-5.1) mmol/L Chloride (98-107) mmol/L Carbon Dioxide (22-30) mmol/L Anion Gap mmol/L BUN (7-17) mg/dL Creatinine (0.52-1.04) mg/dL Est GFR (CKD-EPI)AfAm (>60 ml/min/1.73 sqM) Est GFR (CKD-EPI)NonAf (>60 ml/min/1.73 sqM) Glucose (74-99) mg/dL Calcium (8.4-10.2) mg/dL Magnesium (1.6-2.3) mg/dL Total Bilirubin (0.2-1.3) mg/dL AST (14-36) U/L ALT (4-34) U/L Alkaline Phosphatase (38-126) U/L Troponin I <0.012 (0.000-0.034) ng/mL NT-Pro-B Natriuret Pep 48 pg/mL Total Protein (6.3-8.2) g/dL Albumin (3.5-5.0) g/dL Lipase (23-300) U/L Disposition Clinical Impression: Chest pain Disposition: ADMITTED IP TO THIS [facility] Condition: Stable Is patient prescribed a controlled substance at d/c from ED?: No Referrals: Vesna Whelan MD [Primary Care Provider] - 1-2 days Decision to Admit Reason: Admit from EC Decision Date: 09/16/20 Decision Time: 21:35
--- NOTE | 2020-09-16 20:36 | XR ---
EXAMINATION TYPE: XR chest 2V DATE OF EXAM: 09/16/2020 COMPARISON: 10/23/2019 HISTORY: Short of breath. Chest pain TECHNIQUE: 2 views FINDINGS: Heart and mediastinum are normal. Lungs are clear. Diaphragm is normal. There are chest katarzyna ds. Bony thorax is intact. IMPRESSION: Normal chest. No change.
[2020-09-16 20:37] LABS: Basophils # (A) 0.1 k/uL (0-0.2); Basophils % (A) 1 %; Eosinophils # (A) 0.2 k/uL (0-0.7); Eosinophils % (A) 2 %; HCT 42.5 % (34.0-46.0); HGB 14.2 gm/dL (11.4-16.0); Lymphocytes # (A) 3.1 k/uL (1.0-4.8); Lymphocytes % (A) 36 %; MCH 29.5 pg (25.0-35.0); MCHC 33.5 g/dL (31.0-37.0); MCV 87.9 fL (80.0-100.0); Mean Platelet Volume 7.6; Monocytes # (A) 0.4 k/uL (0-1.0); Monocytes % (A) 4 %; Neutrophils # (A) 4.8 k/uL (1.3-7.7); Neutrophils % (A) 55 %; Platelet Count 309 k/uL (150-450); RBC 4.83 m/uL (3.80-5.40); RDW 13.6 % (11.5-15.5); WBC 8.7 k/uL (3.8-10.6)
[2020-09-16 20:58] LABS: ALT 25 U/L (4-34); AST 26 U/L (14-36); African American GFR (CKD) >90 (>60 ml/min/1.73 sqM); Albumin 4.5 g/dL (3.5-5.0); Alkaline Phosphatase 76 U/L (38-126); Anion Gap 9 mmol/L; Blood Urea Nitrogen 20 mg/dL (7-17); Calcium 9.2 mg/dL (8.4-10.2); Carbon Dioxide 25 mmol/L (22-30); Chloride 103 mmol/L (98-107); Glucose 150 mg/dL (74-99); INR 0.9 (<1.2); Lipase 96 U/L (23-300); Magnesium 1.6 mg/dL (1.6-2.3); Non-African American GFR(CKD) 80 (>60 ml/min/1.73 sqM); Potassium 4.1 mmol/L (3.5-5.1); Prothrombin Time 9.4 sec (9.0-12.0); Sodium 137 mmol/L (137-145); Total Bilirubin 0.6 mg/dL (0.2-1.3); Total Protein 7.2 g/dL (6.3-8.2)
[2020-09-16 21:08] LABS: Partial Thromboplastin Time 21.8 sec (22.0-30.0)
[2020-09-16] MEDS ORDERED: ASPIRIN 325 MG TAB PO STA (21:33)
[2020-09-16] MEDS ORDERED: ACETAMINOPHEN TAB 325 MG TAB PO PRN (21:33)
[2020-09-16] MEDS ORDERED: NALOXONE 0.4 MG/ML 1 ML VIAL IV PRN (21:33)
[2020-09-17 03:35] VITALS: BP 135/75; PULSE 72; TEMP 98
[2020-09-17] MEDS ORDERED: ASPIRIN 81 MG PO SCH (09:00)
[2020-09-17] MEDS ORDERED: PRASUGREL 10 MG TAB PO SCH (09:00)
[2020-09-17] MEDS ORDERED: METOPROLOL SUCCINATE (ER) 100 MG TAB.ER.24H PO SCH (09:00)
--- NOTE | 2020-09-20 22:23 | HP ---
HISTORY AND PHYSICAL HISTORY AND PHYSICAL/DISCHARGE SUMMARY: This is a combined history and discharge summary. CHIEF COMPLAINT: Chest pain. HISTORY OF PRESENT ILLNESS: This 34-year-old woman with a past medical history of multiple medical problems admitted with chest pain, but however the patient left the hospital AGAINST MEDICAL ADVICE before being seen from the ER itself. Please refer to the ER staff notes and the ER physician notes for further details. FINAL DIAGNOSIS: Chest pain for evaluation. MMODL / IJN: [id number] /
== END 2020-09-17 03:25 | disposition left against medical advice (07) ==
LOC: EC 19:25 → 1SOBS 21:33
PROVIDERS: ADMIT Hospitalist; ATTEND Hospitalist
DX: R07.89 Other chest pain (principal); I25.10 Atherosclerotic heart disease of native coronary artery without angina pectoris; I10 Essential (primary) hypertension; Z95.5 Presence of coronary angioplasty implant and graft; J45.909 Unspecified asthma, uncomplicated; F32.9 Major depressive disorder, single episode, unspecified; F41.9 Anxiety disorder, unspecified; Z53.29 Procedure and treatment not carried out because of patient's decision for other reasons; Z79.82 Long term (current) use of aspirin; Z79.02 Long term (current) use of antithrombotics/antiplatelets; Z79.84 Long term (current) use of oral hypoglycemic drugs; Z79.899 Other long term (current) drug therapy; Z88.1 Allergy status to other antibiotic agents; Z88.2 Allergy status to sulfonamides; Z86.32 Personal history of gestational diabetes; I25.2 Old myocardial infarction; Z82.49 Family history of ischemic heart disease and other diseases of the circulatory system; Z83.3 Family history of diabetes mellitus
CPT/HCPCS: 99285; 36415; 93005; 83880; 80053; 83690; 83735; 84484 ×2; 85025; 85610; 85730; 71046; G0378 ×2

== ENCOUNTER → 2020-10-07 | Outpatient (CLI) | payer BC ==
[2020-10-07 09:49] LABS: Basophils % (A) 1 %; Eosinophils # (A) 0.1 k/uL (0-0.7); Eosinophils % (A) 2 %; HGB 13.5 gm/dL (11.4-16.0); Lymphocytes % (A) 32 %; MCH 30.6 pg (25.0-35.0); MCHC 34.6 g/dL (31.0-37.0); MCV 88.5 fL (80.0-100.0); Mean Platelet Volume 7.4; Monocytes # (A) 0.3 k/uL (0-1.0); Monocytes % (A) 4 %; Neutrophils # (A) 3.8 k/uL (1.3-7.7); Neutrophils % (A) 61 %; Platelet Count 263 k/uL (150-450); RBC 4.41 m/uL (3.80-5.40); RDW 13.1 % (11.5-15.5); WBC 6.3 k/uL (3.8-10.6)
[2020-10-07 17:58] LABS: African American GFR (CKD) 94.7 (60.0-200.0); Albumin 4.5 g/dL (3.80-4.90); Albumin/Globulin Ratio 2.25 (1.60-3.17); Anion Gap 4.8 mmol/L (4.00-12.00); BUN/Creat Ratio 15.56 Ratio (12.00-20.00); Calcium 9.3 mg/dL (8.7-10.3); Carbon Dioxide 27.2 mmol/L (21.6-31.8); Chol/HDL Ratio 2.41; Non-African American GFR(CKD) 81.7 (60.0-200.0); Potassium 5.1 mmol/L (3.5-5.5); Total Bilirubin 0.5 mg/dL (0.3-1.2); Total Protein 6.5 g/dL (6.2-8.2)
== END | disposition home or self-care (01) ==
LOC: LABMAIN 08:10
PROVIDERS: ATTEND Family Medicine
DX: Z00.00 Encounter for general adult medical examination without abnormal findings (principal); Z13.220 Encounter for screening for lipoid disorders; Z13.29 Encounter for screening for other suspected endocrine disorder; R73.03 Prediabetes; I10 Essential (primary) hypertension
CPT/HCPCS: 36415; 80053; 80061; 84443; 85025

== ENCOUNTER → 2021-03-26 | Outpatient (CLI) | payer BC ==
[2021-03-26 23:09] LABS: Basophils # (A) 0.02 X 10*3/uL (0.00-0.10); Basophils % (A) 0.4 %; Eosinophils # (A) 0.06 X 10*3/uL (0.04-0.35); Eosinophils % (A) 1.2 %; HCT 39.6 % (37.2-46.3); HGB 12.4 g/dL (12.0-15.0); Lymphocytes # (A) 1.76 X 10*3/uL (0.90-5.00); MCH 28.6 pg (27.0-32.0); MCHC 31.3 g/dL (32.0-37.0); MCV 91.2 fL (80.0-97.0); Mean Platelet Volume 11.2 fL (9.5-12.2); Monocytes # (A) 0.42 X 10*3/uL (0.20-1.00); Monocytes % (A) 8.1 %; Neutrophils % (A) 56.1 %; Platelet Count 236 X 10*3/uL (140-440); RBC 4.34 X 10*6/uL (4.10-5.20); RDW 14.2 % (11.5-14.5); WBC 5.17 X 10*3/uL (4.50-10.00)
[2021-03-27 01:23] LABS: % Iron Saturation 12.31 (12.00-45.00); ALT 20 U/L (8-44); AST 21 U/L (13-35); African American GFR (CKD) 94.7 (60.0-200.0); Albumin/Globulin Ratio 2.05 (1.60-3.17); Alkaline Phosphatase 57 U/L (41-126); BUN/Creat Ratio 17.78 Ratio (12.00-20.00); Calcium 9.1 mg/dL (8.7-10.3); Carbon Dioxide 22.6 mmol/L (21.6-31.8); Chloride 109 mmol/L (96-109); Chol/HDL Ratio 4.75; Cholesterol 190 mg/dL (0-200); Globulin 2.1 g/dL (1.6-3.3); Glucose 145 mg/dL (70-110); Iron 41 ug/dL (50-170); LDL Cholesterol,Calculated 127.2 mg/dL (0.0-131.0); Non-African American GFR(CKD) 81.7 (60.0-200.0); Potassium 4.3 mmol/L (3.5-5.5); Sodium 141 mmol/L (135-145); Total Bilirubin 0.8 mg/dL (0.3-1.2); Total Iron Binding Capacity 333 ug/dL (228-460); Total Protein 6.4 g/dL (6.2-8.2)
[2021-03-27 03:14] LABS: Ferritin 14.3 ng/mL (10.0-291.0); Vitamin B12 >4000.0 pg/mL (211-911)
[2021-03-28 06:13] LABS: Vit B1(Thiamine) 69 ug/L (38-122)
[2021-03-28 12:58] LABS: Vitamin A 30 ug/dL (38-106)
== END | disposition home or self-care (01) ==
LOC: LABWHC1 15:02
PROVIDERS: ATTEND Physician Assistant Medical
DX: I10 Essential (primary) hypertension (principal); I25.42 Coronary artery dissection; I71.4 Abdominal aortic aneurysm, without rupture; R73.03 Prediabetes; Z95.5 Presence of coronary angioplasty implant and graft; Z98.84 Bariatric surgery status
CPT/HCPCS: 36415; 80053; 80061; 82306; 82607; 82728; 82747; 83036; 83540; 83550; 83970; 84134; 84425; 84443; 84590; 85025

== ENCOUNTER 2021-04-09 11:48 | Emergency (ER) | payer BC ==
[2021-04-09 11:53] VITALS: RESP 18
[2021-04-09] MEDS ORDERED: KETOROLAC 15 MG/ML 1 ML VIAL IVP STA (12:18)
--- NOTE | 2021-04-09 12:28 | ED ---
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 She is not recall any particular incident however that hurt her chest. She did take a nitroglycerin without relief. Additionally the patient does state the pain is different than her pain is she had with her CA. MD Complaint: chest pain - Related Data Home Medications Medication Instructions Recorded Confirmed Metoprolol Succinate (ER) [Toprol 100 mg PO DAILY 10/22/19 04/09/21 XL] Isosorbide Dinitrate 30 mg PO DAILY 09/16/20 04/09/21 Prasugrel [Effient] 10 mg PO DAILY 09/16/20 04/09/21 Aspirin EC [Ecotrin Low Dose] 81 mg PO DAILY 04/09/21 04/09/21 Cholecalciferol (Vitamin D3) 75 mcg PO DAILY 04/09/21 04/09/21 [Vitamin D3 (3000 Iu)] Cyanocobalamin (Vitamin B-12) 1,000 mcg PO DAILY 04/09/21 04/09/21 [Vitamin B-12] Losartan [Cozaar] 50 mg PO DAILY 04/09/21 04/09/21 Multivitamins, Thera [Multivitamin 1 tab PO DAILY 04/09/21 04/09/21 (formulary)] Allergies Allergy/AdvReac Type Severity Reaction Status Date / Time orange Allergy Rash/Hives Verified 04/09/21 13:42 sulfamethoxazole Allergy Unknown Verified 04/09/21 13:42 [From Bactrim] Childhood trimethoprim [From Bactrim] Allergy Unknown Verified 04/09/21 13:42 Childhood Review of Systems ROS Statement: Those systems with pertinent positive or pertinent negative responses have been documented in the HPI. ROS Other: All systems not noted in ROS Statement are negative. EKG Findings - EKG Results: EKG: interpreted by ERMD, WNL, sinus rhythm, normal axis, normal QRS, normal ST/T, no acute changes (Normal sinus rhythm of 60. A 158 QRS 88 QT T/QTC 410/410 this is a normal-appearing EKG) Past Medical History Past Medical History: Asthma, Hypertension, Myocardial Infarction ([place]) Additional Past Medical History / Comment(s): Gestational diabetes, three weeks History of Any Multi-Drug Resistant Organisms: None Reported Past Surgical History: Adenoidectomy, Heart Catheterization With Stent, Tonsillectomy Additional Past Surgical History / Comment(s): gastric sleeve Past Anesthesia/Blood Transfusion Reactions: No Reported Reaction Past Psychological History: Anxiety, Depression Smoking Status: Never smoker Past Alcohol Use History: None Reported Past Drug Use History: None Reported - Past Family History Mother Family Medical History: Diabetes Mellitus, Hypertension General Exam - General Exam Comments Initial Comments: This is a well-developed well-nourished awake alert oriented 3 female Limitations: no limitations General appearance: alert, in no apparent distress Head exam: Present: atraumatic, normocephalic, normal inspection Eye exam: Present: normal appearance, PERRL, EOMI. Absent: scleral icterus, conjunctival injection, periorbital swelling ENT exam: Present: normal exam, mucous membranes moist Neck exam: Present: normal inspection, full ROM, other. Absent: tenderness, meningismus, lymphadenopathy Respiratory exam: Present: normal lung sounds bilaterally, chest wall tenderness (No stridor JVD or bruits reproducible tenderness palpation over the left costal sternal margin no step-off or crepitation. Palpation does reproduce the patient's pain). Absent: respiratory distress, wheezes, rales, rhonchi, stridor Cardiovascular Exam: Present: regular rate, normal rhythm, normal heart sounds. Absent: systolic murmur, diastolic murmur, rubs, gallop, clicks GI/Abdominal exam: Present: soft, normal bowel sounds. Absent: distended, tenderness, guarding, rebound, rigid Extremities exam: Present: normal inspection, full ROM, normal capillary refill. Absent: tenderness, pedal edema, joint swelling, calf tenderness Back exam: Present: normal inspection Neurological exam: Present: alert, oriented X3, CN II-XII intact Psychiatric exam: Present: normal affect, normal mood Skin exam: Present: warm, dry, intact, normal color. Absent: rash Course Vital Signs 04/09/21 04/09/21 11:50 13:31 Temperature 97.6 F 98 F Pulse Rate 63 62 Respiratory 18 18 Rate Blood Pressure 143/88 139/98 O2 Sat by Pulse 100 99 Oximetry Chest Pain MDM - MDM I did discuss the findings with the patient imaging shows no evidence of pulmonary and was in. Patient will be discharged we did a long discussion about the findings the presentation is consistent with chest wall pain and costochondritis. Patient be discharged I did recommend Tylenol for pain and warm compresses. Disposition Clinical Impression: Costochondritis, Chest wall syndrome Disposition: HOME SELF-CARE Condition: Good Instructions (If sedation given, give patient instructions): Costochondritis (ED) Additional Instructions: Amoxicillin, for pain, warm compresses Is patient prescribed a controlled substance at d/c from ED?: No Referrals: Vesna Whelan MD [Primary Care Provider] - 1-2 days
[2021-04-09 13:06] LABS: ALT 17 U/L (4-34); African American GFR (CKD) >90 (>60 ml/min/1.73 sqM); Albumin 3.8 g/dL (3.5-5.0); Anion Gap 4 mmol/L; Blood Urea Nitrogen 16 mg/dL (7-17); Calcium 8.7 mg/dL (8.4-10.2); Carbon Dioxide 24 mmol/L (22-30); Chloride 110 mmol/L (98-107); Creatine Kinase 106 U/L (30-135); Glucose 129 mg/dL (74-99); Lipase 134 U/L (23-300); Non-African American GFR(CKD) >90 (>60 ml/min/1.73 sqM); Sodium 138 mmol/L (137-145); Total Bilirubin 0.8 mg/dL (0.2-1.3); Total Protein 6.5 g/dL (6.3-8.2)
[2021-04-09 13:07] LABS: AST 37 U/L (14-36); Magnesium 1.9 mg/dL (1.6-2.3); Potassium 4.4 mmol/L (3.5-5.1)
[2021-04-09 13:08] LABS: Alkaline Phosphatase 39 U/L (38-126)
--- NOTE | 2021-04-09 13:08 | XR ---
EXAMINATION TYPE: XR chest 2V DATE OF EXAM: 04/09/2021 COMPARISON: Chest x-ray 09/16/2020 HISTORY: Chest pain TECHNIQUE: Frontal and lateral views of the chest are obtained. FINDINGS: There is no focal air space opacity, pleural effusion, or pneumothorax seen. The cardiac silhouette size is within normal limits. The osseous structures are intact, there is persistent malena vation right hemidiaphragm, there are overlying leads, surgical clips present in the left upper quadr ant, there is a slight spinal curvature. IMPRESSION: No acute cardiopulmonary process.
[2021-04-09 13:20] LABS: Basophils % (A) 1 %; Eosinophils # (A) 0.1 k/uL (0-0.7); Eosinophils % (A) 2 %; HCT 35.6 % (34.0-46.0); HGB 12.4 gm/dL (11.4-16.0); Lymphocytes # (A) 1.2 k/uL (1.0-4.8); Lymphocytes % (A) 27 %; MCH 30.5 pg (25.0-35.0); MCHC 34.8 g/dL (31.0-37.0); MCV 87.6 fL (80.0-100.0); Mean Platelet Volume 7.5; Monocytes # (A) 0.2 k/uL (0-1.0); Monocytes % (A) 5 %; Neutrophils # (A) 2.9 k/uL (1.3-7.7); Neutrophils % (A) 64 %; Platelet Count 251 k/uL (150-450); RBC 4.07 m/uL (3.80-5.40); RDW 13.8 % (11.5-15.5); WBC 4.5 k/uL (3.8-10.6)
[2021-04-09 13:33] VITALS: TEMP 98
[2021-04-09 13:43] LABS: INR 0.9 (<1.2); Prothrombin Time 10.1 sec (9.0-12.0)
[2021-04-09 14:11] LABS: D-Dimer 2.29 mg/L FEU (<0.60); Partial Thromboplastin Time 20.1 sec (22.0-30.0)
--- NOTE | 2021-04-09 14:59 | CT ---
EXAMINATION TYPE: CT angio chest DATE OF EXAM: 04/09/2021 COMPARISON: 05/04/2020 HISTORY: 35-year-old female Chest pain. TECHNIQUE: Contiguous axial scanning of the chest performed with IV Contrast, patient injected with 1 00 mL of Isovue 370. Coronal/sagittal MIP reconstructions performed. CT DLP: 563.7 mGycm Automated exposure control for dose reduction was used. FINDINGS: Heart upper limits of normal in size without pericardial effusion. No flattening of the interventricu lar septum or reflux of contrast into the hepatic veins. Mild ectasia ascending aorta at 3.7 cm. Conventional arch vessel branching anatomy. Satisfactory opacification of the pulmonary arterial system but with breathing motion artifact. No de finite pulmonary embolus. No thoracic lymphadenopathy by CT size criteria. Some nodular and strandy subpleural atelectasis in the posterior bilateral lower lobes. No consolidat ion or pleural effusion. There is a small to moderate-sized hiatal hernia with postsurgical changes of sleeve gastrectomy. Nonspecific 1 cm hypodensity right hepatic dome, probable tiny cyst. Some ingested medication tablets are noted within the left side of the colon. Bones: Accentuated lower thoracic kyphosis with mild degenerative disc disease. IMPRESSION: 1. MILD MOTION ARTIFACT. NO EVIDENCE FOR PULMONARY EMBOLUS. 2. SOME SCATTERED AREAS OF SUBSEGMENTAL ATELECTASIS. 3. SMALL TO MODERATE-SIZED HIATAL HERNIA ALONG WITH POSTSURGICAL CHANGE OF SLEEVE GASTRECTOMY.
[2021-04-09 15:23] VITALS: BP 139/82; PULSE 56
== END 2021-04-09 15:20 | disposition home or self-care (01) ==
LOC: EC 11:48
DX: M94.0 Chondrocostal junction syndrome [Tietze] (principal); I10 Essential (primary) hypertension; I25.2 Old myocardial infarction; J45.909 Unspecified asthma, uncomplicated; Z79.82 Long term (current) use of aspirin; Z79.899 Other long term (current) drug therapy; Z88.2 Allergy status to sulfonamides; Z91.018 Allergy to other foods
CPT/HCPCS: 36415; 93005; 85379; 83880; 80053; 82550; 83690; 83735; 84484; 85025; 85610; 85730; 71046; 71275; 99285; 96374; J1885; Q9967; 99284

== ENCOUNTER → 2021-11-23 | Outpatient (CLI) | payer BC ==
[2021-11-23 15:13] LABS: Basophils # (A) 0.02 X 10*3/uL (0.00-0.10); Basophils % (A) 0.5 %; Eosinophils # (A) 0.04 X 10*3/uL (0.04-0.35); Eosinophils % (A) 1.1 %; HCT 39.2 % (37.2-46.3); HGB 12.6 g/dL (12.0-15.0); Immature Grans, Automated 0.5 %; Lymphocytes # (A) 1.03 X 10*3/uL (0.90-5.00); Lymphocytes % (A) 27.4 %; MCH 29.6 pg (27.0-32.0); MCHC 32.1 g/dL (32.0-37.0); MCV 92.2 fL (80.0-97.0); Mean Platelet Volume 10.8 fL (9.5-12.2); Monocytes # (A) 0.29 X 10*3/uL (0.20-1.00); Monocytes % (A) 7.7 %; NRBC Per 100 WBC 0 /100 WBCS (0.0-0.0); Neutrophils # (A) 2.36 X 10*3/uL (1.80-7.70); Neutrophils % (A) 62.8 %; Platelet Count 250 X 10*3/uL (140-440); RBC 4.25 X 10*6/uL (4.10-5.20); RDW 13.2 % (11.5-14.5); WBC 3.76 X 10*3/uL (4.50-10.00)
--- NOTE | 2021-11-26 10:01 | MM ---
Reason for exam: screening (asymptomatic). Baseline mammogram. History: Family history of breast cancer in maternal grandmother at age 60. Physical Findings: Nurse did not find any significant physical abnormalities on exam. MG Screening Mammo w CAD Bilateral CC and MLO view(s) were taken. There are scattered fibroglandular densities. There is no discrete abnormality. ASSESSMENT: Negative, BI-RAD 1 RECOMMENDATION: Routine screening mammogram of both breasts in 1 year.
== END | disposition home or self-care (01) ==
LOC: RADMAMWWP 08:05
PROVIDERS: ATTEND Obstetrics & Gynecology
DX: Z12.31 Encounter for screening mammogram for malignant neoplasm of breast (principal)
CPT/HCPCS: 36415; 77067; 85025

== ENCOUNTER 2021-12-11 06:16 | Day surgery (SDC) | payer BC ==
[2021-12-07 11:00] VITALS: BMI 32.5
--- NOTE | 2021-12-10 19:55 | P.HPOB ---
History of Present Illness H&P Date: 12/10/21 Chief Complaint: Menorrhagia with regular cycle This is a 36 y.o. female, 3, para 3, who presents for dilatation and curettage with hysteroscopy and Novasure endometrial ablation due to menorrhagia with regular cycle. She complains of menses occurring every 27 days and lasting 5-6 days. Her menses are heavy and painful to the point she has to use overnight pads and changes at least 6 times per day. Her ultrasound showed uterus measured 9.7 x 7.2 x 5.6 cm with endometrium measuring 10.4 mm with small cysts on both ovaries. There was a questionable uterine septum measuring 2.3 cm, but this was never noted on any of her ultrasounds. OB Hx: . History of 3 vaginal deliveries. [place] Hx: No history of STDs. had a vasectomy. Social Hx: . Works at [employer]. Review of Systems Constitutional: Reports weight loss, Denies chills, Denies fever Eyes: denies blurred vision, denies pain Ears, nose, mouth and throat: Denies headache, Denies sore throat Cardiovascular: Denies chest pain, Denies shortness of breath Respiratory: Denies cough Gastrointestinal: Denies abdominal pain, Denies diarrhea, Denies nausea, Denies vomiting Genitourinary: Reports dysmenorrhea, Reports menorrhagia Menstruation: Reports period heavy Musculoskeletal: Denies myalgias Integumentary: Denies pruritus, Denies rash Neurological: Denies numbness, Denies weakness Psychiatric: Denies anxiety, Denies depression Past Medical History Past Medical History: Asthma, Hypertension, Myocardial Infarction ([place]) Additional Past Medical History / Comment(s): Hx Gestational Diabetes. Last Myocardial Infarction Date:: 10/23/19 History of Any Multi-Drug Resistant Organisms: None Reported Past Surgical History: Adenoidectomy, Bariatric Surgery, Heart Catheterization With Stent, Tonsillectomy Additional Past Surgical History / Comment(s): Gastric sleeve. 1 stent. Past Anesthesia/Blood Transfusion Reactions: No Reported Reaction Date of Last Stent Placement:: 10/23/19 Past Psychological History: Anxiety, Depression Additional Psychological History / Comment(s): Hx depression. Smoking Status: Never smoker Past Alcohol Use History: None Reported Past Drug Use History: None Reported - Past Family History Mother Family Medical History: Diabetes Mellitus, Hypertension Medications and Allergies Home Medications Medication Instructions Recorded Confirmed Type Isosorbide Dinitrate 30 mg PO QAM 09/16/20 12/11/21 History Aspirin EC [Ecotrin Low Dose] 81 mg PO DAILY 04/09/21 12/07/21 History Cyanocobalamin (Vitamin B-12) 1,000 mcg PO DAILY 04/09/21 12/07/21 History [Vitamin B-12] Losartan [Cozaar] 25 mg PO HS 04/09/21 12/11/21 History Multivitamins, Thera [Multivitamin 1 tab PO DAILY 04/09/21 12/07/21 History (formulary)] Allergies Allergy/AdvReac Type Severity Reaction Status Date / Time orange Allergy Rash/Hives Verified 12/11/21 06:47 sulfamethoxazole Allergy Unknown Verified 12/11/21 06:47 [From Bactrim] Childhood trimethoprim [From Bactrim] Allergy Unknown Verified 12/11/21 06:47 Childhood Exam Osteopathic Statement: *. No significant issues noted on an osteopathic structural exam other than those noted in the History and Physical/Consult. HEENT: within normal limits Heart: regular rate and rhythm Lungs: clear to auscultation bilaterally Abdomen: soft, non-tender Pelvic: uterus anteverted, mildly tender, no adnexal masses or tenderness bilaterally Extremities: negative Gualberto's Assessment and Plan (1) Menorrhagia with regular cycle Current Visit: No Status: Acute Code(s): N92.0 - EXCESSIVE AND FREQUENT MENSTRUATION WITH REGULAR CYCLE SNOMED Code(s): 374686596 Plan: Proceed with dilatation and curettage with hysteroscopy with Novasure endometrial ablation. Cardiac clearance was obtained by Dr. Spangler. I have discussed the risks, benefits, and alternative therapies for the above- mentioned procedure and for both sedation/anesthesia as well as necessary blood products administration, if indicated, as they pertain to this patient. The patient has indicated her understanding and acceptance of the risks and procedures discussed.
[~2021-12-11 06:16] MED LIST: DEXAMETHASONE SOD PHOSPHATE 4 MG/ML 1 ML VIAL IV ONE; LACTATED RINGERS 1,000 ML IV SCH; LIDOCAINE 1% (10MG/ML) FOR IV START INTRADERMA PRN; MIDAZOLAM 2 MG/2 ML VIAL IV PRN; ONDANSETRON 4 MG/2 ML VIAL IVP ONE; Pre Op ABX Message 1 EACH MISC MISCELLANE ONE
[2021-12-11] MEDS ORDERED: HYDROmorphone 0.5 MG/0.5 ML SYRINGE IVP PRN (07:00)
[2021-12-11] MEDS ORDERED: fentaNYL (PF) 50 MCG/ML 2 ML AMP ONE (07:32)
[2021-12-11] MEDS ORDERED: PROPOFOL 10 MG/ML 20 ML VIAL IV ONE (07:32)
[2021-12-11] MEDS ORDERED: MIDAZOLAM 2 MG/2 ML VIAL ONE (07:32)
[2021-12-11] MEDS ORDERED: LIDOCAINE 1% INJ 10MG/ML (20 ML MDV) ONE (07:32)
--- NOTE | 2021-12-11 08:07 | P.OP ---
Date of Procedure: 12/11/21 Preoperative Diagnosis: Menorrhagia with regular cycle Postoperative Diagnosis: Same Procedure(s) Performed: Dilation and curettage with hysteroscopy and NovaSure endometrial ablation Anesthesia: other (Mask general) Surgeon: Jacqueline Loja Estimated Blood Loss (ml): 5 Pathology: other (Endometrial curettings) Condition: stable Disposition: same day Indications for Procedure: This is a 36 y.o. female, 3, para 3, who presents for dilatation and curettage with hysteroscopy and Novasure endometrial ablation due to menorrhagia with regular cycle. She complains of menses occurring every 27 days and lasting 5-6 days. Her menses are heavy and painful to the point she has to use overnight pads and changes at least 6 times per day. Her ultrasound showed uterus measured 9.7 x 7.2 x 5.6 cm with endometrium measuring 10.4 mm with small cysts on both ovaries. There was a questionable uterine septum measuring 2.3 cm, but this was never noted on any of her ultrasounds. Operative Findings: Uterus is sounded to 10 cm. Cervix is sounded to 3 cm. Upon hysteroscopy a slightly dyssynchronous endometrial appearance was noted. Both tubal ostia are noted. No specific polyps or fibroids are visualized. A large amount of endometrial curettings are obtained. Also of note she did have grade 2 uterine prolapse along with grade 2 cystocele and grade 2 rectocele. Description of Procedure: The patient is taken to the operating room. She is placed in the dorsal lithotomy position after general anesthesia was given. She is prepped and draped in the normal sterile fashion. Bladder is drained with a catheter and then removed. Pelvic exam is performed under anesthesia. Uterus is found to be anteverted with no adnexal masses. She is placed in slight Trendelenburg position. A right angle retractor is used to visualize the cervix. The anterior lip of the cervix is grasped with an Allis clamp. Cervix is sounded to 3 cm. Uterus is sounded to 10 cm. Cervix is gently dilated with Campos dilators until a hysteroscope could be passed. Hysteroscopy is performed using normal saline. The above noted findings are noted. Next a polyp forceps is introduced. A moderate amount of tissue was obtained. Next medium-sized size sharp curette was placed. A large amount of endometrial curettings were obtained. Next NovaSure array was inserted into the endometrial cavity. Length was set at 6.5 cm and width was determined to be 4.7 cm. Next cavity assessment was completed and passed on the first try. Next NovaSure array was fired at 168 W for 56 seconds. Next the array was removed, inspected and then discarded. Next the hysteroscope was reinserted. Uniform charring was noted. Pictures were taken. Hysteroscope was removed. The Allis clamp was removed from the anterior lip of the cervix. No bleeding was noted. All other instruments removed from the vagina. Sponge counts were correct. Patient is taken to recovery room in stable condition.
[2021-12-11 08:17] VITALS: TEMP 96.8
[2021-12-11 08:19] VITALS: RESP 16
[2021-12-11 09:31] VITALS: BP 120/75; PULSE 65
== END 2021-12-11 09:59 | disposition home or self-care (01) ==
LOC: OR 06:16
PROVIDERS: ATTEND Obstetrics & Gynecology
DX: N92.0 Excessive and frequent menstruation with regular cycle (principal); J45.909 Unspecified asthma, uncomplicated; I25.2 Old myocardial infarction; Z98.84 Bariatric surgery status; Z95.5 Presence of coronary angioplasty implant and graft; Z98.890 Other specified postprocedural states; F41.9 Anxiety disorder, unspecified; F32.A Depression, unspecified; Z83.3 Family history of diabetes mellitus; Z82.49 Family history of ischemic heart disease and other diseases of the circulatory system; Z79.82 Long term (current) use of aspirin; Z79.899 Other long term (current) drug therapy; Z88.2 Allergy status to sulfonamides; Z91.018 Allergy to other foods
CPT/HCPCS: 81025; 88305; 58563; J2250; J1100; J2405; J2001; J3010; J2704; J1170; J1790

== ENCOUNTER → 2022-04-15 | Outpatient (CLI) | payer BC ==
[2022-04-15 10:32] LABS: African American GFR (CKD) >90 (>60 ml/min/1.73 sqM); Blood Urea Nitrogen 17 mg/dL (7-17); Non-African American GFR(CKD) 88 (>60 ml/min/1.73 sqM)
--- NOTE | 2022-04-15 11:33 | CT ---
EXAMINATION TYPE: CT angio chest DATE OF EXAM: 04/15/2022 COMPARISON: CT dated 04/09/2021 HISTORY: Thoracic aortic aneurysm without rupture CT DLP: 728.7 mGy.cm. Automated Exposure Control for Dose Reduction was Utilized. TECHNIQUE AND CONTRAST: CTA scan of the thorax is performed without and with IV Contrast, patient injected with 100 mL of Iso margaret 300, aneurysm protocol. MIP and 3-D Images are created on an independent workstation and review ed. FINDINGS: Motion artifacts at the level of the aortic root. The ascending aorta measures up to 3.9 cm. Unremark able remainder of the thoracic and upper abdominal aorta. Unremarkable major mediastinal arteries. Th e pulmonary trunk measures 3.3 cm suggestive of pulmonary hypertension. Slightly dilated left ventric le. No pleural or pericardial effusion. No definite lung nodule or suspicious lung lesion. Patent trachea and main bronchi. No pathologically enlarged lymph nodes in the chest. Thickened inferior aspect of the esophagus, esophagitis or esopha geal lesion cannot be excluded. Previous sleeve gastrectomy. Hiatal hernia containing portion of the stomach. Degenerative changes of the mid to lower thoracic spine. IMPRESSION: Dilated ascending aorta measuring up to 3.9 cm. Unremarkable remainder of the thoracic and upper abdo janis aorta. Other findings as described above.
== END | disposition home or self-care (01) ==
LOC: RADCTMAIN 09:59
PROVIDERS: ATTEND Thoracic Surgery (Cardiothoracic Vascular Surgery)
DX: I71.2 Thoracic aortic aneurysm, without rupture (principal)
CPT/HCPCS: 82565; 84520; 71275; 36415; Q9967

== ENCOUNTER → 2023-04-14 | Outpatient (CLI) | payer BC ==
--- NOTE | 2023-04-14 15:02 | CT ---
EXAMINATION TYPE: CT angio chest DATE OF EXAM: 04/14/2023 COMPARISON: 04/15/2022 HISTORY: thoracic aneurysm CT DLP: 412.8 mGycm, Automated exposure control for dose reduction was used. CONTRAST: Performed injected with 100 mL of Isovue 370. TECHNIQUE: Axial images were obtained at 5 mm thick sections. Reconstructed images are reviewed on [employer] computer in the coronal plane. FINDINGS: Portion of the thyroid visualized is normal. No suspicious lung nodules or focal infiltrates are present. No enlarged mediastinal or hilar adenopathy is evident. The ascending aorta diameter at the level o f the main pulmonary artery is 4.0 cm. Previous measurement 3.9 cm. The main pulmonary artery diamete r at the bifurcation is 3.0 cm. No significant coronary artery calcifications present. Limited CT sections are obtained through the upper abdomen. Gastric sleeve surgery is evident. IMPRESSIONS: 1. Ascending thoracic aorta appears to measure 4.0 cm and is essentially stable from comparison study . Continued monitoring can be performed
== END | disposition home or self-care (01) ==
LOC: RADCTMAIN 09:24
PROVIDERS: ATTEND Thoracic Surgery (Cardiothoracic Vascular Surgery)
DX: I71.21 Aneurysm of the ascending aorta, without rupture (principal)
CPT/HCPCS: 71275; Q9967

== ENCOUNTER 2023-04-27 12:31 | Emergency (ER) | payer BC ==
[2023-04-27 12:48] VITALS: TEMP 98.6
[2023-04-27] MEDS ORDERED: ONDANSETRON 4 MG/2 ML VIAL IVP STA (13:03)
[2023-04-27] MEDS ORDERED: HYDROmorphone 1 MG/ML 1 ML SYRINGE IVP STA (13:03)
[2023-04-27] MEDS ORDERED: PANTOPRAZOLE 40 MG/10 ML VIAL IVP STA (13:03)
--- NOTE | 2023-04-27 13:07 | ED ---
General Adult HPI - General Chief complaint: Abdominal Pain Stated complaint: Abd Pain Time Seen by Provider: 04/27/23 12:53 Source: patient, RN notes reviewed Mode of arrival: ambulatory Limitations: no limitations - History of Present Illness Initial comments: Patient is a pleasant 37-year-old female presenting to the emergency Department with epigastric pain. Onset of symptoms was 4 days ago. Symptoms were mild and dull however today is starting to become severe. Patient has mild nausea. Mild decreased appetite. Patient denies chest pain however pain does radiate to the mid upper back. No history of similar symptoms previous it. Patient does have history of MO 4 years ago just following giving childbirth. No vomiting. No constipation or diarrhea. Patient does have history of aneurysm and states she does have recent computed tomography scan that was reported as normal to her. - Related Data Home Medications Medication Instructions Recorded Confirmed Isosorbide Dinitrate 30 mg PO QAM 09/16/20 12/11/21 Aspirin EC [Ecotrin Low Dose] 81 mg PO DAILY 04/09/21 12/07/21 Cyanocobalamin (Vitamin B-12) 1,000 mcg PO DAILY 04/09/21 12/07/21 [Vitamin B-12] Losartan [Cozaar] 25 mg PO HS 04/09/21 12/11/21 Multivitamins, Thera [Multivitamin 1 tab PO DAILY 04/09/21 12/07/21 (formulary)] Previous Rx's Medication Instructions Recorded Sucralfate [Carafate] 1 gm PO ACHS #250 ml 04/27/23 Allergies Allergy/AdvReac Type Severity Reaction Status Date / Time orange Allergy Rash/Hives Verified 04/27/23 12:48 sulfamethoxazole Allergy Unknown Verified 04/27/23 12:48 [From Bactrim] Childhood trimethoprim [From Bactrim] Allergy Unknown Verified 04/27/23 12:48 Childhood Review of Systems ROS Statement: Those systems with pertinent positive or pertinent negative responses have been documented in the HPI. ROS Other: All systems not noted in ROS Statement are negative. Constitutional: Denies: fever Eyes: Denies: eye pain ENT: Denies: ear pain Respiratory: Denies: cough, dyspnea Cardiovascular: Denies: chest pain Endocrine: Denies: fatigue Gastrointestinal: Reports: as per HPI, abdominal pain, nausea. Denies: vomiting Genitourinary: Denies: dysuria Musculoskeletal: Reports: as per HPI Skin: Denies: rash Neurological: Denies: weakness Past Medical History Past Medical History: Hypertension Additional Past Medical History / Comment(s): Gestational diabetes, three weeks History of Any Multi-Drug Resistant Organisms: None Reported Past Surgical History: Adenoidectomy, Heart Catheterization With Stent, Tonsillectomy Additional Past Surgical History / Comment(s): gastric sleeve Past Anesthesia/Blood Transfusion Reactions: No Reported Reaction Past Psychological History: Anxiety, Depression Smoking Status: Never smoker Past Alcohol Use History: None Reported Past Drug Use History: None Reported - Past Family History Mother Family Medical History: Diabetes Mellitus, Hypertension General Exam Limitations: no limitations General appearance: alert Head exam: Present: normocephalic Eye exam: Present: normal appearance Neck exam: Present: normal inspection Respiratory exam: Present: normal lung sounds bilaterally Cardiovascular Exam: Present: regular rate, normal rhythm Expanded Peripheral pulses: 2+: Posterior Tibialis (R), Posterior Tibialis (L), Dorsalis Pedis (R), Dorsalis Pedis (L) GI/Abdominal exam: Present: soft, normal bowel sounds. Absent: distended, tenderness, guarding, rebound, rigid, pulsatile mass Extremities exam: Present: normal inspection. Absent: pedal edema, calf tenderness Back exam: Present: tenderness (Mild tenderness mid thoracic region) Neurological exam: Present: alert. Absent: motor sensory deficit Psychiatric exam: Present: normal affect, normal mood Skin exam: Present: normal color Course Vital Signs 04/27/23 04/27/23 12:44 13:26 Temperature 98.6 F Pulse Rate 88 75 Respiratory 20 22 Rate Blood Pressure 105/85 125/87 O2 Sat by Pulse 98 96 Oximetry EKG Findings - EKG Results: EKG: interpreted by ERMD, sinus rhythm, normal axis, normal QRS, normal ST/T Medical Decision Making - Medical Decision Making Was pt. sent in by a medical professional or institution (, PA, STRING WINDING MACHINE OPERATOR, urgent care, hospital, or fci...) When possible be specific @ -No Did you speak to anyone other than the patient for history (EMS, parent, family, police, friend...)? What history was obtained from this source @ -No Did you review nursing and triage notes (agree or disagree)? Why? @ -I reviewed and agree with nursing and triage notes Were old charts reviewed (outside hosp., previous admission, EMS record, old EKG, old radiological studies, urgent care reports/EKG's, fci records)? Report findings @ -No old charts were reviewed Differential Diagnosis (chest pain, altered mental status, abdominal pain women, abdominal pain men, vaginal bleeding, weakness, fever, dyspnea, syncope, headache, dizziness, GI bleed, back pain, seizure, CVA, palpatations, mental health, musculoskeletal)? @ -Differential Abdominal Pain Women: Appendicitis, Cholecystitis, diverticulosis, ischemic bowel, pancreatitis, hepatitis, UTI, gastroenteritis, AAA, incarcerated hernia, bowel obstruction, constipation, inflammatory bowel, hepatitis, peptic ulcer disease, splenic infarction, perforated viscus, vulvitis, ovarian torsion, PID, kidney stone, placenta abruption, this is not meant to be an all-inclusive list EKG interpreted by me (3pts min.). @ -As above X-rays interpreted by me (1pt min.). @ -None done CT interpreted by me (1pt min.). @ -CT report reviewed U/S interpreted by me (1pt. min.). @ -None done What testing was considered but not performed or refused? (CT, X-rays, U/S, labs)? Why? @ -None What meds were considered but not given or refused? Why? @ -None Did you discuss the management of the patient with other professionals (professionals i.e. , PA, STRING WINDING MACHINE OPERATOR, lab, RT, psych nurse, manager social work, mine engineering superintendent, teacher, correctional officer chief, family independence case manager)? Give summary @ -No Was smoking cessation discussed for >3mins.? @ -No Was critical care preformed (if so, how long)? @ -No Were there social determinants of health that impacted care today? How? (Homelessness, low income, unemployed, alcoholism, drug addiction, transportation, low edu. Level, literacy, decrease access to med. care, assisted, rehab)? @ -No Was there de-escalation of care discussed even if they declined (Discuss DNR or withdrawal of care, Hospice)? DNR status @ -No What co-morbidities impacted this encounter? (DM, HTN, Smoking, COPD, CAD, Cancer, CVA, ARF, Chemo, Hep., AIDS, mental health diagnosis, sleep apnea, morbid obesity)? @ -None Was patient admitted / discharged? Hospital course, mention meds given and route, prescriptions, significant lab abnormalities, going to OR and other pertinent info. @ -Patient reevaluated and significantly improved with medications. Patient looks much better and is happy and comfortable with discharge home. Patient is on Protonix and will continue this. Patient is receptive to Carafate. Undiagnosed new problem with uncertain prognosis? @ -No Drug Therapy requiring intensive monitoring for toxicity (Heparin, Nitro, Insulin, Cardizem)? @ -No Were any procedures done? @ -No Diagnosis/symptom? @ -Abdominal pain Acute, or Chronic, or Acute on Chronic? @ -Acute Uncomplicated (without systemic symptoms) or Complicated (systemic symptoms)? @ -default Side effects of treatment? @ -No Exacerbation, Progression, or Severe Exacerbation? @ -No Poses a threat to life or bodily function? How? (Chest pain, USA, MO, pneumonia, PE, COPD, DKA, ARF, appy, cholecystitis, CVA, Diverticulitis, Homicidal, Suici hans, threat to staff... and all critical care pts) @ -No - Lab Data Result diagrams: 04/27/23 12:59 04/27/23 12:59 Lab Results 04/27/23 04/27/23 04/27/23 Range/Units 12:59 12:59 12:59 WBC 9.4 (3.8-10.6) k/uL RBC 4.62 (3.80-5.40) m/uL Hgb 14.1 (11.4-16.0) gm/dL Hct 40.1 (34.0-46.0) % MCV 86.8 (80.0-100.0) fL MCH 30.4 (25.0-35.0) pg MCHC 35.0 (31.0-37.0) g/dL RDW 12.5 (11.5-15.5) % Plt Count 284 (150-450) k/uL MPV 8.3 Neutrophils % 69 % Lymphocytes % 24 % Monocytes % 5 % Eosinophils % 1 % Basophils % 0 % Neutrophils # 6.5 (1.3-7.7) k/uL Lymphocytes # 2.3 (1.0-4.8) k/uL Monocytes # 0.4 (0-1.0) k/uL Eosinophils # 0.1 (0-0.7) k/uL Basophils # 0.0 (0-0.2) k/uL PT 9.7 (9.0-12.0) sec INR 0.9 (<1.2) APTT 22.8 (22.0-30.0) sec Sodium 135 L (137-145) mmol/L Potassium 4.1 (3.5-5.1) mmol/L Chloride 102 (98-107) mmol/L Carbon Dioxide 23 (22-30) mmol/L Anion Gap 10 mmol/L BUN 13 (7-17) mg/dL Creatinine 0.70 (0.52-1.04) mg/dL Est GFR (CKD-EPI)AfAm >90 (>60 ml/min/1.73 sqM) Est GFR (CKD-EPI)NonAf >90 (>60 ml/min/1.73 sqM) Glucose 122 H (74-99) mg/dL Calcium 9.2 (8.4-10.2) mg/dL Total Bilirubin 1.0 (0.2-1.3) mg/dL AST 26 (14-36) U/L ALT 25 (4-34) U/L Alkaline Phosphatase 73 (38-126) U/L Troponin I (0.000-0.034) ng/mL Total Protein 6.4 (6.3-8.2) g/dL Albumin 4.0 (3.5-5.0) g/dL Amylase 99 (30-110) U/L Lipase 334 H (23-300) U/L 04/27/23 Range/Units 12:59 WBC (3.8-10.6) k/uL RBC (3.80-5.40) m/uL Hgb (11.4-16.0) gm/dL Hct (34.0-46.0) % MCV (80.0-100.0) fL MCH (25.0-35.0) pg MCHC (31.0-37.0) g/dL RDW (11.5-15.5) % Plt Count (150-450) k/uL MPV Neutrophils % % Lymphocytes % % Monocytes % % Eosinophils % % Basophils % % Neutrophils # (1.3-7.7) k/uL Lymphocytes # (1.0-4.8) k/uL Monocytes # (0-1.0) k/uL Eosinophils # (0-0.7) k/uL Basophils # (0-0.2) k/uL PT (9.0-12.0) sec INR (<1.2) APTT (22.0-30.0) sec Sodium (137-145) mmol/L Potassium (3.5-5.1) mmol/L Chloride (98-107) mmol/L Carbon Dioxide (22-30) mmol/L Anion Gap mmol/L BUN (7-17) mg/dL Creatinine (0.52-1.04) mg/dL Est GFR (CKD-EPI)AfAm (>60 ml/min/1.73 sqM) Est GFR (CKD-EPI)NonAf (>60 ml/min/1.73 sqM) Glucose (74-99) mg/dL Calcium (8.4-10.2) mg/dL Total Bilirubin (0.2-1.3) mg/dL AST (14-36) U/L ALT (4-34) U/L Alkaline Phosphatase (38-126) U/L Troponin I <0.012 (0.000-0.034) ng/mL Total Protein (6.3-8.2) g/dL Albumin (3.5-5.0) g/dL Amylase (30-110) U/L Lipase (23-300) U/L Disposition Clinical Impression: Abdominal pain Disposition: HOME SELF-CARE Condition: Stable Instructions (If sedation given, give patient instructions): Abdominal Pain (ED) Additional Instructions: Prescription sent to pharmacy. Please do follow-up with primary care physician in the next one to 2 days for recheck. Please also follow-up with surgeon in the next day or 2 for recheck. Return for increased pain, vomiting, fever, worsening or change in symptoms, chest pain or other concerns. Prescriptions: Sucralfate [Carafate] 1 gm PO ACHS #250 ml Is patient prescribed a controlled substance at d/c from ED?: No Referrals: Vesna Whelan MD [Primary Care Provider] - 1-2 days Fareed Whelan MD [Medical Doctor] - 1-2 days Time of Disposition: 15:55
[2023-04-27 13:26] LABS: Glucose 122 mg/dL (74-99)
[2023-04-27 13:27] LABS: ALT 25 U/L (4-34); AST 26 U/L (14-36); African American GFR (CKD) >90 (>60 ml/min/1.73 sqM); Alkaline Phosphatase 73 U/L (38-126); Amylase 99 U/L (30-110); Anion Gap 10 mmol/L; Blood Urea Nitrogen 13 mg/dL (7-17); Calcium 9.2 mg/dL (8.4-10.2); Carbon Dioxide 23 mmol/L (22-30); Chloride 102 mmol/L (98-107); Lipase 334 U/L (23-300); Non-African American GFR(CKD) >90 (>60 ml/min/1.73 sqM); Potassium 4.1 mmol/L (3.5-5.1); Sodium 135 mmol/L (137-145); Total Protein 6.4 g/dL (6.3-8.2)
[2023-04-27 13:32] LABS: Basophils % (A) 0 %; Eosinophils # (A) 0.1 k/uL (0-0.7); Eosinophils % (A) 1 %; HCT 40.1 % (34.0-46.0); HGB 14.1 gm/dL (11.4-16.0); Lymphocytes # (A) 2.3 k/uL (1.0-4.8); Lymphocytes % (A) 24 %; MCH 30.4 pg (25.0-35.0); MCV 86.8 fL (80.0-100.0); Mean Platelet Volume 8.3; Monocytes # (A) 0.4 k/uL (0-1.0); Monocytes % (A) 5 %; Neutrophils # (A) 6.5 k/uL (1.3-7.7); Neutrophils % (A) 69 %; Platelet Count 284 k/uL (150-450); RBC 4.62 m/uL (3.80-5.40); RDW 12.5 % (11.5-15.5); WBC 9.4 k/uL (3.8-10.6)
[2023-04-27 13:33] LABS: INR 0.9 (<1.2); Partial Thromboplastin Time 22.8 sec (22.0-30.0); Prothrombin Time 9.7 sec (9.0-12.0)
--- NOTE | 2023-04-27 15:04 | CT ---
EXAMINATION TYPE: CT angio thor/abd CT DLP: 831.7 mGycm, Automated exposure control for dose reduction was used. DATE OF EXAM: 04/27/2023 2:46 PM COMPARISON: 04/14/2023 CLINICAL INDICATION:Female, 37 years old with history of pain, hx aneurysm; TECHNIQUE: Multiple thin slice sub-millimeter images were obtained through the chest and abdomen afte r administration of contrast. 3-D reconstructed images and maximum intensity projection images were obtained of the chest and abdomen, CT Contrast: Contrast used: 100 cc of Isovue-370 Oral contrast used: None FINDINGS: CTA Abdomen and pelvis: No evidence for intramural hematoma on noncontrast imaging. The ascending tho racic aorta measures up to 3.7 cm which is within normal limits. The descending thoracic aorta is wit hin normal limits. There is no evidence for aneurysm. No intimal flap to suggest dissection. The abdo janis aorta also demonstrates no evidence for aneurysmal dilation. The major vessels of the abdominal aorta patent. There is no evidence for atherosclerosis there is one renal artery bilaterally. Modera te dilation of the pulmonary artery up to 3.5 cm. No filling defects to suggest pulmonary embolus. Lungs/pleura: No focal consolidation, pneumothorax or pleural effusion. Heart: Within normal limits. Mediastinum: No gross evidence of adenopathy. Moderate hiatal hernia. Lower Neck: No significant findings. LIVER: Unremarkable GALLBLADDER AND BILE DUCTS: Unremarkable. PANCREAS: Unremarkable. SPLEEN: Unremarkable. ADRENAL GLANDS: Unremarkable. KIDNEYS AND URETERS: No evidence of hydronephrosis or renal calculus. The ureters are unremarkable. STOMACH AND BOWEL: No evidence of bowel obstruction. Post surgical changes to the gastroesophageal ju nction. There is a moderate hiatal hernia. PERITONEUM: No evidence of pneumoperitoneum or free fluid. VASCULATURE: No evidence of aortic aneurysm. MUSCULOSKELETAL: No acute osseous abnormalities LYMPH NODES: No gross evidence for lymphadenopathy. SOFT TISSUE/ABDOMINAL WALL: Unremarkable IMPRESSION 1. There is no evidence for aneurysm. Ascending thoracic aorta where measured orthogonally measures within normal limits at 3.7 cm. The descending thoracic aorta is also without any evidence for aneury sm. The visualized portions of the abdominal aorta demonstrate no evidence for aneurysm. There is no evidence for aneurysm in this patient. 2. Pulmonary hypertension suggested with dilated pulmonary artery. 3. No significant atherosclerotic disease identified. 4. No evidence of vascular occlusion. 5. Postsurgical changes to the gastroesophageal junction with moderate hiatal hernia.
[2023-04-27 16:35] VITALS: BP 112/78; PULSE 66; RESP 18
== END 2023-04-27 16:35 | disposition home or self-care (01) ==
LOC: EC 12:31
DX: R10.13 Epigastric pain (principal); M54.6 Pain in thoracic spine; I10 Essential (primary) hypertension; I25.2 Old myocardial infarction; Z79.82 Long term (current) use of aspirin; Z79.899 Other long term (current) drug therapy; Z88.1 Allergy status to other antibiotic agents; Z88.2 Allergy status to sulfonamides; Z91.018 Allergy to other foods
CPT/HCPCS: 36415; 93005; 80053; 82150; 83690; 84484; 85025; 85610; 85730; 71275; 74175; 99284; 96374; 96375 ×2; J2405; J1170; C9113; Q9967

== ENCOUNTER → 2023-10-30 | Outpatient (CLI) | payer BC ==
--- NOTE | 2023-11-02 16:58 | MM ---
Reason for Exam: Screening (asymptomatic). Last mammogram was performed 1 year(s) and 11 month(s) ago. Patient History: Menarche at age 9. First Full-Term at age 20. Maternal grandmother had breast cancer, age 60. Risk Values: Purvi 5 year model risk: 0.5%. NCI Lifetime model risk: 9.9%. Prior Study Comparison: 11/23/2021 Bilateral Screening Mammogram, [facility]. Tissue Density: There are scattered fibroglandular densities. Findings: Analyzed By CAD. The pattern is symmetrical and stable. No significant interval changes. No suspicious groups of microcalcifications, spiculated or lobular masses, architectural distortion or other secondary signs of malignancy are mammographically apparent. Overall Assessment: Benign, BI-RAD 2 Management: Screening Mammogram of both breasts in 1 year. A negative mammogram report should not preclude additional follow up of suspicious palpable abnormalities. Patient should continue monthly self breast exam. A clinical breast exam by your physician is recommended on an annual basis and results should be correlated with mammographic findings. Electronically signed and approved by: Scot Martins D.O. Radiologis
== END | disposition home or self-care (01) ==
LOC: RADMAMWWP 07:29
PROVIDERS: ATTEND Obstetrics & Gynecology
DX: Z12.31 Encounter for screening mammogram for malignant neoplasm of breast (principal); Z80.3 Family history of malignant neoplasm of breast
CPT/HCPCS: 77067